=== PATIENT | male | born 1960 | race Caucasian/White ===

== ENCOUNTER 2017-08-23 14:43 | Inpatient (IN) | payer SELFPAY ==
[~2017-08-23] VITALS: Ht 185.4 cm; Wt 96.5 kg
[~2017-08-23 14:43] MED LIST: ACET5SOL5 PO; CIPR500T4 PO; HYDR-3533 PO; METR-1 PO; POTA-243 PO; PROM25SU8 PO
[2017-08-23 14:47] VITALS: BP 124/83; PULSE 117; RESP 22; TEMP 98.8; O2SAT 92
[2017-08-23] MEDS ORDERED: SODIUM CHLORIDE 0.9% FLUSH 10 ML FLUSH IV FLUSH PRN ×2 (16:15→20:00)
[2017-08-23 16:46] LABS: AUTOMATED NEUTROPHIL # 9.2 TH/MM3 (1.8-7.7); BASOPHIL # 0.1 TH/MM3 (0-0.2); BASOPHIL % 0.9 % (0.0-2.0); EOSINOPHIL # 0.2 TH/MM3 (0-0.4); EOSINOPHIL % 1.7 % (0.0-4.0); HEMATOCRIT 37.3 % (39.0-51.0); LYMPH % 15.4 % (9.0-44.0); LYMPHOCYTE # 2.2 TH/MM3 (1.0-4.8); MEAN CELL VOLUME 100.3 FL (80.0-100.0); MEAN CORPUSCULAR HEMOGLOBIN 33.3 PG (27.0-34.0); MEAN CORPUSCULAR HGB CONC 33.2 % (32.0-36.0); MONO % 17.9 % (0.0-8.0); NEUT % 64.1 % (16.0-70.0); PLATELET COUNT 142 TH/MM3 (150-450); RED BLOOD COUNT 3.72 MIL/MM3 (4.50-5.90); RED CELL DISTRIBUTION WIDTH 19.3 % (11.6-17.2); WHITE BLOOD COUNT 14.3 TH/MM3 (4.0-11.0)
[2017-08-23 16:54] LABS: HEMO FLAGS AUTO DIFF
[2017-08-23 16:59] LABS: APTT (PATIENT) 34.3 SEC (24.3-30.1); INTERNATIONAL NORMALIZED RATIO 1.8 RATIO; PROTHROMBIN TIME - PATIENT 20.1 SEC (9.8-11.6)
[2017-08-23 17:04] LABS: ALT (GPT) 46 U/L (12-78)
[2017-08-23 17:06] LABS: ALKALINE PHOSPHATASE 157 U/L (45-117); ANION GAP 9 MEQ/L (5-15); AST (GOT) 135 U/L (15-37); BICARBONATE 20.8 MEQ/L (21.0-32.0); BLOOD UREA NITROGEN 21 MG/DL (7-18); CHLORIDE 102 MEQ/L (98-107); GLOMERULAR FILTRATION RATE 93 ML/MIN (>89); SODIUM (NA) 132 MEQ/L (136-145); TOTAL BILIRUBIN ADULT 10.7 MG/DL (0.2-1.0)
[2017-08-23 17:24] LABS: SCAN/DIFF AUTO DIFF CONFIRMED
[2017-08-23 17:25] LABS: PLATELET ESTIMATE SMEAR LOW (NORMAL); PLATELET MORPHOLOGY NORMAL (NORMAL)
[2017-08-23 17:43] LABS: BLOOD, URINE NEG (NEG); COMMENT (UR) CULT NOT INDICATED; CULTURE IF INDICATED CULT NOT INDICATED; GLUCOSE,URINE NEG (NEG); GRANULAR CAST, URINE 1 /lpf; HYALINE CAST, URINE 6 /lpf (RARE); KETONE, URINE NEG (NEG); MUCUS URINE MOD /lpf (OCC); NITRITE,URINE NEG (NEG)
[2017-08-23 17:44] LABS: URINE COLOR DARK-YELLOW (YELLW/STRAW)
[2017-08-23] MEDS ORDERED: IOHEXOL 350 MG/ML 10 ML VIAL (for RAD DIAG) IVCONTRAST ONE (17:46)
[2017-08-23] MEDS ORDERED: LIDOCAINE HCL 1% PF 30 ML VIAL INFIL ONE (18:15)
--- NOTE | 2017-08-23 18:22 | PD ---
HPI Chief Complaint: Abdominal Pain Time Seen by Provider: 15:57 Travel History International Travel<30 days: No Contact w/Intl Traveler<30days: No Traveled to known affect area: No History of Present Illness HPI This is a 70-year-old male who has a history of hepatitis C per our records who presents to the emergency department with 2 months of increasing shortness of breath and abdominal distention, constant, severe, associated with swelling and oozing from his legs. He went to [facility] and was told to follow-up with her primary care physician but he has no insurance. He says he used to drink pretty heavily and now he drinks about 1 glass of wine per day. He denies any history of IV drug use. PFSH Past Medical History Arthritis: No Asthma: No Autoimmune Disease: No Blood Disorders: No Anxiety: No Depression: No Heart Rhythm Problems: No Cancer: No Cardiovascular Problems: No High Cholesterol: No Chest Pain: No Congestive Heart Failure: No COPD: No Cerebrovascular Accident: No Diabetes: No Diminished Hearing: No Endocrine: No Gastrointestinal Disorders: No GERD: No Glaucoma: No Genitourinary: No Headaches: No Hepatitis: No Hiatal Hernia: No Heparin Induced Thrombocytopen: No Hypertension: No Immune Disorder: No Implanted Vascular Access Dvce: No Kidney Stones: No Musculoskeletal: Yes Neurologic: No Psychiatric: No Reproductive: No Respiratory: No Integumentary: Yes (CELLULITIS) Migraines: No Myocardial Infarction: No Renal Failure: No Seizures: No Sickle Cell Disease: No Sleep Apnea: No Thyroid Disease: No Ulcer: No Past Surgical History Abdominal Surgery: No AICD: No Appendectomy: No Arteriovenous Shunt: No Cardiac Surgery: No Cholecystectomy: No Ear Surgery: No Endocrine Surgery: No Eye Surgery: No Genitourinary Surgery: No Gynecologic Surgery: No Insulin Pump: No Joint Replacement: No Neurologic Surgery: No Oral Surgery: No Pacemaker: No Thoracic Surgery: No Other Surgery: Yes (LEFT HAND SURGERY) Social History Alcohol Use: No (WEEKENDS-2 SHOTS TODAY-01/09/16) Tobacco Use: Yes (1 PPD) Substance Use: No (denied) Allergies-Medications (Allergen,Severity, Reaction): Coded Allergies: Sulfa (Sulfonamide Antibiotics) (Unverified Allergy, Severe, SWELLING TO HANDS, 08/23/17) penicillin V (Verified Allergy, Severe, VOMITING, 08/23/17) Reported Meds & Prescriptions Reported Meds & Active Scripts Active No Active Prescriptions or Reported Medications Review of Systems Except as stated in HPI: all other systems reviewed are Neg Physical Exam Narrative GENERAL: Ill-appearing SKIN: Jaundiced HEAD: Atraumatic. Normocephalic. EYES: Pupils equal and round. No injection or drainage. Scleral icterus. ENT: Moist mucous membranes. Telangiectasias over the face and chest NECK: Trachea midline. CARDIOVASCULAR: Regular rate and rhythm. No murmur appreciated. RESPIRATORY: Clear to auscultation. Breath sounds equal bilaterally. GASTROINTESTINAL: Abdomen soft, markedly distended with a fluid wave. Tender to palpation diffusely with no rebound or guarding. MUSCULOSKELETAL: No obvious deformities. NEUROLOGICAL: Awake and alert. No obvious cranial nerve deficits. PSYCHIATRIC: Appropriate mood and affect; insight and judgment normal. Data Data Last Documented VS Vital Signs Date Time Temp Pulse Resp B/P (MAP) Pulse Ox O2 Delivery O2 Flow Rate FiO2 08/23/17 16:20 20 08/23/17 14:47 98.8 117 124/83 (97) 92 Room Air Orders Orders Complete Blood Count With Diff (08/23/17 16:12) Comprehensive Metabolic Panel (08/23/17 16:12) Lipase (08/23/17 16:12) Prothrombin Time / Inr (Pt) (08/23/17 16:12) Act Partial Throm Time (Ptt) (08/23/17 16:12) Urinalysis - C+S If Indicated (08/23/17 16:12) Ct Abd/Pel W Iv Contrast(Rout) (08/23/17 16:12) Iv Access Insert/Monitor (08/23/17 16:12) Ecg Monitoring (08/23/17 16:12) Oximetry (08/23/17 16:12) Sodium Chloride 0.9% Flush (Ns Flush) (08/23/17 16:15) Electrocardiogram (08/23/17 16:12) Iohexol 350 Inj (Omnipaque 350 Inj) (08/23/17 17:46) Lidocaine Pf 1% Inj (Xylocaine-Mpf 1% In (08/23/17 18:15) Ed Poc Ultrasound (08/23/17 ) Levofloxacin 750 Mg Premix Inj (Levaquin (08/23/17 19:00) Albumin, Peritoneal Fluid (08/23/17 18:53) Glucose, Peritoneal Fluid (08/23/17 18:53) Ldh, Peritoneal Fluid (08/23/17 18:53) Peritoneal Cell Count + Diff (08/23/17 18:53) Peritoneal Fl Specific [place] (08/23/17 18:53) Total Protein Peritoneal Fluid (08/23/17 18:53) Fluid Culture And Gram Stain (08/23/17 18:53) Labs Laboratory Tests Test 08/23/17 16:20 08/23/17 16:45 White Blood Count 14.3 TH/MM3 Red Blood Count 3.72 MIL/MM3 Hemoglobin 12.4 GM/DL Hematocrit 37.3 % Mean Corpuscular Volume 100.3 FL Mean Corpuscular Hemoglobin 33.3 PG Mean Corpuscular Hemoglobin Concent 33.2 % Red Cell Distribution Width 19.3 % Platelet Count 142 TH/MM3 Mean Platelet Volume 9.0 FL Neutrophils (%) (Auto) 64.1 % Lymphocytes (%) (Auto) 15.4 % Monocytes (%) (Auto) 17.9 % Eosinophils (%) (Auto) 1.7 % Basophils (%) (Auto) 0.9 % Neutrophils # (Auto) 9.2 TH/MM3 Lymphocytes # (Auto) 2.2 TH/MM3 Monocytes # (Auto) 2.6 TH/MM3 Eosinophils # (Auto) 0.2 TH/MM3 Basophils # (Auto) 0.1 TH/MM3 CBC Comment AUTO DIFF Differential Comment AUTO DIFF CONFIRMED Platelet Estimate LOW Platelet Morphology Comment NORMAL Prothrombin Time 20.1 SEC Prothromb Time International Ratio 1.8 RATIO Activated Partial Thromboplast Time 34.3 SEC Blood Urea Nitrogen 21 MG/DL Creatinine 0.86 MG/DL Random Glucose 199 MG/DL Total Protein 7.5 GM/DL Albumin 2.0 GM/DL Calcium Level 8.6 MG/DL Alkaline Phosphatase 157 U/L Aspartate Amino Transf (AST/SGOT) 135 U/L Alanine Aminotransferase (ALT/SGPT) 46 U/L Total Bilirubin 10.7 MG/DL Sodium Level 132 MEQ/L Potassium Level 5.0 MEQ/L Chloride Level 102 MEQ/L Carbon Dioxide Level 20.8 MEQ/L Anion Gap 9 MEQ/L Estimat Glomerular Filtration Rate 93 ML/MIN Lipase 215 U/L Urine Color DARK-YELLOW Urine Turbidity HAZY Urine pH 6.0 Urine Specific [place] 1.033 Urine Protein 30 mg/dL Urine Glucose (UA) NEG mg/dL Urine Ketones NEG mg/dL Urine Occult Blood NEG Urine Nitrite NEG Urine Bilirubin MOD Urine Urobilinogen 8.0 MG/DL Urine Leukocyte Esterase NEG Urine WBC 2 /hpf Urine Hyaline Casts 6 /lpf Urine Granular Casts 1 /lpf Urine Mucus MOD /lpf Microscopic Urinalysis Comment CULT NOT INDICATED MDM Medical Decision Making Medical Screen Exam Complete: Yes Emergency Medical Condition: Yes Interpretation(s) Leukocytosis Mild hyponatremia Lipase is normal Differential Diagnosis Spontaneous bacterial peritonitis, hepatitis, alcoholic cirrhosis, hepatocellular carcinoma Narrative Course This is a 56-year-old male who presents to the emergency department with increasing shortness of breath and abdominal distention. He appears to have liver failure on exam. He has a documented positive hepatitis C test in our system. He has a leukocytosis and is tachycardic concerning for spontaneous bacterial peritonitis. I performed a diagnostic paracentesis on the patient and then started antibiotics. Patient will be admitted. I think he also would benefit from a therapeutic paracentesis and evaluation by gastroenterology. Procedures Procedure Narrative Paracentesis: 3 cc of 1% lidocaine were injected in the left lower quadrant. Ultrasound guidance was used. A 22-gauge spinal needle was used to aspirate 10 cc of clear peritoneal fluid. He tolerated the procedure well. Diagnosis Primary Impression: Ascites Qualified Codes: R18.8 - Other ascites Admitting Information Admitting Physician Requests: Observation Scripts No Active Prescriptions or Reported Meds Cassidy Melara MD Aug 23, 2017 18:22
[2017-08-23] MEDS ORDERED: LEVOFLOXACIN 750 MG PREMIX INJ 150 ML IV ONE (19:00)
[2017-08-23 19:30] VITALS: BP 150/92; PULSE 65; RESP 16; O2SAT 96
[2017-08-23] MEDS ORDERED: MORPHINE SULFATE 2 MG/ML INJ IV PUSH ONE (19:45)
[2017-08-23] MEDS ORDERED: ONDANSETRON HCL 4 MG/2 ML VIAL IV PUSH ONE (19:45)
--- NOTE | 2017-08-23 19:46 | HHI.HP ---
HPI Service Family Medicine Primary Care Physician No Primary Care Physician Admission Diagnosis ascites Diagnoses: International Travel<30 Days: No Contact w/Intl Traveler<30days: No History of Present Illness Patient is a 56 year old male with history of Hepatitis C who presents with 3 month history of this with worsening abdominal pain, fatigue, jaundice, leg swelling, and decreased appetite. He also notes occasional nosebleeds and easy bruising over this time but denies blood in stools. He notes no previous history of these symptoms aside from possibly requiring antibiotic treatment remotely for abdominal distention. He has no PCP. He had no diagnosis of cirrhosis and has never been seen by a interrelated special education teacher. He has never had paracenteses. He reports subjective fevers at home over the last 3 months. He had nausea and vomiting one month ago but this has not recurred. The leg swelling at this time he reports to be better than it has been previously but he notes a left leg wound that he has had for months have been weeping clear fluid. He has no trouble walking. He reports his weight has been stable (225lb) but he might have lost muscle mass. Review of Systems Constitutional: COMPLAINS OF: Diaphoretic episodes, Fever (subjective), Chills , Change in appetite, Night Sweats, DENIES: Weight gain, Weight loss Eyes: COMPLAINS OF: Blurred vision, DENIES: Diplopia Ears, nose, mouth, throat: DENIES: Hearing loss, Vertigo, Oral lesions, Throat pain, Ear Pain, Epistaxis, Odynophagia Respiratory: COMPLAINS OF: Cough (chronic, dry), Shortness of breath, DENIES: Wheezing, Sputum production Cardiovascular: COMPLAINS OF: Lower Extremity Edema, DENIES: Chest pain, Palpitations, Syncope Gastrointestinal: COMPLAINS OF: Constipation (every 2-3 days, last BM this AM) , DENIES: Abdominal pain, Black stools, Bloody stools, Diarrhea, Nausea, Vomiting, Difficulty Swallowing Genitourinary: DENIES: Urinary frequency, Urgency, Dysuria, Penile Discharge, Testicular Pain, Testicular Swelling Musculoskeletal: COMPLAINS OF: Back pain (chronic), DENIES: Joint pain, Neck pain Integumentary: DENIES: Pruritus, Rash Hematologic/lymphatic: COMPLAINS OF: Bruising, DENIES: Lymphadenopathy Neurologic: COMPLAINS OF: Poor Balance, DENIES: Headache, Localized weakness Psychiatric: COMPLAINS OF: Confusion, DENIES: Anxiety, Depression, Suicidal Ideation, Homicidal Ideation Past Family Social History Past Medical History Denies Past Surgical History Denies Reported Medications Reported Meds & Active Scripts Active No Active Prescriptions or Reported Medications Allergies: Coded Allergies: Sulfa (Sulfonamide Antibiotics) (Unverified Allergy, Severe, SWELLING TO HANDS, 08/23/17) penicillin V (Verified Allergy, Severe, VOMITING, 08/23/17) Active Ordered Medications Inpatient Medications Levofloxacin/ Dextrose 150 ml @ 100 mls/hr ONCE ONCE IV ; Start 08/23/17 at 19:00; Stop 08/23/17 at 20:29 Lidocaine HCl (Xylocaine-Mpf 1% Inj) 10 ml ONCE ONCE INFIL Last administered on 08/23/17t 19:21; Start 08/23/17 at 18:15; Stop 08/23/17 at 18:16; Status DC Sodium Chloride (NS Flush) 2 ml UNSCH PRN IV FLUSH FLUSH AFTER USING IV ACCESS ; Start 08/23/17 at 16:15 Family History Mother: HTN Father: colon cancer diagnosed age 60ish, age 70 Siblings: healthy Children: healthy son Social History Tobacco: 1/2PPD x a fews, 1PPD x 10+ years EtOH: 10-12 years heavy use, one year reduced use (3 glasses daily mixed drinks) Illicit: denies Lives with mother No stairs No assistive devices Physical Exam Vital Signs Vital Signs Date Time Temp Pulse Resp B/P (MAP) Pulse Ox O2 Delivery O2 Flow Rate FiO2 08/23/17 16:20 20 08/23/17 14:47 98.8 117 22 124/83 (97) 92 Room Air Physical Exam GENERAL: Patient is a male, lying in bed, with obviously distended abdomen. No acute distress. SKIN: Warm and dry. The skin is notable to be jaundiced with telangiectasias distributed diffusely about the trunk and arms. The skin over the lower extremities bilaterally have cobblestoning pattern suggestive of previous extensive swelling. There is a rip of approximately 2 inches on the left lateral leg which shows good granulation tissue and no signs of obvious infection. HEAD: Atraumatic. Normocephalic. EYES: PERRL. EOMI. There is notable scleral icterus. No injection or drainage. ENT: No nasal bleeding or discharge. Mucous membranes pink and moist. NECK: Trachea midline. No JVD. CARDIOVASCULAR: Regular rate and rhythm. No murmurs, gallops, or rubs on auscultation. No chest wall tenderness. RESPIRATORY: No accessory muscle use. Clear to auscultation without wheezes or rhonchi. Breath sounds equal bilaterally. GASTROINTESTINAL: Abdomen markedly distended and tense ascites noted. + Fluid wave. Bowel sounds are normal. The abdomen is diffusely tender to palpation. Hepatic and splenic margins not palpable. MUSCULOSKELETAL: Extremities without clubbing, cyanosis, or edema. No obvious deformities. No calf tenderness. Negative Homans sign. NEUROLOGICAL: Awake and alert. No obvious cranial nerve deficits. Motor grossly within normal limits. Normal strength in the extremities. Normal speech. PSYCHIATRIC: Appropriate mood and affect; insight and judgment normal. Laboratory Laboratory Tests Test 08/23/17 16:20 08/23/17 16:45 White Blood Count 14.3 Red Blood Count 3.72 Hemoglobin 12.4 Hematocrit 37.3 Mean Corpuscular Volume 100.3 Mean Corpuscular Hemoglobin 33.3 Mean Corpuscular Hemoglobin Concent 33.2 Red Cell Distribution Width 19.3 Platelet Count 142 Mean Platelet Volume 9.0 Neutrophils (%) (Auto) 64.1 Lymphocytes (%) (Auto) 15.4 Monocytes (%) (Auto) 17.9 Eosinophils (%) (Auto) 1.7 Basophils (%) (Auto) 0.9 Neutrophils # (Auto) 9.2 Lymphocytes # (Auto) 2.2 Monocytes # (Auto) 2.6 Eosinophils # (Auto) 0.2 Basophils # (Auto) 0.1 CBC Comment AUTO DIFF Differential Comment AUTO DIFF CONFIRMED Platelet Estimate LOW Platelet Morphology Comment NORMAL Prothrombin Time 20.1 Prothromb Time International Ratio 1.8 Activated Partial Thromboplast Time 34.3 Blood Urea Nitrogen 21 Creatinine 0.86 Random Glucose 199 Total Protein 7.5 Albumin 2.0 Calcium Level 8.6 Alkaline Phosphatase 157 Aspartate Amino Transf (AST/SGOT) 135 Alanine Aminotransferase (ALT/SGPT) 46 Total Bilirubin 10.7 Sodium Level 132 Potassium Level 5.0 Chloride Level 102 Carbon Dioxide Level 20.8 Anion Gap 9 Estimat Glomerular Filtration Rate 93 Lipase 215 Urine Color DARK-YELLOW Urine Turbidity HAZY Urine pH 6.0 Urine Specific [place] 1.033 Urine Protein 30 Urine Glucose (UA) NEG Urine Ketones NEG Urine Occult Blood NEG Urine Nitrite NEG Urine Bilirubin MOD Urine Urobilinogen 8.0 Urine Leukocyte Esterase NEG Urine WBC 2 Urine Hyaline Casts 6 Urine Granular Casts 1 Urine Mucus MOD Microscopic Urinalysis Comment CULT NOT INDICATED Result Diagram: 08/23/17 1620 08/23/[address] abdomen/pelvis 08/23/17: Cirrhotic liver with portal hypertension and ascites. The abdominal distension is secondary to the large amount of ascites. Caprini VTE Risk Assessment Caprini VTE Risk Assessment: Mod/High Risk (score >= 2) VTE Pharm Contraindication: End Stage Liver Disease VTE [facility] Contraindication: Severe LE edema Caprini Risk Assessment Model Point Value = 1 Point Value = 2 Point Value = 3 Point Value = 5 Age 41-60 Minor surgery BMI > 25 kg/m2 Swollen legs Varicose veins or History of unexplained or recurrent spontaneous Oral contraceptives or hormone replacement Sepsis (< 1 month) Serious lung disease, including pneumonia (< 1 month) Abnormal pulmonary function Acute myocardial infarction Congestive heart failure (< 1 month) History of inflammatory bowel disease Medical patient at bed rest Age 61-74 Arthroscopic surgery Major open surgery (> 45 min) Laparoscopic surgery (> 45 min) Malignancy Confined to bed (> 72 hours) Immobilizing plaster cast Central venous access Age >= 75 History of VTE Family history of VTE Factor V Leiden Prothrombin [id number] Lupus anticoagulant Anticardiolipin antibodies Elevated serum homocysteine Heparin-induced thrombocytopenia Other congenital or acquired thrombophilia Stroke (< 1 month) Elective arthroplasty Hip, pelvis, or leg fracture Acute spinal cord injury (< 1 month) Prophylaxis Regimen Total Risk Factor Score Risk Level Prophylaxis Regimen 0-1 Low Early ambulation 2 Moderate Order ONE of the following: *Sequential Compression Device (SCD) *Heparin 5000 units SQ BID 3-4 Higher Order ONE of the following medications: *Heparin 5000 units SQ TID *Enoxaparin/Lovenox 40 mg SQ daily (WT < 150 kg, CrCl > 30 mL/min) *Enoxaparin/Lovenox 30 mg SQ daily (WT < 150 kg, CrCl > 10-29 mL/min) *Enoxaparin/Lovenox 30 mg SQ BID (WT < 150 kg, CrCl > 30 mL/min) AND/OR *Sequential Compression Device (SCD) 5 or more Highest Order ONE of the following medications: *Heparin 5000 units SQ TID (Preferred with Epidurals) *Enoxaparin/Lovenox 40 mg SQ daily (WT < 150 kg, CrCl > 30 mL/min) *Enoxaparin/Lovenox 30 mg SQ daily (WT < 150 kg, CrCl > 10-29 mL/min) *Enoxaparin/Lovenox 30 mg SQ BID (WT < 150 kg, CrCl > 30 mL/min) AND *Sequential Compression Device (SCD) Assessment and Plan Assessment and Plan 56-year-old male with history of hepatitis C who presents with a 3-month chronic worsening abdominal pain, shortness of breath, jaundice, fatigue. He also reports some intermittent confusion. Significant tense ascites on exam. His presentation is highly suggestive of worsening end-stage liver disease with noted elevation in INR, low platelets, abnormal liver enzymes. There is also significant concern for possible SBP based on leukocytosis, tachycardia (though latter resolved prior to intervention). He has never seen a interrelated special education teacher and does not have PCP. He will be admitted for inpatient workup and management of cirrhosis and SBP. Code Status Full code Discussed Condition With SDW Dr. Turner Problem List: (1) SBP (spontaneous bacterial peritonitis) ICD Codes: K65.2 - Spontaneous bacterial peritonitis Status: Acute Plan: Patient with cirrhosis and tense ascites with systemic symptoms suggestive of SBP. Given acuity of treatment, ED physician has performed a diagnostic paracentesis with fluid studies pending. Therapeutic paracentesis is indicated once INR improved. He has urinary allergies to sulfa and penicillin, stating he had severe vomiting with the latter medication. He received 1 dose of Levaquin 750 mg IV in ED. * Admit to inpatient * Vital signs every 4 hours * Neuro checks every 4 hours * Continue Levaquin 750 mg every 24 hours, will broaden as indicated * Adding lactic acid to complete workup for sepsis. Patient does meet sepsis criteria by initial BS showing tachycardia in addition to his leukocytosis. Tachycardia resolved prior to antibiotic administration. We will forego 20ml/kg IVF bolus for sepsis given tense ascites * Blood culture are pending at this time. * Peritoneal fluid studies are pending at this time (2) Ascites ICD Codes: R18.8 - Other ascites Status: Acute Plan: Patient status post diagnostic paracentesis with fluid studies pending. CT abdomen and pelvis showing portal hypertension, cirrhosis, ascites. This patient's bilirubin is 10.7, AST/ALT ratio suggestive of alcoholic history. MCV is also mildly elevated. Also, the urine is notably red and UA shows he is spilling significant urobilinogen. * Order EtOH level and hepatitis profile * Therapeutic paracentesis ordered, INR is 1.8 on admission, will monitor labs * Spironolactone 100 mg daily and Lasix 40 mg 1 ordered, will continue Lasix if effective * Due to concern for SBP, antibiotics as above * Gastroenterology consult placed as patient has presumptively advanced stage liver disease and will need long-term management and follow-up. He has not had colonoscopy or EGD. (3) Cellulitis of both lower extremities ICD Codes: L03.115 - Cellulitis of right lower limb; L03.116 - Cellulitis of left lower limb Status: Acute Plan: Possible cellulitis though likely lower extremity symptoms are due to fluid excess. Patient with significant lower extremity swelling likely due to ascites. No suspicion for DVT on exam. The lesion noted on left lateral lower extremity is not immediately concerning for infection. * Nursing order for wound care with Xeroform and wrap with loose gauze. * Leg elevation * Diuretics as above * There is no discharge to culture at this time. * Only on Levaquin at this time, will expand antibiotics if indicated. (4) ETOH abuse ICD Codes: F10.10 - Alcohol abuse, uncomplicated Status: Acute Plan: Patient has a history of alcohol overuse. Last drink was reportedly today. Cirrhosis likely related to hepatitis versus alcohol. * Order EtOH level * Oral multivitamins * CIWA protocol * Neuro checks as noted (5) Fluids/Electrolytes/Nutrition/Prophylaxis Status: Acute Plan: Fluids: PO intake Electrolytes: Monitor as needed Nutrition: heart-healthy diet with 2 g sodium restriction DVT Prophylaxis: Early ambulation. Patient has coagulopathy due to liver disease , and has significant early edema. Will hold pharmacologic and mechanical prophylaxis GI Prophylaxis: Protonix 40 mg PO daily Physician Certification 2 Midnight Certification Type: Admission for Inpatient Services Order for Inpatient Services The services are ordered in accordance with Medicare regulations or non- Medicare payer requirements, as applicable. In the case of services not specified as inpatient-only, they are appropriately provided as inpatient services in accordance with the 2-midnight benchmark. Estimated LOS (days): 3 days is the estimated time the patient will need to remain in the hospital, assuming treatment plan goals are met and no additional complications. Post-Hospital Plan: Not yet determined Problem Qualifiers (1) Ascites: Qualified Codes: R18.8 - Other ascites Yenny De La Rosa MD R2 Aug 23, 2017 19:46
[2017-08-23] MEDS ORDERED: ACETAMINOPHEN 325 MG TAB PO PRN ×2 (20:00)
[2017-08-23] MEDS ORDERED: BISACODYL 10 MG SUPP RECTAL PRN (20:00)
[2017-08-23] MEDS ORDERED: LACTULOSE SYRUP 20 GM/30 ML CUP PO PRN (20:00)
[2017-08-23] MEDS ORDERED: FLUMAZENIL 0.5 MG/5 ML VIAL IV PUSH PRN (20:00)
[2017-08-23] MEDS ORDERED: LORazepam 2 MG TAB PO PRN (20:00)
[2017-08-23] MEDS ORDERED: MORPHINE SULFATE 4 MG/ML INJ IV PUSH PRN (20:00)
[2017-08-23] MEDS ORDERED: LORazepam 2 MG/ML VIAL IV PUSH PRN ×4 (20:00)
[2017-08-23] MEDS ORDERED: SENNOSIDES 8.6 MG TAB PO PRN (20:00)
[2017-08-23] MEDS ORDERED: MAGNESIUM HYDROXIDE SUSP 30 ML CUP PO PRN (20:00)
[2017-08-23] MEDS ORDERED: NALOXONE HCL 0.4 MG/ML AMP IV PUSH PRN (20:00)
[2017-08-23 20:13] LABS: PERITONEAL FL SPECIFIC GRAVITY 1.009
[2017-08-23] MEDS ORDERED: FUROSEMIDE 40 MG/4 ML VIAL IV PUSH ONE (20:30)
--- NOTE | 2017-08-23 21:00 | RADRPT ---
EXAM DATE/TIME: 08/23/2017 17:39 [facility] COMPARISON: CT ABDOMEN & PELVIS W CONTRAST, January 12, 2016, 22:42. INDICATIONS : Abdominal pain and distention X 2 months. IV CONTRAST: 97 cc Omnipaque 350 (iohexol) IV ORAL CONTRAST: No oral contrast ingested. RADIATION DOSE: 15.34 CTDIvol (mGy) MEDICAL HISTORY : Cellulitis SURGICAL HISTORY : None. ENCOUNTER: Initial ACUITY: 2 months PAIN SCALE: 8/10 LOCATION: Abdomen TECHNIQUE: Volumetric scanning of the abdomen and pelvis was performed. Using automated exposure control and adjustment of the mA and/or kV according to patient size, radiation dose was kept as low as reasonably achievable to obtain optimal diagnostic quality images. DICOM format image data is av ailable electronically for review and comparison. FINDINGS: The liver appears to have a slightly nodular surface. There is a large amount of ascite s. There is a small 1.1 cm hyperdensity seen in the superior aspect of the left lobe of the liver li bhavin representing a cyst. This was present previously. The spleen is mildly enlarged measuring 13 cm in length. No focal splenic lesions are seen. There are prominent vessels seen around the distal es ophagus and stomach consistent with varices. There is recanalized periumbilical vein all consistent with portal hypertension. The pancreas, adrenal glands and kidneys appear grossly normal. There are scattered atherosclerotic calcifications seen in the aorta. No aneurysm is present. Small lymph node is seen in the retroperi toneum. Significant adenopathy is not appreciated. The bowel is unremarkable. The pelvic structure s appear grossly intact. There is some minimal increased density seen at the lung bases likely relate d to atelectasis. There is degenerative change in the lower lumbar spine. CONCLUSION: Cirrhotic liver with portal hypertension and ascites. The abdominal distension is se condary to the large amount of ascites. Eliud Irby MD on August 23, 2017 at 18:24 Board Certified Radiologist. This report was verified electronically.
[2017-08-23 21:08] LABS: PERITONEAL HISTIOCYTES 1 %; PERITONEAL LYMPHS 58 %; PERITONEAL MESOTHELIAL 7 %; PERITONEAL MONOS 4 %; PERITONEAL POLYS(SEGS) 30 %
[2017-08-23 21:10] LABS: PERITONEAL WBC 120 /MM3 (0-10)
--- NOTE | 2017-08-23 21:18 | EKG ---
Date Performed: 08/23/2017 Time Performed: 17:10:44 PTAGE: 56 years EKG: SINUS TACHYCARDIA MODERATE VOLTAGE CRITERIA FOR LVH, CONSIDER NORMAL VARIANT POSSIBLE ANTER OLATERAL MYOCARDIAL INFARCTION ABNORMAL ECG NO PREVIOUS TRACING DOCTOR: Geovanni Richards Interpretating Date/Time 08/23/2017 21:17:47
[2017-08-23 22:09] LABS: CREATINE KINASE 77 U/L (39-308)
[2017-08-23] MEDS: DOCUSATE SODIUM 50 MG/SENNA 8.6 MG TAB PO SCH (22:53)
[2017-08-23] MEDS: SODIUM CHLORIDE 0.9% FLUSH 10 ML FLUSH IV FLUSH SCH (22:53)
[2017-08-23 22:58] VITALS: BP 127/67; PULSE 107; RESP 18; TEMP 97.7; O2SAT 97
[2017-08-23 23:04] LABS: HEMATOCRIT 33.4 % (39.0-51.0); MEAN CELL VOLUME 99.2 FL (80.0-100.0); MEAN CORPUSCULAR HEMOGLOBIN 32.8 PG (27.0-34.0); MEAN CORPUSCULAR HGB CONC 33.1 % (32.0-36.0); PLATELET COUNT 125 TH/MM3 (150-450); RED BLOOD COUNT 3.37 MIL/MM3 (4.50-5.90); RED CELL DISTRIBUTION WIDTH 19.4 % (11.6-17.2); REVIEW FLAG FINAL; WHITE BLOOD COUNT 13.1 TH/MM3 (4.0-11.0)
[2017-08-23 23:16] LABS: APTT (PATIENT) 36.8 SEC (24.3-30.1); INTERNATIONAL NORMALIZED RATIO 1.8 RATIO; PROTHROMBIN TIME - PATIENT 20.6 SEC (9.8-11.6)
[2017-08-24] VITALS (8 sets, daily range): BP systolic 105–178; BP diastolic 60–74; PULSE 73–109; RESP 18–24; TEMP 96.6–98.7; O2SAT 90–97
[2017-08-24 00:51] LABS: LACTIC ACID GHOST NOT REPORTABLE
[2017-08-24 02:45] LABS: AUTOMATED NEUTROPHIL # 9.3 TH/MM3 (1.8-7.7); BASOPHIL # 0.1 TH/MM3 (0-0.2); BASOPHIL % 0.8 % (0.0-2.0); EOSINOPHIL # 0.4 TH/MM3 (0-0.4); EOSINOPHIL % 2.8 % (0.0-4.0); HEMATOCRIT 32.5 % (39.0-51.0); LYMPH % 14.5 % (9.0-44.0); LYMPHOCYTE # 2.2 TH/MM3 (1.0-4.8); MEAN CELL VOLUME 98.5 FL (80.0-100.0); MEAN CORPUSCULAR HEMOGLOBIN 33.3 PG (27.0-34.0); MEAN CORPUSCULAR HGB CONC 33.8 % (32.0-36.0); NEUT % 59.9 % (16.0-70.0); PLATELET COUNT 124 TH/MM3 (150-450); WHITE BLOOD COUNT 15.5 TH/MM3 (4.0-11.0)
[2017-08-24 02:49] LABS: HEMO FLAGS AUTO DIFF
[2017-08-24 03:17] LABS: CREATINE KINASE 53 U/L (39-308)
[2017-08-24 03:51] LABS: TARGET CELLS 1+ (NORMAL)
[2017-08-24 03:52] LABS: PLATELET ESTIMATE SMEAR LOW (NORMAL); PLATELET MORPHOLOGY NORMAL (NORMAL); SCAN/DIFF AUTO DIFF CONFIRMED
[2017-08-24 07:20] LABS: INTERNATIONAL NORMALIZED RATIO 1.8 RATIO; PROTHROMBIN TIME - PATIENT 20.6 SEC (9.8-11.6)
[2017-08-24 07:46] LABS: ALKALINE PHOSPHATASE 139 U/L (45-117); ALT (GPT) 41 U/L (12-78); ANION GAP 8 MEQ/L (5-15); AST (GOT) 117 U/L (15-37); BLOOD UREA NITROGEN 20 MG/DL (7-18); CHLORIDE 101 MEQ/L (98-107); GLOMERULAR FILTRATION RATE 97 ML/MIN (>89); POTASSIUM 4.7 MEQ/L (3.5-5.1); SODIUM (NA) 133 MEQ/L (136-145)
--- NOTE | 2017-08-24 07:58 | EKG ---
Date Performed: 08/23/2017 Time Performed: 20:55:30 PTAGE: 56 years EKG: SINUS TACHYCARDIA ABNORMAL RHYTHM ECG No significant change from prior electrocardiogram. NO PREVIOUS TRACING DOCTOR: Geovanni Richards Interpretating Date/Time 08/24/2017 07:57:09
--- NOTE | 2017-08-24 08:59 | HHI.FPPN ---
Subjective Remarks Pt seen and examined this morning. No acute events overnight. Pt endorses not feeling improved. He denies chest pain, nausea or vomiting. He endorses continued abdominal discomfort. He anticipates having a therapeutic paracentesis later today. (Ayesha Severino MD R3) Objective Vitals Vital Signs Date Time Temp Pulse Resp B/P (MAP) Pulse Ox O2 Delivery O2 Flow Rate FiO2 08/24/17 08:00 97.0 103 18 115/74 (88) 91 08/24/17 04:00 98.7 98 18 107/63 (78) 95 08/24/17 02:42 98.2 109 18 105/70 (82) 90 08/23/17 22:58 97.7 107 18 127/67 (87) 97 08/23/17 22:56 16 08/23/17 21:49 08/23/17 19:30 65 16 150/92 (111) 96 Room Air 08/23/17 16:20 20 08/23/17 14:47 98.8 117 22 124/83 (97) 92 Room Air (Ayesha Severino MD R3) Result Diagram: 08/24/17 0225 08/24/17 0615 Objective Remarks GENERAL: Patient is a male, lying in bed, with obviously distended abdomen. No acute distress. SKIN: Warm and dry. The skin is notable to be jaundiced with telangiectasias distributed diffusely about the trunk and arms. The skin over the lower extremities bilaterally have cobblestoning pattern suggestive of previous extensive swelling. There is a rip of approximately 2 inches on the left lateral leg which shows good granulation tissue and no signs of obvious infection. HEAD: Atraumatic. Normocephalic. EYES: EOMI. There is notable scleral icterus. No injection or drainage. ENT: No nasal bleeding or discharge. Mucous membranes pink and moist. NECK: Trachea midline. No JVD. CARDIOVASCULAR: Regular rate and rhythm. No murmurs, gallops, or rubs on auscultation. No chest wall tenderness. RESPIRATORY: No accessory muscle use. Clear to auscultation without wheezes or rhonchi. Breath sounds equal bilaterally. GASTROINTESTINAL: Abdomen markedly distended and tense ascites noted. + Fluid wave. Bowel sounds are normal. The abdomen is diffusely tender to palpation. Hepatic and splenic margins not palpable due to distention. MUSCULOSKELETAL: Extremities without clubbing, cyanosis. No calf tenderness. Negative Homans sign. Patient with anasarca to lower abdomen. NEUROLOGICAL: Awake and alert. No obvious cranial nerve deficits. Motor grossly within normal limits. Normal strength in the extremities. Normal speech. PSYCHIATRIC: Appropriate mood and affect; insight and judgment normal. (Ayesha Severino MD R3) A/P Assessment and Plan 56-year-old male with history of hepatitis C who presents with a 3-month chronic worsening abdominal pain, shortness of breath, jaundice, fatigue. He also reports some intermittent confusion. Significant tense ascites on exam. His presentation is highly suggestive of worsening end-stage liver disease with noted elevation in INR, low platelets, abnormal liver enzymes. There is also significant concern for possible SBP based on leukocytosis, tachycardia (though latter resolved prior to intervention). He has never seen a oil expert and does not have PCP. He will be admitted for inpatient workup and management of cirrhosis and SBP. Discharge Planning Anticipate discharge after abdominal distention has improved. (Ayesha Severino MD R3) Attending Attestation THIS CASE WAS DISCUSSED WITH THE RESIDENT PHYSICIANS DR Joelle SEVERINO,DR Bryan SEVERINO ,DR JASMINE AND DR GUZMAN. I HAVE REVIEWED THE RECORD,PATIENT WAS SEEN AND EXAMINED AND AGREE WITH THE ABOVE NOTE AND PLAN OF CARE WAS DISCUSSED. I HAVE AUTHORIZED THE ORDERS (Xavi Pool MD) Problem List: (1) Ascites ICD Codes: R18.8 - Other ascites Status: Acute Plan: Patient with cirrhosis and tense ascites. Diagnostic paracentesis performed by ED physician. He has allergies to sulfa and penicillin, stating he had severe vomiting with the latter medication. He received 1 dose of Levaquin 750 mg IV in ED. * Therapeutic paracentesis anticipated for later today * Continue Levaquin 750 mg every 24 hours, will broaden as indicated * Lactic acid initially 2.7-->1.4 * Blood culture pending * Peritoneal fluid: WBCs elevated to 120, peritoneal RBCs elevated to 641. Specific gravity, neutrophils, lymphocytes, monocytes within normal limits. * Gastroenterology consult placed as patient has presumptively advanced stage liver disease and will need long-term management and follow-up, also with esophageal varices. He has not had colonoscopy or EGD. * Furosemide 40 mg IV BID * Propranolol 20 mg po BID * Spironolactone 100 mg po BID * Albumin low at 1.8, Pt given albumin 5% IV x1. Continue to monitor albumin, consider additional albumin if indicated. * Daily weights * Monitor I's and O's (2) Anasarca ICD Codes: R60.1 - Generalized edema Plan: Pt with anasarca to lower abdomen on exam. -See plan above for ascites (3) Cellulitis of both lower extremities ICD Codes: L03.115 - Cellulitis of right lower limb; L03.116 - Cellulitis of left lower limb Status: Acute Plan: Possible cellulitis though likely lower extremity symptoms are due to fluid excess. Patient with significant lower extremity swelling likely due to ascites. No suspicion for DVT on exam. The lesion noted on left lateral lower extremity is not immediately concerning for infection. * Nursing order for wound care with Xeroform and wrap with loose gauze. * Leg elevation * Diuretics as above * There is no discharge to culture at this time. * Only on Levaquin at this time, will expand antibiotics if indicated. (4) ETOH abuse ICD Codes: F10.10 - Alcohol abuse, uncomplicated Status: Acute Plan: Patient has a history of alcohol overuse. Last drink was reportedly today. Cirrhosis likely related to hepatitis versus alcohol. * Order EtOH level * Oral multivitamins * [facility] protocol * Neuro checks as noted (5) Fluids/Electrolytes/Nutrition/Prophylaxis Status: Acute Plan: Fluids: PO intake, avoid additional IV fluids due to anasarca Electrolytes: Monitor as needed Nutrition: heart-healthy diet with 2 g sodium restriction DVT Prophylaxis: Early ambulation. Patient has coagulopathy due to liver disease , and has significant early edema. Will hold pharmacologic and mechanical prophylaxis GI Prophylaxis: Protonix 40 mg PO daily (Ayesha Severino MD R3) Problem Qualifiers (1) Ascites: Qualified Codes: R18.8 - Other ascites Ayesha Severino MD R3 Aug 24, 2017 08:59 Xavi Pool MD Aug 25, 2017 06:16
[2017-08-24] MEDS: FUROSEMIDE 40 MG/4 ML VIAL IV PUSH SCH ×2 (09:00→18:00)
[2017-08-24] MEDS ORDERED: SPIRONOLACTONE 100 MG TAB PO SCH (09:00)
[2017-08-24] MEDS: DOCUSATE SODIUM 50 MG/SENNA 8.6 MG TAB PO SCH ×2 (09:00→21:00)
[2017-08-24] MEDS ORDERED: PHYTONADIONE 10 MG/ML VIAL SQ ONE (09:15)
[2017-08-24] MEDS ORDERED: ALBUMIN 5% INJ 250 ML IV ONE (09:30)
[2017-08-24] MEDS: LACTULOSE SYRUP 20 GM/30 ML CUP PO SCH ×3 (10:06→21:07)
[2017-08-24] MEDS: PROPRANOLOL HCL 20 MG TAB PO SCH ×2 (10:08→21:07)
[2017-08-24] MEDS: PANTOPRAZOLE SOD 40 MG DELAYED RELEASE TAB PO SCH (10:09)
[2017-08-24] MEDS: SPIRONOLACTONE 100 MG TAB PO SCH ×2 (10:09→18:40)
[2017-08-24] MEDS: MULTIVITAMIN TAB PO SCH (10:09)
[2017-08-24] MEDS: FOLIC ACID 1 MG TAB PO SCH (10:11)
[2017-08-24] MEDS: SODIUM CHLORIDE 0.9% FLUSH 10 ML FLUSH IV FLUSH SCH ×2 (10:11→21:08)
[2017-08-24] MEDS: THIAMINE HCL 100 MG TAB PO SCH (10:15)
[2017-08-24] MEDS: MORPHINE SULFATE 2 MG/ML INJ IM PRN ×3 (10:35→18:41)
--- NOTE | 2017-08-24 14:08 | RADRPT ---
EXAM DATE/TIME: 08/24/2017 11:35 [place] COMPARISON: No previous studies available for comparison. INDICATIONS : Ascities. MEDICAL HISTORY : Glasses. Blurred vision. Confusion. Constipation. Back pain. Alcohol use. SURGICAL HISTORY : Left hand surgery. ENCOUNTER: Initial ACUITY: 2 months PAIN SCORE: 4/10 LOCATION: Right lower quadrant FLUID: Total volume of 4100 cc of clear, yellow fluid was removed. Fluid was discarded. Paracentesis was therapeutic only. Post procedure scanning reveals no hematoma or other complication. TECHNIQUE: 1. Ultrasound guidance for abdominal paracentesis. 2. Paracentesis. The risks, benefits, and alternatives to ultrasound guided paracentesis were explained to the patient in detail including the risk of bleeding and infection. Written and verbal informed consent was obt ained. With the patient on the ultrasound table, ultrasound imaging was used to select the most appropriate approach for paracentesis. Overlying skin was prepped and draped in the usual sterile fashion and wi th a local anesthetic, a dermatotomy was made with an 11 blade scalpel. A 6 Greek Gdo-A-[id number] ca theter was introduced into the peritoneal cavity and fluid was collected. The patient tolerated the procedure well and left the ultrasound suite in stable condition. CONCLUSION: Uncomplicated ultrasound guided paracentesis. Don Miranda MD on August 24, 2017 at 14:07 Board Certified Radiologist. This report was verified electronically.
--- NOTE | 2017-08-24 15:09 | PD.CONS ---
HPI History of Present Illness This is a 56 year old male who presented to the emergency room for evaluation of worsening abdominal distention with lower extremity swelling. He reports that he has had worsening abdominal distention for the past 2 months. He occasionally has nausea/vomiting, but has not had any recently. Since his abdomen has been more distended, he does have some diffuse abdominal discomfort/ pressure- aggravated by his distention with no alleviating factors. He does have heartburn on a daily basis and takes Rolaids as needed. He does not take any PPI's and has never had an EGD. He has not had any hematemesis, melena, or hematochezia. He reports that he sometimes gets "fevers in my legs" but has not taken his temperature. He denies any usual constipation or diarrhea, but has had a loose bowel movement since his arrival to the hospital. He has never been told that he has liver cirrhosis or any known history of hepatitis or other liver disease. Of note, he did test positive for Hepatitis C antibodies in 2009, but the patient does not recall this and it is unclear if he had any further workup for this. He denies any family hx of liver disease. He used to drink heavily in his "younger years" but more recently drinks one glass of wine per day mixed in fruit juice. CT scan abdomen and pelvis (08/23/17)----> Cirrhotic liver with portal hypertension and ascites. The abdominal distention is secondary to the large amount of ascites. He underwent an US guided paracentesis (08/24/17)---> with removal of 4,100cc of peritoneal fluid. Peritoneal WBC 120, RBC 641, Neutrophils 30. Peritoneal cx is pending. GI was consulted for further evaluation of ascites, liver disease, and possible need for endoscopic evaluation. The patient has never had an EGD/Colonoscopy. His father had colon cancer in his 60's. (Daya Reid) PFSH Past Medical History GERD Past Surgical History Denies (Daya Reid) Coded Allergies: Sulfa (Sulfonamide Antibiotics) (Unverified Allergy, Severe, SWELLING TO HANDS, 08/23/17) penicillin V (Verified Allergy, Severe, VOMITING, 08/23/17) Medications Allergies Coded Allergies Type Severity Reaction Last Updated Verified Sulfa (Sulfonamide Antibiotics) Allergy Severe SWELLING TO HANDS 08/23/17 No penicillin V Allergy Severe VOMITING 08/23/17 Yes Active Scripts Medications Dose Route/Sig Max Daily Dose Days Date Category No Active Prescriptions or Reported Medications Rx Family History Father had colon cancer in his 60's Mother had HTN Social History Past ETOH abuse hx. Currently drinks 1 glass of wine mixed with fruit juice daily Smokes 1/3 ppd No illicit drug use. (Daya Reid) Review of Systems Constitutional: COMPLAINS OF: Fatigue, Fever, DENIES: Weight loss, Chills, Change in appetite Respiratory: COMPLAINS OF: Cough, Shortness of breath Cardiovascular: COMPLAINS OF: Lower Extremity Edema Gastrointestinal: COMPLAINS OF: Abdominal pain, Nausea, Vomiting, Swelling of Abdomen, Heartburn, DENIES: Black stools, Bloody stools, Constipation, Hematemesis Musculoskeletal: COMPLAINS OF: Back pain Integumentary: DENIES: Jaundice Hematologic/lymphatic: COMPLAINS OF: Bruising Psychiatric: DENIES: Confusion (Daya Reid) GI Exam Vitals I&O Vital Signs Date Time Temp Pulse Resp B/P (MAP) Pulse Ox O2 Delivery O2 Flow Rate FiO2 08/24/17 08:00 97.0 103 18 115/74 (88) 91 08/24/17 04:00 98.7 98 18 107/63 (78) 95 08/24/17 02:42 98.2 109 18 105/70 (82) 90 08/23/17 22:58 97.7 107 18 127/67 (87) 97 08/23/17 22:56 16 08/23/17 21:49 08/23/17 19:30 65 16 150/92 (111) 96 Room Air 08/23/17 16:20 20 Imaging Last Impressions Abdomen/Pelvis CT 08/23/17 1612 Signed Impressions: Service Date/Time: Wednesday, August 23, 2017 17:39 - CONCLUSION: Cirrhotic liver with portal hypertension and ascites. The abdominal distension is secondary to the large amount of ascites. Eliud Irby MD Laboratory Test 08/23/17 16:20 08/23/17 16:45 08/23/17 19:10 08/23/17 19:20 White Blood Count 14.3 TH/MM3 Red Blood Count 3.72 MIL/MM3 Hemoglobin 12.4 GM/DL Hematocrit 37.3 % Mean Corpuscular Volume 100.3 FL Mean Corpuscular Hemoglobin 33.3 PG Mean Corpuscular Hemoglobin Concent 33.2 % Red Cell Distribution Width 19.3 % Platelet Count 142 TH/MM3 Mean Platelet Volume 9.0 FL Neutrophils (%) (Auto) 64.1 % Lymphocytes (%) (Auto) 15.4 % Monocytes (%) (Auto) 17.9 % Eosinophils (%) (Auto) 1.7 % Basophils (%) (Auto) 0.9 % Neutrophils # (Auto) 9.2 TH/MM3 Lymphocytes # (Auto) 2.2 TH/MM3 Monocytes # (Auto) 2.6 TH/MM3 Eosinophils # (Auto) 0.2 TH/MM3 Basophils # (Auto) 0.1 TH/MM3 CBC Comment AUTO DIFF Differential Comment AUTO DIFF CONFIRMED Platelet Estimate LOW Platelet Morphology Comment NORMAL Prothrombin Time 20.1 SEC Prothromb Time International Ratio 1.8 RATIO Activated Partial Thromboplast Time 34.3 SEC Blood Urea Nitrogen 21 MG/DL Creatinine 0.86 MG/DL Random Glucose 199 MG/DL Total Protein 7.5 GM/DL Albumin 2.0 GM/DL Calcium Level 8.6 MG/DL Alkaline Phosphatase 157 U/L Aspartate Amino Transf (AST/SGOT) 135 U/L Alanine Aminotransferase (ALT/SGPT) 46 U/L Total Bilirubin 10.7 MG/DL Sodium Level 132 MEQ/L Potassium Level 5.0 MEQ/L Chloride Level 102 MEQ/L Carbon Dioxide Level 20.8 MEQ/L Anion Gap 9 MEQ/L Estimat Glomerular Filtration Rate 93 ML/MIN Lactate Dehydrogenase 562 U/L Total Creatine Kinase 77 U/L Troponin I LESS THAN 0.02 NG/ML Lipase 215 U/L Ethyl Alcohol Level 4 MG/DL Urine Color DARK-YELLOW Urine Turbidity HAZY Urine pH 6.0 Urine Specific Moyers 1.033 Urine Protein 30 mg/dL Urine Glucose (UA) NEG mg/dL Urine Ketones NEG mg/dL Urine Occult Blood NEG Urine Nitrite NEG Urine Bilirubin MOD Urine Urobilinogen 8.0 MG/DL Urine Leukocyte Esterase NEG Urine WBC 2 /hpf Urine Hyaline Casts 6 /lpf Urine Granular Casts 1 /lpf Urine Mucus MOD /lpf Microscopic Urinalysis Comment CULT NOT INDICATED Peritoneal Fluid Specific Moyers 1.009 Peritoneal Fluid WBC 120 /MM3 Peritoneal Fluid RBC 641 /MM3 Peritoneal Fluid Neutrophils 30 % Peritoneal Fluid Lymphocytes 58 % Peritoneal Fluid Monocytes 4 % Peritoneal Fluid Histiocytes 1 % Peritoneal Fluid Mesothelial Cells 7 % Peritoneal Fluid Total Protein 0.5 GM/DL Peritoneal Fluid Albumin 0.1 G/DL Peritoneal Fluid LDH 61 U/L Peritoneal Fluid Glucose 165 MG/DL Test 08/23/17 22:43 08/24/17 02:25 08/24/17 06:15 08/24/17 10:25 White Blood Count 13.1 TH/MM3 15.5 TH/MM3 Red Blood Count 3.37 MIL/MM3 3.30 MIL/MM3 Hemoglobin 11.1 GM/DL 11.0 GM/DL Hematocrit 33.4 % 32.5 % Mean Corpuscular Volume 99.2 FL 98.5 FL Mean Corpuscular Hemoglobin 32.8 PG 33.3 PG Mean Corpuscular Hemoglobin Concent 33.1 % 33.8 % Red Cell Distribution Width 19.4 % 19.0 % Platelet Count 125 TH/MM3 124 TH/MM3 Mean Platelet Volume 8.4 FL 8.5 FL Prothrombin Time 20.6 SEC 20.6 SEC Prothromb Time International Ratio 1.8 RATIO 1.8 RATIO Activated Partial Thromboplast Time 36.8 SEC Lactic Acid Level 2.7 mmol/L 1.4 mmol/L Neutrophils (%) (Auto) 59.9 % Lymphocytes (%) (Auto) 14.5 % Monocytes (%) (Auto) 22.0 % Eosinophils (%) (Auto) 2.8 % Basophils (%) (Auto) 0.8 % Neutrophils # (Auto) 9.3 TH/MM3 Lymphocytes # (Auto) 2.2 TH/MM3 Monocytes # (Auto) 3.4 TH/MM3 Eosinophils # (Auto) 0.4 TH/MM3 Basophils # (Auto) 0.1 TH/MM3 CBC Comment AUTO DIFF Differential Comment AUTO DIFF CONFIRMED Platelet Estimate LOW Platelet Morphology Comment NORMAL Target Cells 1+ Blood Smear Pathologist Review Total Creatine Kinase 53 U/L Troponin I LESS THAN 0.02 NG/ML Blood Urea Nitrogen 20 MG/DL Creatinine 0.83 MG/DL Random Glucose 99 MG/DL Total Protein 6.7 GM/DL Albumin 1.8 GM/DL Calcium Level 8.5 MG/DL Alkaline Phosphatase 139 U/L Aspartate Amino Transf (AST/SGOT) 117 U/L Alanine Aminotransferase (ALT/SGPT) 41 U/L Total Bilirubin 10.0 MG/DL Sodium Level 133 MEQ/L Potassium Level 4.7 MEQ/L Chloride Level 101 MEQ/L Carbon Dioxide Level 24.0 MEQ/L Anion Gap 8 MEQ/L Estimat Glomerular Filtration Rate 97 ML/MIN Ammonia 87 MCMOL/L Date/Time Source Procedure Growth Status 08/23/17 19:55 Blood Peripheral Aerobic Blood Culture - Preliminary NO GROWTH IN 1 DAY Resulted 08/23/17 19:55 Blood Peripheral Anaerobic Blood Culture - Preliminary NO GROWTH IN 1 DAY Resulted 08/23/17 19:10 Fluid Peritoneal Fluid Gram Stain - Final Resulted 08/23/17 19:10 Fluid Peritoneal Fluid Body Fluid Culture Pending Resulted Physical Examination HEENT: Normocephalic; atraumatic; jaundice. CHEST: Resp. even/unlabored CARDIAC: RRR ABDOMEN: Distended with large amount of ascites, mild diffuse tenderness, bowel sounds are present in all four quadrants. EXTREMITIES: BLE edema. LLE erythematous, drsg d/i SKIN: Normal; no rash; jaundice. BRICK KILN BURNER: No focal deficits; alert and oriented times three. (Daya Reid) Assessment and Plan Plan ASSESSMENT: - New onset ascites. 2 month hx of worsening abdominal distention and lower extremity swelling. US guided paracentesis (08/24/17)---> with removal of 4, 100cc of peritoneal fluid. Peritoneal WBC 120, RBC 641, Neutrophils 30. Peritoneal cx is pending. Lasix 40mg IV BID, Spironolactone 100mg po BID, Levaquin. - Elevated LFTs/Liver cirrhosis. Denies any known hx of liver cirrhosis. Past ETOH abuse, currently drinks 1 glass of wine per day mixed in fruit juice. CT scan abdomen and pelvis (08/23/17)----> Cirrhotic liver with portal hypertension and ascites. The abdominal distention is secondary to the large amount of ascites. HCV Ab (+) in 2009. Will get genotype/viral load and order liver workup. DF is 49.560. MELD Score 20. - Hepatic encephalopathy. Ammonia 87. Lactulose - HCV Ab (+) 2009. Will check viral load and genotype. - GERD. Daily symptoms for which he takes Rolaids. Never had an EGD. - Anemia. 11.0/32.5. Denies any obvious GI blood loss. Never had egd/ colonoscopy. Father had colon cancer in his 60's. - Leukocytosis. Peritoneal fluid not consistent with SBP. Does have cellulitis ble. Levaquin. BCx pending. WBC 15.5. - Thrombocytopenia, Coagulopathy, secondary to cirrhosis. No active bleeding. - Cellulitis BLE. Levaquin, per attending. PLAN: - EGD with possible band ligation Saturday - Obtain consents - 2 gram sodium diet - NPO after MN saturday night - Await peritoneal cx - Cont. PPI - Cont. Lasix 40mg IV BID - Cont. Spironolactone 100mg po BID - Cont. Thiamine/folate - Cont. Propranolol - Cont. Lactulose, but decrease to BID (having loose stools) - Add Xifaxan - Add Pentoxifylline for any alcoholic hepatitis component - AFP level - Hepatitis profile - FATEMEH, ASMA, AMA - Ferritin, Iron saturation - Ceruloplasmin, Alpha 1 Antitrypsin - Monitor CBC, PT/INR, CMP - Supportive care - Further recommendations to follow based on results of above - PT seen and examined by Dr. Shelley and myself and this note is written on his behalf (Daya Reid) Physician Comments Seen and examined with luis GIBBS for liver cirrhosis started. Egd planned for saturday. MOnitor labs. Will follow, thank you (Sumit Shelley MD) Daya Reid Aug 24, 2017 15:09 Sumit Shelley MD Aug 24, 2017 15:42
[2017-08-24] MEDS ORDERED: LIDOCAINE HCL 1% 20 ML VIAL ONE (15:25)
[2017-08-24 17:46] LABS: TRANSFERRIN IRON PROFILE 120 MG/DL (200-360)
[2017-08-24 17:49] LABS: FERRITIN 414 NG/ML (26-388)
[2017-08-24] MEDS: PENTOXIFYLLINE 400 MG CONTROLLED RELEASE TAB PO SCH (21:07)
[2017-08-24] MEDS: RIFAXIMIN 550 MG TAB PO SCH (21:07)
[2017-08-24] MEDS: LEVOFLOXACIN 750 MG PREMIX INJ 150 ML IV SCH (21:08)
[2017-08-25] VITALS (7 sets, daily range): BP systolic 98–117; BP diastolic 54–70; PULSE 70–73; RESP 16–22; TEMP 97–97.8; O2SAT 93–96
[2017-08-25] MEDS: MORPHINE SULFATE 2 MG/ML INJ IM PRN ×2 (01:35→08:06)
[2017-08-25] MEDS: PENTOXIFYLLINE 400 MG CONTROLLED RELEASE TAB PO SCH ×3 (05:41→21:52)
[2017-08-25 06:58] LABS: AUTOMATED NEUTROPHIL # 7.7 TH/MM3 (1.8-7.7); BASOPHIL % 0.3 % (0.0-2.0); EOSINOPHIL # 0.2 TH/MM3 (0-0.4); EOSINOPHIL % 1.3 % (0.0-4.0); HEMATOCRIT 35.6 % (39.0-51.0); LYMPH % 16.9 % (9.0-44.0); LYMPHOCYTE # 2.1 TH/MM3 (1.0-4.8); MEAN CELL VOLUME 99.3 FL (80.0-100.0); MEAN CORPUSCULAR HEMOGLOBIN 33.8 PG (27.0-34.0); MONO % 18.4 % (0.0-8.0); NEUT % 63.1 % (16.0-70.0); PLATELET COUNT 114 TH/MM3 (150-450); RED BLOOD COUNT 3.58 MIL/MM3 (4.50-5.90); RED CELL DISTRIBUTION WIDTH 19.8 % (11.6-17.2); WHITE BLOOD COUNT 12.2 TH/MM3 (4.0-11.0)
[2017-08-25 07:02] LABS: HEMO FLAGS AUTO DIFF
[2017-08-25 07:07] LABS: PROTHROMBIN TIME - PATIENT 22.5 SEC (9.8-11.6)
[2017-08-25 07:29] LABS: ALKALINE PHOSPHATASE 131 U/L (45-117); ALT (GPT) 36 U/L (12-78); ANION GAP 8 MEQ/L (5-15); AST (GOT) 87 U/L (15-37); BICARBONATE 26.5 MEQ/L (21.0-32.0); BLOOD UREA NITROGEN 20 MG/DL (7-18); CHLORIDE 100 MEQ/L (98-107); GLOMERULAR FILTRATION RATE 86 ML/MIN (>89); POTASSIUM 3.6 MEQ/L (3.5-5.1); SODIUM (NA) 134 MEQ/L (136-145); TOTAL BILIRUBIN ADULT 9.1 MG/DL (0.2-1.0)
[2017-08-25] MEDS: SODIUM CHLORIDE 0.9% FLUSH 10 ML FLUSH IV FLUSH SCH ×2 (08:03→20:20)
[2017-08-25] MEDS: FUROSEMIDE 40 MG/4 ML VIAL IV PUSH SCH ×2 (08:04→16:15)
[2017-08-25] MEDS: PANTOPRAZOLE SOD 40 MG DELAYED RELEASE TAB PO SCH (08:04)
[2017-08-25] MEDS: RIFAXIMIN 550 MG TAB PO SCH ×2 (08:04→20:19)
[2017-08-25] MEDS: LACTULOSE SYRUP 20 GM/30 ML CUP PO SCH ×2 (08:04→16:23)
[2017-08-25] MEDS: MULTIVITAMIN TAB PO SCH (08:05)
[2017-08-25] MEDS: DOCUSATE SODIUM 50 MG/SENNA 8.6 MG TAB PO SCH ×2 (08:05→20:20)
[2017-08-25] MEDS: PROPRANOLOL HCL 20 MG TAB PO SCH ×2 (08:05→20:19)
[2017-08-25] MEDS: FOLIC ACID 1 MG TAB PO SCH (08:05)
[2017-08-25] MEDS: THIAMINE HCL 100 MG TAB PO SCH (08:05)
[2017-08-25] MEDS: SPIRONOLACTONE 100 MG TAB PO SCH ×2 (08:06→16:15)
[2017-08-25] MEDS: LORazepam 1 MG TAB PO PRN ×4 (08:06→20:20)
[2017-08-25 08:26] LABS: EOSINOPHILS 3 % (0-4); NEUTROPHIL # MANUAL DIFF 8.9 TH/MM3 (1.8-7.7); POLYS (SEG NEUTROPHILS) 73 % (16-70); WBC DIFF SAMPLE 100
[2017-08-25 08:28] LABS: PLATELET ESTIMATE SMEAR LOW (NORMAL); PLATELET MORPHOLOGY NORMAL (NORMAL); SCAN/DIFF FINAL DIFF MANUAL
--- NOTE | 2017-08-25 09:31 | HHI.FPPN ---
Subjective Remarks Patient seen and examined this morning. He has 4L removed by paracentesis yesterday afternoon. He still feels "crappy" noting pain medications are not helping. He also notes they gave him Ativan this morning for withdrawals. He has has 6 BMs in last 24hr, light colored. He denies fevers, chills, N/V. He is ambulating without difficulty with walker and to bedside commode. Objective Vitals Vital Signs Date Time Temp Pulse Resp B/P (MAP) Pulse Ox O2 Delivery O2 Flow Rate FiO2 08/25/17 04:00 97.0 72 20 107/70 (82) 96 08/25/17 01:40 18 08/25/17 00:00 97.4 70 20 98/54 (69) 95 08/24/17 20:02 79 08/24/17 16:00 96.6 74 18 105/66 (79) 95 08/24/17 13:35 96.6 20 178/60 (99) 97 08/24/17 12:45 98.6 73 20 106/66 (79) 08/24/17 12:00 98.6 75 24 114/74 (87) I/O 08/24/17 08/24/17 08/24/17 08/25/17 08/25/17 08/25/17 07:00 15:00 23:00 07:00 15:00 23:00 Intake Total 2160 ml 350 ml Output Total 2200 ml 300 ml Balance -40 ml 50 ml Intake Oral 1760 ml 350 ml IV Total 400 ml Output Urine Total 2200 ml 300 ml # Bowel Movements 5 1 Result Diagram: 08/25/17 0634 08/25/17 0634 Imaging Last Impressions Cyst Biopsy Asp-Paracentesis US 08/24/17 0600 Signed Impressions: Service Date/Time: Thursday, August 24, 2017 11:35 - CONCLUSION: Uncomplicated ultrasound guided paracentesis. Don Miranda MD Abdomen/Pelvis CT 08/23/17 1612 Signed Impressions: Service Date/Time: Wednesday, August 23, 2017 17:39 - CONCLUSION: Cirrhotic liver with portal hypertension and ascites. The abdominal distension is secondary to the large amount of ascites. Eliud Irby MD Objective Remarks GENERAL: Patient is a male, lying in bed, appears to be in pain. SKIN: Warm and dry. The skin is notable to be jaundiced with telangiectasias distributed diffusely about the trunk and arms. The skin over the lower extremities bilaterally have cobblestoning pattern suggestive of previous extensive swelling. There is a rip of approximately 2 inches on the left lateral leg which shows good granulation tissue and no signs of obvious infection. HEAD: Atraumatic. Normocephalic. EYES: EOMI. There is notable scleral icterus. No injection or drainage. ENT: No nasal bleeding or discharge. Mucous membranes pink and moist. NECK: Trachea midline. No JVD. CARDIOVASCULAR: Regular rate and rhythm. No murmurs, gallops, or rubs on auscultation. No chest wall tenderness. RESPIRATORY: No accessory muscle use. Clear to auscultation without wheezes or rhonchi. Breath sounds equal bilaterally. GASTROINTESTINAL: Abdomen markedly distended but improved from yesterday, less tense and less painful. + Fluid wave. Bowel sounds are normal. The abdomen is still diffusely tender to palpation but improved. Hepatic and splenic margins not palpable due to distention. MUSCULOSKELETAL: Extremities without clubbing, cyanosis. No calf tenderness. Negative Homans sign. Patient with anasarca to lower abdomen. NEUROLOGICAL: Awake and alert. No obvious cranial nerve deficits. Motor grossly within normal limits. Normal strength in the extremities. Normal speech. PSYCHIATRIC: Appropriate mood and affect; insight and judgment normal. Medications and IVs Inpatient Medications Acetaminophen (Tylenol) 650 mg Q4H PRN PO PAIN SCALE 1 TO 5; Start 08/23/17 at 20:00 Albumin Human 250 ml @ 250 mls/hr ONCE ONCE IV Last administered on 14:53; Start 08/24/17 at 09:30; Stop 08/24/17 at 10:29; Status DC Bisacodyl (Dulcolax Supp) 10 mg DAILY PRN RECTAL SEVERE CONSITIPATION; Start 08/23/17 at 20:00 Flumazenil (Romazicon Inj) 0.2 mg Q1M PRN IV PUSH SEE LABEL COMMENTS; Start at 20:00 Folic Acid (Folate) 1 mg DAILY PO Last administered on 08/25/17 08:05; Start 08/24/17 at 09:00 Furosemide (Lasix Inj) 40 mg BID@,18 IV PUSH Last administered on 08/25/17 08:04; Start 08/24/17 at 09:00 Lactulose (Lactulose Liq) 30 ml BID PO Last administered on 08/25/17 08:04; Start 08/24/17 at 21:00 Levofloxacin/ Dextrose 150 ml @ 100 mls/hr Q24H IV Last administered on 21:08; Start 08/24/17 at 20:00 Lidocaine HCl (Xylocaine-Mpf 1% Inj) 10 ml ONCE ONCE INFIL Last administered on 08/23/17 19:21; Start 08/23/17 at 18:15; Stop 08/23/17 at 18:16; Status DC Lorazepam (Ativan Inj) 2 mg Q15M PRN IV PUSH CIWA > 20; Start 08/23/17 at 20: 00 Lorazepam (Ativan) 2 mg Q2H PRN PO CIWA 11-14; Start 08/23/17 at 20:00 Magnesium Hydroxide (Milk Of Magnesia Liq) 30 ml Q12H PRN PO Mild constipation ; Start 08/23/17 at 20:00 Morphine Sulfate (Morphine Inj) 2 mg Q4H PRN IV Pain 6-10; Start 08/25/17 at 10:30; Status UNV Multivitamins (Theragran) 1 tab DAILY PO Last administered on 08/25/17 08:05 ; Start 08/24/17 at 09:00 Naloxone HCl (Narcan Inj) 0.4 mg UNSCH PRN IV PUSH SEE LABEL COMMENTS; Start 08/23/17 at 20:00 Ondansetron HCl (Zofran Inj) 4 mg Q6H PRN IVP NAUSEA OR VOMITING; Start at 20:00 Pantoprazole Sodium (Protonix) 40 mg DAILY PO Last administered on 08/25/17 08:04; Start 08/24/17 at 09:00 Pentoxifylline (TRENtal SR) 400 mg Q8HR PO Last administered on 08/25/17 05: 41; Start 08/24/17 at 22:00 Phytonadione (Vitamin K Inj) 10 mg ONCE ONCE SQ Last administered on 10:07; Start 08/24/17 at 09:15; Stop 08/24/17 at 09:17; Status DC Propranolol HCl (Inderal) 20 mg Q12HR PO Last administered on 08/25/17 08:05 ; Start 08/24/17 at 09:00 Rifaximin (Xifaxan) 550 mg BID PO Last administered on 08/25/17 08:04; Start 08/24/17 at 21:00 Senna/Docusate Sodium (Suni-Colace) 1 tab BID PO Last administered on 22:53; Start 08/23/17 at 21:00 Sennosides (Senokot) 17.2 mg Q12H PRN PO Moderate constipation; Start at 20:00 Sodium Chloride (NS Flush) 2 ml BID IV FLUSH Last administered on 08/25/17 08 :03; Start 08/23/17 at 21:00 Spironolactone (Aldactone) 100 mg BID@,18 PO Last administered on 08/25/17 08:06; Start 08/24/17 at 09:00 Thiamine HCl (Vitamin B1) 100 mg DAILY PO Last administered on 08/25/17 08:05 ; Start 08/24/17 at 09:00 A/P Assessment and Plan 56-year-old male with history of hepatitis C who presents with a 3-month chronic worsening abdominal pain, shortness of breath, jaundice, fatigue. He also reports some intermittent confusion. Significant tense ascites on exam. His presentation is highly suggestive of worsening end-stage liver disease with noted elevation in INR, low platelets, abnormal liver enzymes. There is also significant concern for possible SBP based on leukocytosis, tachycardia (though latter resolved prior to intervention). He has never seen a stockbroker and does not have PCP. Admitted for inpatient workup and management of cirrhosis and SBP. Discharge Planning Anticipate discharge after further workup per GI Problem List: (1) Cirrhosis of liver ICD Codes: K74.60 - Unspecified cirrhosis of liver Plan: Patient with cirrhosis and tense ascites. Diagnostic paracentesis performed by ED physician, therapeutic paracentesis 4 L removed 08/24. He has allergies to sulfa and penicillin, stating he had severe vomiting with the latter medication. He received 1 dose of Levaquin 750 mg IV in ED. * Therapeutic paracentesis 08/24 * Continue Levaquin 750 mg every 24 hours, will broaden as indicated * Lactic acid initially 2.7-->1.4 * Blood culture pending * Peritoneal fluid: WBCs elevated to 120, peritoneal RBCs elevated to 641. Specific gravity, neutrophils, lymphocytes, monocytes within normal limits. * Gastroenterology consult placed as patient has presumptively advanced stage liver disease and will need long-term management and follow-up, also with esophageal varices. He has not had colonoscopy or EGD. * Furosemide 40 mg IV BID * Propranolol 20 mg po BID * Spironolactone 100 mg po BID * Albumin low at 1.8, Pt given albumin 5% IV x1. Continue to monitor albumin, consider additional albumin if indicated. * Daily weights * Monitor I's and O's * GI following, appreciate recommendations, additional medications to include rifaximin and Trental added per GI. He will have EGD 08/26, nothing by mouth after midnight (2) Ascites ICD Codes: R18.8 - Other ascites Status: Acute Plan: As above (3) Anasarca ICD Codes: R60.1 - Generalized edema Status: Acute Plan: Pt with anasarca to lower abdomen on exam. Plan as above (4) Cellulitis of both lower extremities ICD Codes: L03.115 - Cellulitis of right lower limb; L03.116 - Cellulitis of left lower limb Status: Chronic Plan: Possible cellulitis though likely lower extremity symptoms are due to fluid excess. Patient with significant lower extremity swelling likely due to ascites. No suspicion for DVT on exam. The lesion noted on left lateral lower extremity is not immediately concerning for infection. * Nursing order for wound care with Xeroform and wrap with loose gauze. * Leg elevation * Diuretics as above * There is no discharge to culture at this time. * Only on Levaquin at this time, will expand antibiotics if indicated. (5) ETOH abuse ICD Codes: F10.10 - Alcohol abuse, uncomplicated Status: Acute Plan: Patient has a history of alcohol overuse. Last drink was reportedly today. Cirrhosis likely related to hepatitis versus alcohol. * Order EtOH level * Oral multivitamins * CIWA protocol, quite Ativan this morning, continue to monitor, escalate care as needed * Neuro checks as noted (6) Fluids/Electrolytes/Nutrition/Prophylaxis Status: Acute Plan: Fluids: PO intake, avoid additional IV fluids due to anasarca Electrolytes: Monitor as needed Nutrition: heart-healthy diet with 2 g sodium restriction DVT Prophylaxis: Early ambulation. Patient has coagulopathy due to liver disease , and has significant early edema. Will hold pharmacologic and mechanical prophylaxis GI Prophylaxis: Protonix 40 mg PO daily Problem Qualifiers (1) Ascites: Qualified Codes: R18.8 - Other ascites Yenny De La Rosa MD R2 Aug 25, 2017 09:31
[2017-08-25] MEDS: MORPHINE SULFATE 2 MG/ML INJ IV PRN ×3 (12:13→20:21)
--- NOTE | 2017-08-25 15:59 | HHI.GIFU ---
Subjective Remarks Resting in bed. No vomiting. Decreased appetite- just does not feel hungry. No bleeding. States his urine seems to be getting darker again. (Daya Reid) Objective Vitals I&O Vital Signs Date Time Temp Pulse Resp B/P (MAP) Pulse Ox O2 Delivery O2 Flow Rate FiO2 08/25/17 12:00 97.8 72 16 105/62 (76) 95 08/25/17 08:00 97.6 73 18 117/64 (81) 96 08/25/17 04:00 97.0 72 20 107/70 (82) 96 08/25/17 01:40 18 08/25/17 00:00 97.4 70 20 98/54 (69) 95 08/24/17 20:02 79 08/24/17 16:00 96.6 74 18 105/66 (79) 95 I/O 08/24/17 08/24/17 08/24/17 08/25/17 08/25/17 08/25/17 07:00 15:00 23:00 07:00 15:00 23:00 Intake Total 2160 ml 350 ml Output Total 2200 ml 300 ml Balance -40 ml 50 ml Intake Oral 1760 ml 350 ml IV Total 400 ml Output Urine Total 2200 ml 300 ml # Bowel Movements 5 1 Laboratory Laboratory Tests Test 08/25/17 06:34 08/25/17 11:20 White Blood Count 12.2 Red Blood Count 3.58 Hemoglobin 12.1 Hematocrit 35.6 Mean Corpuscular Volume 99.3 Mean Corpuscular Hemoglobin 33.8 Mean Corpuscular Hemoglobin Concent 34.0 Red Cell Distribution Width 19.8 Platelet Count 114 Mean Platelet Volume 8.7 Neutrophils (%) (Auto) 63.1 Lymphocytes (%) (Auto) 16.9 Monocytes (%) (Auto) 18.4 Eosinophils (%) (Auto) 1.3 Basophils (%) (Auto) 0.3 Neutrophils # (Auto) 7.7 Lymphocytes # (Auto) 2.1 Monocytes # (Auto) 2.2 Eosinophils # (Auto) 0.2 Basophils # (Auto) 0.0 CBC Comment AUTO DIFF Differential Total Cells Counted 100 Neutrophils % (Manual) 73 Lymphocytes % 7 Monocytes % 17 Eosinophils % 3 Neutrophils # (Manual) 8.9 Differential Comment FINAL DIFF MANUAL Platelet Estimate LOW Platelet Morphology Comment NORMAL Prothrombin Time 22.5 Prothromb Time International Ratio 2.0 Blood Urea Nitrogen 20 Creatinine 0.92 Random Glucose 155 Total Protein 6.1 Albumin 1.7 Calcium Level 8.1 Alkaline Phosphatase 131 Aspartate Amino Transf (AST/SGOT) 87 Alanine Aminotransferase (ALT/SGPT) 36 Total Bilirubin 9.1 Sodium Level 134 Potassium Level 3.6 Chloride Level 100 Carbon Dioxide Level 26.5 Anion Gap 8 Estimat Glomerular Filtration Rate 86 Tumor Marker Alpha Fetoprotein 3.6 Ammonia 60 Date/Time Source Procedure Growth Status 08/23/17 19:55 Blood Peripheral Aerobic Blood Culture - Preliminary NO GROWTH IN 2 DAYS Resulted 08/23/17 19:55 Blood Peripheral Anaerobic Blood Culture - Preliminary NO GROWTH IN 2 DAYS Resulted 08/23/17 19:10 Fluid Peritoneal Fluid Gram Stain - Final Resulted 08/23/17 19:10 Fluid Peritoneal Fluid Body Fluid Culture - Preliminary NO GROWTH IN 48 HOURS. Resulted Imaging Last Impressions Cyst Biopsy Asp-Paracentesis US 08/24/17 0600 Signed Impressions: Service Date/Time: Thursday, August 24, 2017 11:35 - CONCLUSION: Uncomplicated ultrasound guided paracentesis. Don Miranda MD Abdomen/Pelvis CT 08/23/17 1612 Signed Impressions: Service Date/Time: Wednesday, August 23, 2017 17:39 - CONCLUSION: Cirrhotic liver with portal hypertension and ascites. The abdominal distension is secondary to the large amount of ascites. Eliud Irby MD Physical Exam HEENT: Normocephalic; atraumatic; jaundice. CHEST: Resp. even/unlabored CARDIAC: RRR ABDOMEN: Distended with large amount of ascites, mild diffuse tenderness, bowel sounds are present in all four quadrants. EXTREMITIES: BLE edema. LLE erythematous, drsg d/i SKIN: Normal; no rash; jaundice. 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 (Daya ReidP) Assessment and Plan Plan ASSESSMENT: - New onset ascites. 2 month hx of worsening abdominal distention and lower extremity swelling. US guided paracentesis (08/24/17)---> with removal of 4, 100cc of peritoneal fluid. Peritoneal WBC 120, RBC 641, Neutrophils 30. Peritoneal cx no growth 48 hours. Lasix 40mg IV BID, Spironolactone 100mg po BID , Levaquin. Still with significant ascites. Albumin 1.7. If persists, consider adding albumin - Elevated LFTs/Liver cirrhosis. Denies any known hx of liver cirrhosis. Past ETOH abuse, currently drinks 1 glass of wine per day mixed in fruit juice. CT scan abdomen and pelvis (08/23/17)----> Cirrhotic liver with portal hypertension and ascites. The abdominal distention is secondary to the large amount of ascites. HCV Ab (+) in 2009. Genotype/viral load pending. FATEMEH pending. AMA pending. ASMA pending. AFP 3.6 pending. Alpha 1 antitrypsin pending. Ceruloplasmin pending. Ferritin 414, Iron saturation 55.4% DF is 49.560. MELD Score 20. T. Bili 9.1, AST 87, ALT 36, Alk Phosph 131. Likely secondary to ETOH and likely HCV infection, but awaiting complete liver workup - Hepatic encephalopathy. Ammonia 87---> 60. Lactulose/Xifaxan - HCV Ab (+) 2009. Will check viral load and genotype. - GERD. Daily symptoms for which he takes Rolaids. Never had an EGD. - Decreased appetite/early satiety, EGD in am. ? from ascites compressing on stomach? - Anemia. 12.1/35.6. Denies any obvious GI blood loss. Never had egd/ colonoscopy. Father had colon cancer in his 60's. - Leukocytosis. Peritoneal fluid not consistent with SBP. Does have cellulitis ble. Levaquin. BCx no growth 2 days. WBC 12.2. - Thrombocytopenia, Coagulopathy, secondary to cirrhosis. No active bleeding. Plt 114,000 today. - Cellulitis BLE. Levaquin, per attending. PLAN: - EGD with possible band ligation Saturday - Obtain consents - 2 gram sodium diet - NPO after MN saturday night - Cont. PPI - Cont. Lasix 40mg IV BID - Cont. Spironolactone 100mg po BID - Cont. Thiamine/folate - Cont. Propranolol - Cont. Lactulose - Cont. Xifaxan - Cont. Pentoxifylline for any alcoholic hepatitis component - Await Genotype/viral load, FATEMEH, ASMA, AMA, Ceruloplasmin, Alpha 1 Antitrypsin - Monitor CBC, PT/INR, CMP - Supportive care - Further recommendations to follow based on results of above - PT seen and examined by Dr. Shelley and myself and this note is written on his behalf (Daya Reid) Physician Comments Seen and examined with BERNIE, egsung tomorrow (Sumit Shelley MD) Daya Reid Aug 25, 2017 15:59 Sumit Shelley MD Aug 26, 2017 16:03
[2017-08-25] MEDS: ONDANSETRON HCL 4 MG/2 ML VIAL IVP PRN (16:16)
[2017-08-25] MEDS: LEVOFLOXACIN 750 MG PREMIX INJ 150 ML IV SCH (20:20)
[2017-08-26] VITALS (9 sets, daily range): BP systolic 85–105; BP diastolic 52–67; PULSE 68–74; RESP 16–22; TEMP 97.1–98; O2SAT 93–100
[2017-08-26] MEDS: MORPHINE SULFATE 2 MG/ML INJ IV PRN ×3 (00:24→20:27)
[2017-08-26] MEDS: LORazepam 1 MG TAB PO PRN ×3 (00:24→16:53)
[2017-08-26] MEDS: PENTOXIFYLLINE 400 MG CONTROLLED RELEASE TAB PO SCH ×3 (05:07→20:26)
[2017-08-26 05:31] LABS: BASOPHIL # 0.1 TH/MM3 (0-0.2); BASOPHIL % 0.9 % (0.0-2.0); EOSINOPHIL # 0.3 TH/MM3 (0-0.4); EOSINOPHIL % 2.5 % (0.0-4.0); HEMATOCRIT 33.8 % (39.0-51.0); LYMPH % 19.4 % (9.0-44.0); LYMPHOCYTE # 2.4 TH/MM3 (1.0-4.8); MEAN CELL VOLUME 99.5 FL (80.0-100.0); MEAN CORPUSCULAR HEMOGLOBIN 33.9 PG (27.0-34.0); MEAN CORPUSCULAR HGB CONC 34.1 % (32.0-36.0); MONO % 20.5 % (0.0-8.0); NEUT % 56.7 % (16.0-70.0); PLATELET COUNT 110 TH/MM3 (150-450); RED CELL DISTRIBUTION WIDTH 19.6 % (11.6-17.2); WHITE BLOOD COUNT 12.4 TH/MM3 (4.0-11.0)
[2017-08-26 05:45] LABS: HEMO FLAGS AUTO DIFF
[2017-08-26 05:54] LABS: ANION GAP 6 MEQ/L (5-15); AST (GOT) 91 U/L (15-37); BICARBONATE 27.6 MEQ/L (21.0-32.0); BLOOD UREA NITROGEN 21 MG/DL (7-18); CHLORIDE 100 MEQ/L (98-107); GLOMERULAR FILTRATION RATE 82 ML/MIN (>89); POTASSIUM 3.4 MEQ/L (3.5-5.1); SODIUM (NA) 134 MEQ/L (136-145)
[2017-08-26 05:57] LABS: ALKALINE PHOSPHATASE 125 U/L (45-117); ALT (GPT) 36 U/L (12-78); TOTAL BILIRUBIN ADULT 8.5 MG/DL (0.2-1.0)
[2017-08-26 06:58] LABS: EOSINOPHILS 5 % (0-4); NEUTROPHIL # MANUAL DIFF 8.7 TH/MM3 (1.8-7.7); PLATELET ESTIMATE SMEAR LOW (NORMAL); PLATELET MORPHOLOGY NORMAL (NORMAL); POLYS (SEG NEUTROPHILS) 70 % (16-70); SCAN/DIFF FINAL DIFF MANUAL; WBC DIFF SAMPLE 100
[2017-08-26] MEDS: RIFAXIMIN 550 MG TAB PO SCH ×2 (08:50→20:26)
[2017-08-26] MEDS: LACTULOSE SYRUP 20 GM/30 ML CUP PO SCH ×2 (08:50→20:26)
[2017-08-26] MEDS: PANTOPRAZOLE SOD 40 MG DELAYED RELEASE TAB PO SCH (08:50)
[2017-08-26] MEDS: FOLIC ACID 1 MG TAB PO SCH (08:50)
[2017-08-26] MEDS: PROPRANOLOL HCL 20 MG TAB PO SCH ×2 (08:50→20:26)
[2017-08-26] MEDS: THIAMINE HCL 100 MG TAB PO SCH (08:50)
[2017-08-26] MEDS: MULTIVITAMIN TAB PO SCH (08:50)
[2017-08-26] MEDS: FUROSEMIDE 40 MG/4 ML VIAL IV PUSH SCH ×3 (08:51→16:54)
[2017-08-26] MEDS: SPIRONOLACTONE 100 MG TAB PO SCH ×3 (08:51→16:53)
[2017-08-26] MEDS: SODIUM CHLORIDE 0.9% FLUSH 10 ML FLUSH IV FLUSH SCH ×2 (08:51→20:25)
[2017-08-26] MEDS: DOCUSATE SODIUM 50 MG/SENNA 8.6 MG TAB PO SCH ×2 (08:52→20:26)
--- NOTE | 2017-08-26 11:33 | HHI.FPPN ---
Subjective Remarks Patient states that he is not feeling well this morning. He has pain in his abdomen and back. Of note, he has chronic back pain, but takes no medications for it. He states that he is feeling foggy and confused. His fiance said that he almost fell this morning when he tried to go to the bathroom. No chest pain, no shortness of breath, no fevers or chills, no nausea or vomiting. Patient has been having low blood pressures overnight. Objective Vitals Vital Signs Date Time Temp Pulse Resp B/P (MAP) Pulse Ox O2 Delivery O2 Flow Rate FiO2 08/26/17 08:00 98.0 74 16 99/61 (74) 93 08/26/17 07:00 97.7 72 20 100/64 (76) 95 08/26/17 04:00 97.1 74 20 94/52 (66) 95 08/26/17 03:01 97.8 71 20 103/59 (74) 98 08/26/17 00:29 18 08/26/17 00:00 97.6 68 22 85/52 (63) 94 08/25/17 20:25 72 08/25/17 20:00 97.8 73 22 98/55 (69) 93 08/25/17 16:00 97.4 71 20 106/64 (78) 96 08/25/17 12:00 97.8 72 16 105/62 (76) 95 I/O 08/25/17 08/25/17 08/25/17 08/26/17 08/26/17 08/26/17 07:00 15:00 23:00 07:00 15:00 23:00 Intake Total 350 ml 1550 ml 480 ml Output Total 300 ml 1000 ml Balance 50 ml 550 ml 480 ml Intake Oral 350 ml 1400 ml 480 ml IV Total 150 ml Output Urine Total 300 ml 1000 ml # Voids 2 # Bowel Movements 1 4 0 Result Diagram: 08/26/1751708/26/17517 Objective Remarks GENERAL: Patient is a male, lying in bed, appears to be in pain. SKIN: Warm and dry. The skin is notable to be jaundiced with telangiectasias distributed diffusely about the trunk and arms. The skin over the lower extremities bilaterally have cobblestoning pattern suggestive of previous extensive swelling. There is a rip of approximately 2 inches on the left lateral leg which shows good granulation tissue and no signs of obvious infection. HEAD: Atraumatic. Normocephalic. EYES: EOMI. There is notable scleral icterus. No injection or drainage. ENT: No nasal bleeding or discharge. Mucous membranes pink and moist. NECK: Trachea midline. No JVD. CARDIOVASCULAR: Regular rate and rhythm. No murmurs, gallops, or rubs on auscultation. No chest wall tenderness. RESPIRATORY: No accessory muscle use. Clear to auscultation without wheezes or rhonchi. Breath sounds equal bilaterally. GASTROINTESTINAL: Abdomen markedly distended but improved from yesterday, less tense. + Fluid wave. Bowel sounds are normal. The abdomen is still diffusely tender to palpation but improved. Hepatic and splenic margins not palpable due to distention. MUSCULOSKELETAL: Extremities without clubbing, cyanosis. No calf tenderness. Patient with anasarca to lower abdomen. NEUROLOGICAL: Awake and alert. No obvious cranial nerve deficits. Motor grossly within normal limits. Normal strength in the extremities. Normal speech. PSYCHIATRIC: Appropriate mood and affect; insight and judgment normal. A/P Assessment and Plan 56-year-old male with history of hepatitis C who presents with a 3-month chronic worsening abdominal pain, shortness of breath, jaundice, fatigue. He also reports some intermittent confusion. Significant tense ascites on exam. His presentation is highly suggestive of worsening end-stage liver disease with noted elevation in INR, low platelets, abnormal liver enzymes. There is also significant concern for possible SBP based on leukocytosis, tachycardia (though latter resolved prior to intervention). He has never seen a building services supervisor and does not have PCP. Admitted for inpatient workup and management of cirrhosis and SBP. Discharge Planning Anticipate discharge after further workup per GI Problem List: (1) Cirrhosis of liver ICD Codes: K74.60 - Unspecified cirrhosis of liver Plan: Patient with cirrhosis and tense ascites. Diagnostic paracentesis performed by ED physician, therapeutic paracentesis 4 L removed 08/24. He has allergies to sulfa and penicillin, stating he had severe vomiting with the latter medication. He received 1 dose of Levaquin 750 mg IV in ED. * Therapeutic paracentesis 08/24 * Continue Levaquin 750 mg every 24 hours, will broaden as indicated * Lactic acid initially 2.7-->1.4 * Blood culture pending * Peritoneal fluid: WBCs elevated to 120, peritoneal RBCs elevated to 641. Specific gravity, neutrophils, lymphocytes, monocytes within normal limits. * Gastroenterology consult placed as patient has presumptively advanced stage liver disease and will need long-term management and follow-up, also with esophageal varices. He has not had colonoscopy or EGD. * Furosemide 40 mg IV BID * Propranolol 20 mg po BID * Spironolactone 100 mg po BID * Albumin low at 1.8, Pt given albumin 5% IV x1. Continue to monitor albumin, consider additional albumin if indicated. * Daily weights * Monitor I's and O's * GI following, appreciate recommendations, additional medications to include rifaximin and Trental added per GI. He will have EGD today, 08/26, pt was nothing by mouth after midnight (2) Ascites ICD Codes: R18.8 - Other ascites Status: Acute Plan: As above (3) Anasarca ICD Codes: R60.1 - Generalized edema Status: Acute Plan: Pt with anasarca to lower abdomen on exam. Plan as above (4) Cellulitis of both lower extremities ICD Codes: L03.115 - Cellulitis of right lower limb; L03.116 - Cellulitis of left lower limb Status: Chronic Plan: Possible cellulitis though likely lower extremity symptoms are due to fluid excess. Patient with significant lower extremity swelling likely due to ascites. No suspicion for DVT on exam. The lesion noted on left lateral lower extremity is not immediately concerning for infection. * Nursing order for wound care with Xeroform and wrap with loose gauze. * Leg elevation * Diuretics as above * There is no discharge to culture at this time. * Only on Levaquin at this time, will expand antibiotics if indicated. (5) ETOH abuse ICD Codes: F10.10 - Alcohol abuse, uncomplicated Status: Acute Plan: Patient has a history of alcohol overuse. Last drink was reportedly today. Cirrhosis likely related to hepatitis versus alcohol. CIWA scores overnight 7,8,7. Was given 3mg of Ativan total. * Order EtOH level * Oral multivitamins * CIWA protocol, continue to monitor, escalate care as needed * Neuro checks as noted (6) Fluids/Electrolytes/Nutrition/Prophylaxis Status: Acute Plan: Fluids: PO intake, avoid additional IV fluids due to anasarca Electrolytes: Monitor as needed Nutrition: heart-healthy diet with 2 g sodium restriction DVT Prophylaxis: Early ambulation. Patient has coagulopathy due to liver disease , and has significant early edema. Will hold pharmacologic and mechanical prophylaxis GI Prophylaxis: Protonix 40 mg PO daily Problem Qualifiers (1) Ascites: Qualified Codes: R18.8 - Other ascites Kimmie Viera MD R1 Aug 26, 2017 11:33
--- NOTE | 2017-08-26 11:51 | PD.PROCEDR ---
GI Procedure REFERRING PHYSICIAN Dr. Pool PROCEDURE PERFORMED EGD with biopsy INDICATION FOR PROCEDURE Cirrhosis, reflux, anemia PROCEDURE: The procedure, risks and benefits were discussed with Mr. Salazar and informed consent was obtained. Anesthesia sedated him with Diprivan. He was placed in the left lateral decubitus position. EGD: The Pentax videoscope was introduced through the oropharynx and advanced to the second portion of the duodenum under direct visualization. Retroflexion was performed in the stomach. FINDINGS: Esophagus there was extensive whitish material throughout the esophagus consistent with Ayala esophagitis no varices were noted Stomach the gastric mucosa appeared to be somewhat edematous throughout consistent with portal hypertensive gastropathy biopsies were taken for further evaluation no ulcerations or erosions were noted and no gastric varices Duodenum this was normal ESTIMATED BLOOD LOSS: None SPECIMENS REMOVED: Gastric biopsies COMPLICATIONS: None IMPRESSION: Ayala esophagitis Portal gastropathy PLAN: Await biopsy Nystatin swish and swallow Continue with current supportive care Jorge Luis Mcclain MD Aug 26, 2017 11:51
[2017-08-26] MEDS ORDERED: DO NOT ADM ANY ANTICOAGULANT DRUGS PRN (11:57)
[2017-08-26] MEDS ORDERED: LIDOCAINE HCL 1% PF 5 ML AMPULE OTHER ONE (12:00)
[2017-08-26] MEDS ORDERED: PROPOFOL 200 MG/20 ML AMP IV ONE (12:00)
[2017-08-26] MEDS ORDERED: SUCCINYLCHOLINE CHLORIDE 100 MG/5 ML SYRINGE IV PUSH ONE (12:00)
[2017-08-26] MEDS ORDERED: *RESP: ALBUTEROL 2.5 MG/3 ML NEB (PRN) PERIprocedural Use ONLY NEB ONE (12:01)
[2017-08-26] MEDS: NYSTATIN SUSP 500,000 U/5 ML CUP SWISH-SWAL SCH ×3 (13:55→20:28)
[2017-08-26] MEDS: NICOTINE 7 MG/24 HR PATCH T-DERMAL SCH (13:55)
[2017-08-26] MEDS: ONDANSETRON HCL 4 MG/2 ML VIAL IVP PRN (16:53)
[2017-08-26] MEDS: LEVOFLOXACIN 750 MG PREMIX INJ 150 ML IV SCH (20:24)
[2017-08-27] VITALS (7 sets, daily range): BP systolic 90–105; BP diastolic 51–63; PULSE 64–75; RESP 16–18; TEMP 96.1–98.2; O2SAT 92–99
[2017-08-27] MEDS: MORPHINE SULFATE 2 MG/ML INJ IV PRN ×2 (00:18→04:55)
[2017-08-27] MEDS: PENTOXIFYLLINE 400 MG CONTROLLED RELEASE TAB PO SCH ×3 (04:55→22:56)
[2017-08-27 06:14] LABS: AUTOMATED NEUTROPHIL # 5.7 TH/MM3 (1.8-7.7); BASOPHIL # 0.1 TH/MM3 (0-0.2); BASOPHIL % 0.7 % (0.0-2.0); EOSINOPHIL # 0.3 TH/MM3 (0-0.4); EOSINOPHIL % 2.7 % (0.0-4.0); HEMATOCRIT 33.3 % (39.0-51.0); LYMPH % 21.7 % (9.0-44.0); LYMPHOCYTE # 2.3 TH/MM3 (1.0-4.8); MEAN CELL VOLUME 98.9 FL (80.0-100.0); MEAN CORPUSCULAR HEMOGLOBIN 34.1 PG (27.0-34.0); MEAN CORPUSCULAR HGB CONC 34.5 % (32.0-36.0); MONO % 22.5 % (0.0-8.0); NEUT % 52.4 % (16.0-70.0); PLATELET COUNT 94 TH/MM3 (150-450); RED BLOOD COUNT 3.36 MIL/MM3 (4.50-5.90); RED CELL DISTRIBUTION WIDTH 19.9 % (11.6-17.2); WHITE BLOOD COUNT 10.8 TH/MM3 (4.0-11.0)
[2017-08-27 06:17] LABS: HEMO FLAGS AUTO DIFF
[2017-08-27 06:25] LABS: ANION GAP 8 MEQ/L (5-15); AST (GOT) 93 U/L (15-37); BICARBONATE 26.8 MEQ/L (21.0-32.0); BLOOD UREA NITROGEN 19 MG/DL (7-18); CHLORIDE 99 MEQ/L (98-107); GLOMERULAR FILTRATION RATE 85 ML/MIN (>89); POTASSIUM 3.2 MEQ/L (3.5-5.1); SODIUM (NA) 134 MEQ/L (136-145)
[2017-08-27 06:27] LABS: ALT (GPT) 37 U/L (12-78)
[2017-08-27 06:30] LABS: ALKALINE PHOSPHATASE 119 U/L (45-117); TOTAL BILIRUBIN ADULT 7.3 MG/DL (0.2-1.0)
[2017-08-27 07:24] LABS: BANDS 3 % (0-6); BASOPHILS 1 % (0-2); EOSINOPHILS 1 % (0-4); NEUTROPHIL # MANUAL DIFF 8.1 TH/MM3 (1.8-7.7); PLATELET ESTIMATE SMEAR LOW (NORMAL); PLATELET MORPHOLOGY NORMAL (NORMAL); POLYS (SEG NEUTROPHILS) 72 % (16-70); SCAN/DIFF FINAL DIFF MANUAL; WBC DIFF SAMPLE 100
[2017-08-27] MEDS ORDERED: FLUCONAZOLE 200 MG TAB PO ONE (08:00)
[2017-08-27] MEDS: DOCUSATE SODIUM 50 MG/SENNA 8.6 MG TAB PO SCH ×2 (09:00→21:00)
[2017-08-27] MEDS: REMOVE OLD PATCH T-DERMAL SCH (09:00)
[2017-08-27] MEDS: NICOTINE 7 MG/24 HR PATCH T-DERMAL SCH (09:00)
[2017-08-27] MEDS: PANTOPRAZOLE SOD 40 MG DELAYED RELEASE TAB PO SCH (09:51)
[2017-08-27] MEDS: LACTULOSE SYRUP 20 GM/30 ML CUP PO SCH ×2 (09:51→21:00)
[2017-08-27] MEDS: MULTIVITAMIN TAB PO SCH (09:52)
[2017-08-27] MEDS: SPIRONOLACTONE 100 MG TAB PO SCH ×2 (09:52→18:00)
[2017-08-27] MEDS: FUROSEMIDE 40 MG/4 ML VIAL IV PUSH SCH ×2 (09:53→18:30)
[2017-08-27] MEDS: NYSTATIN SUSP 500,000 U/5 ML CUP SWISH-SWAL SCH ×4 (09:53→22:47)
[2017-08-27] MEDS: RIFAXIMIN 550 MG TAB PO SCH ×2 (09:54→22:47)
[2017-08-27] MEDS: THIAMINE HCL 100 MG TAB PO SCH (09:56)
[2017-08-27] MEDS: PROPRANOLOL HCL 20 MG TAB PO SCH ×2 (09:56→21:00)
[2017-08-27] MEDS: FOLIC ACID 1 MG TAB PO SCH (09:56)
[2017-08-27] MEDS: SODIUM CHLORIDE 0.9% FLUSH 10 ML FLUSH IV FLUSH SCH ×2 (09:57→21:00)
--- NOTE | 2017-08-27 11:06 | HHI.FPPN ---
Subjective Remarks Patient states that he is uncomfortable today. He is still having pain in his abdomen. He inquired about what pain medication he can use that would not affect his liver. No chest pain, no shortness of breath, no nausea or vomiting, no diarrhea or constipation. His stools are more formed. Objective Vitals Vital Signs Date Time Temp Pulse Resp B/P (MAP) Pulse Ox O2 Delivery O2 Flow Rate FiO2 08/27/17 08:00 97.1 75 16 99/63 (75) 92 08/27/17 04:43 97.3 72 18 105/59 (74) 95 08/27/17 00:00 96.1 75 18 95/51 (66) 96 08/26/17 20:00 97.6 74 18 105/61 (76) 96 08/26/17 17:21 95 21 08/26/17 16:00 97.7 72 18 103/67 (79) 93 08/26/17 12:30 97.4 68 22 107/71 (83) 94 Nasal Cannula 4 08/26/17 12:15 69 21 115/68 (84) 91 Nasal Cannula 4 08/26/17 12:00 72 17 101/65 (77) 89 Nasal Cannula 5 08/26/17 11:58 97.9 72 17 110/71 (84) 84 Nasal Cannula 5 08/26/17 11:15 70 18 104/65 (78) 100 I/O 08/26/17 08/26/17 08/26/17 08/27/17 08/27/17 08/27/17 06:59 14:59 22:59 06:59 14:59 22:59 Intake Total 480 ml 200 ml 600 ml 150 ml Output Total 300 ml Balance 480 ml 200 ml 300 ml 150 ml Intake Oral 480 ml 0 ml 600 ml IV Total 0 ml 150 ml Other 200 ml Output Urine Total 300 ml # Voids 2 0 6 4 # Bowel Movements 0 1 3 1 Result Diagram: 08/27/1738 08/27/17537 Objective Remarks GENERAL: Patient is a male, lying in bed, appears to be in pain. SKIN: Warm and dry. The skin is notable to be jaundiced with telangiectasias distributed diffusely about the trunk and arms. The skin over the lower extremities bilaterally have cobblestoning pattern suggestive of previous extensive swelling. There is a rip of approximately 2 inches on the left lateral leg which shows good granulation tissue and no signs of obvious infection. HEAD: Atraumatic. Normocephalic. EYES: EOMI. There is notable scleral icterus. No injection or drainage. ENT: No nasal bleeding or discharge. Mucous membranes pink and moist. NECK: Trachea midline. No JVD. CARDIOVASCULAR: Regular rate and rhythm. No murmurs, gallops, or rubs on auscultation. No chest wall tenderness. RESPIRATORY: No accessory muscle use. Clear to auscultation without wheezes or rhonchi. Breath sounds equal bilaterally. GASTROINTESTINAL: Abdomen markedly distended but improved from yesterday, less tense. + Fluid wave. Bowel sounds are normal. The abdomen is still diffusely tender to palpation but improved. Hepatic and splenic margins not palpable due to distention. MUSCULOSKELETAL: Extremities without clubbing, cyanosis. No calf tenderness. Patient with anasarca to lower abdomen. NEUROLOGICAL: Awake and alert. No obvious cranial nerve deficits. Motor grossly within normal limits. Normal strength in the extremities. Normal speech. PSYCHIATRIC: Appropriate mood and affect; insight and judgment normal. A/P Assessment and Plan 56-year-old male with history of hepatitis C who presents with a 3-month chronic worsening abdominal pain, shortness of breath, jaundice, fatigue. He also reports some intermittent confusion. Significant tense ascites on exam. His presentation is highly suggestive of worsening end-stage liver disease with noted elevation in INR, low platelets, abnormal liver enzymes. There is also significant concern for possible SBP based on leukocytosis, tachycardia (though latter resolved prior to intervention). He has never seen a computer numerical control operator and does not have PCP. Admitted for inpatient workup and management of cirrhosis and SBP. Discharge Planning Anticipate discharge after further workup per GI and cleared by them Problem List: (1) Cirrhosis of liver ICD Codes: K74.60 - Unspecified cirrhosis of liver Plan: Patient with cirrhosis and tense ascites. Diagnostic paracentesis performed by ED physician, therapeutic paracentesis 4 L removed 08/24. He has allergies to sulfa and penicillin, stating he had severe vomiting with the latter medication. He received 1 dose of Levaquin 750 mg IV in ED. * Therapeutic paracentesis 08/24 * Continue Levaquin 750 mg every 24 hours, will broaden as indicated * Lactic acid initially 2.7-->1.4 * Blood culture pending * Peritoneal fluid: WBCs elevated to 120, peritoneal RBCs elevated to 641. Specific gravity, neutrophils, lymphocytes, monocytes within normal limits. * Gastroenterology consult placed as patient has presumptively advanced stage liver disease and will need long-term management and follow-up, also with esophageal varices. He has not had colonoscopy or EGD. * Furosemide 40 mg IV BID * Propranolol 20 mg po BID * Spironolactone 100 mg po BID * Albumin low at 1.8, Pt given albumin 5% IV x1. Continue to monitor albumin, consider additional albumin if indicated. * Daily weights * Monitor I's and O's * GI following, appreciate recommendations, additional medications to include rifaximin and Trental added per GI. * EGD on 08/26 showed possible ayala esophagitis and portal hypertensive gastropathy, no varices (2) Ascites ICD Codes: R18.8 - Other ascites Status: Acute Plan: As above (3) Anasarca ICD Codes: R60.1 - Generalized edema Status: Acute Plan: Pt with anasarca to lower abdomen on exam. Plan as above (4) Ayala esophagitis ICD Codes: B37.81 - Candidal esophagitis Plan: Ayala esophagitis noted during EGD on 08/26. * Started on Nystatin 5ml swish and swallow by GI * Fluconazole 200mg po once, then 100mg po qD for 21 days (5) Cellulitis of both lower extremities ICD Codes: L03.115 - Cellulitis of right lower limb; L03.116 - Cellulitis of left lower limb Status: Chronic Plan: Possible cellulitis though likely lower extremity symptoms are due to fluid excess. Patient with significant lower extremity swelling likely due to ascites. No suspicion for DVT on exam. The lesion noted on left lateral lower extremity is not immediately concerning for infection. * Nursing order for wound care with Xeroform and wrap with loose gauze. * Leg elevation * Diuretics as above * There is no discharge to culture at this time. * Only on Levaquin at this time, will expand antibiotics if indicated. (6) ETOH abuse ICD Codes: F10.10 - Alcohol abuse, uncomplicated Status: Acute Plan: Patient has a history of alcohol overuse. Last drink was reportedly today. Cirrhosis likely related to hepatitis versus alcohol. CIWA scores overnight 1,0,1. * Order EtOH level * Oral multivitamins * CIWA protocol, continue to monitor, escalate care as needed * Neuro checks as noted (7) Fluids/Electrolytes/Nutrition/Prophylaxis Status: Acute Plan: Fluids: PO intake, avoid additional IV fluids due to anasarca Electrolytes: Monitor as needed Nutrition: heart-healthy diet with 2 g sodium restriction DVT Prophylaxis: Early ambulation. Patient has coagulopathy due to liver disease , and has significant early edema. Will hold pharmacologic and mechanical prophylaxis GI Prophylaxis: Protonix 40 mg PO daily Pain mgmt: Tylenol for scale 1-5, oxycodone for 6-10 Problem Qualifiers (1) Ascites: Qualified Codes: R18.8 - Other ascites Kimmie Viera MD R1 Aug 27, 2017 11:06
[2017-08-27] MEDS ORDERED: FLUC100T2 PO (11:32)
[2017-08-27] MEDS ORDERED: NALOXONE HCL 0.4 MG/ML AMP IV PUSH PRN (14:45)
--- NOTE | 2017-08-27 22:13 | HHI.GIFU ---
Subjective Remarks Laying in bed complains of abdominal discomfort denies any bleeding at bedside Objective Vitals I&O Vital Signs Date Time Temp Pulse Resp B/P (MAP) Pulse Ox O2 Delivery O2 Flow Rate FiO2 08/27/17 20:00 98.1 74 18 90/58 (69) 99 08/27/17 17:50 94 21 08/27/17 16:00 96.9 64 17 92/54 (67) 94 08/27/17 12:00 98.2 68 16 92/56 (68) 92 08/27/17 08:00 97.1 75 16 99/63 (75) 92 08/27/17 04:43 97.3 72 18 105/59 (74) 95 08/27/17 00:00 96.1 75 18 95/51 (66) 96 I/O 08/26/17 08/26/17 08/26/17 08/27/17 08/27/17 08/27/17 07:00 15:00 23:00 07:00 15:00 23:00 Intake Total 480 ml 200 ml 600 ml 150 ml 600 ml Output Total 300 ml 400 ml Balance 480 ml 200 ml 300 ml 150 ml 200 ml Intake Oral 480 ml 0 ml 600 ml 600 ml IV Total 0 ml 150 ml Other 200 ml Output Urine Total 300 ml 400 ml # Voids 2 0 6 4 # Bowel Movements 0 1 3 1 1 Laboratory Laboratory Tests Test 08/27/17 05:38 08/27/17 09:03 White Blood Count 10.8 Red Blood Count 3.36 Hemoglobin 11.5 Hematocrit 33.3 Mean Corpuscular Volume 98.9 Mean Corpuscular Hemoglobin 34.1 Mean Corpuscular Hemoglobin Concent 34.5 Red Cell Distribution Width 19.9 Platelet Count 94 Mean Platelet Volume 9.1 Neutrophils (%) (Auto) 52.4 Lymphocytes (%) (Auto) 21.7 Monocytes (%) (Auto) 22.5 Eosinophils (%) (Auto) 2.7 Basophils (%) (Auto) 0.7 Neutrophils # (Auto) 5.7 Lymphocytes # (Auto) 2.3 Monocytes # (Auto) 2.4 Eosinophils # (Auto) 0.3 Basophils # (Auto) 0.1 CBC Comment AUTO DIFF Differential Total Cells Counted 100 Neutrophils % (Manual) 72 Band Neutrophils % 3 Lymphocytes % 10 Monocytes % 13 Eosinophils % 1 Basophils % 1 Neutrophils # (Manual) 8.1 Differential Comment FINAL DIFF MANUAL Platelet Estimate LOW Platelet Morphology Comment NORMAL Blood Urea Nitrogen 19 Creatinine 0.93 Random Glucose 135 Total Protein 6.2 Albumin 1.7 Calcium Level 8.0 Alkaline Phosphatase 119 Aspartate Amino Transf (AST/SGOT) 93 Alanine Aminotransferase (ALT/SGPT) 37 Total Bilirubin 7.3 Sodium Level 134 Potassium Level 3.2 Chloride Level 99 Carbon Dioxide Level 26.8 Anion Gap 8 Estimat Glomerular Filtration Rate 85 Ammonia 55 HIV (1&2) Antibody NEGATIVE Date/Time Source Procedure Growth Status 08/23/17 19:55 Blood Peripheral Aerobic Blood Culture - Preliminary NO GROWTH IN 4 DAYS Resulted 08/23/17 19:55 Blood Peripheral Anaerobic Blood Culture - Preliminary NO GROWTH IN 4 DAYS Resulted 08/23/17 19:10 Fluid Peritoneal Fluid Gram Stain - Final Complete 08/23/17 19:10 Fluid Peritoneal Fluid Body Fluid Culture - Final NO GROWTH IN 72 HRS.--AEROBICALLY OR ... Complete Physical Exam HEENT: Normocephalic; atraumatic; jaundice. CHEST: Resp. even/unlabored CARDIAC: RRR ABDOMEN: Distended with large amount of ascites, mild diffuse tenderness, bowel sounds are present in all four quadrants. EXTREMITIES: BLE edema. LLE erythematous, drsg d/i SKIN: Normal; no rash; jaundice. TEMPORARY DATA ENTRY CLERK: No focal deficits; alert and oriented times three. Assessment and Plan Plan ASSESSMENT: - New onset ascites. 2 month hx of worsening abdominal distention and lower extremity swelling. US guided paracentesis (08/24/17)---> with removal of 4, 100cc of peritoneal fluid. Peritoneal WBC 120, RBC 641, Neutrophils 30. Peritoneal cx no growth 48 hours. Lasix 40mg IV BID, Spironolactone 100mg po BID , Levaquin. Still with significant ascites. Albumin 1.7. If persists, consider adding albumin - Elevated LFTs/Liver cirrhosis, acute alcoholic hepatitis. Denies any known hx of liver cirrhosis. Past ETOH abuse, currently drinks 1 glass of wine per day mixed in fruit juice. CT scan abdomen and pelvis (08/23/17)----> Cirrhotic liver with portal hypertension and ascites. The abdominal distention is secondary to the large amount of ascites. HCV Ab (+) in 2009. Genotype/viral load pending. FATEMEH pending. AMA pending. ASMA pending. AFP 3.6 pending. Alpha 1 antitrypsin pending. Ceruloplasmin pending. Ferritin 414, Iron saturation 55.4% DF is 49.560. MELD Score 20. T. Bili 9.1, AST 87, ALT 36, Alk Phosph 131. Likely secondary to ETOH and likely HCV infection, but awaiting complete liver workup - Hepatic encephalopathy. Ammonia 87---> 60. Lactulose/Xifaxan - HCV Ab (+) . Will check viral load and genotype. - GERD. Daily symptoms for which he takes Rolaids. Never had an EGD. - Decreased appetite/early satiety, EGD in am. ? from ascites compressing on stomach? - Anemia. 12.1/35.6. Denies any obvious GI blood loss. Never had egd/ colonoscopy. Father had colon cancer in his 60's. - Leukocytosis. Peritoneal fluid not consistent with SBP. Does have cellulitis ble. Levaquin. BCx no growth 2 days. WBC 12.2. - Thrombocytopenia, Coagulopathy, secondary to cirrhosis. No active bleeding. Plt 114,000 today. - Cellulitis BLE. Levaquin, per attending. PLAN: - 2 gram sodium diet - Cont. PPI - Cont. Lasix 40mg IV BID - Cont. Spironolactone 100mg po BID - Cont. Thiamine/folate - Cont. Propranolol - Cont. Lactulose - Cont. Xifaxan - Cont. Pentoxifylline for any alcoholic hepatitis component - Await Genotype/viral load, FATEMEH, ASMA, AMA, Ceruloplasmin, Alpha 1 Antitrypsin - Monitor CBC, PT/INR, CMP - Supportive care -PT noted to be increasing I would hold off on discharge at this point until we see it stabilize or decline Jorge Luis Mcclain MD Aug 27, 2017 22:13
[2017-08-28] VITALS (9 sets, daily range): BP systolic 96–105; BP diastolic 63–71; PULSE 70–76; RESP 16–20; TEMP 96.3–98.7; O2SAT 92–98
[2017-08-28] MEDS: PENTOXIFYLLINE 400 MG CONTROLLED RELEASE TAB PO SCH ×3 (05:15→19:40)
[2017-08-28] MEDS: DOCUSATE SODIUM 50 MG/SENNA 8.6 MG TAB PO SCH ×2 (08:58→19:40)
[2017-08-28] MEDS: LACTULOSE SYRUP 20 GM/30 ML CUP PO SCH ×2 (08:58→19:40)
[2017-08-28] MEDS: NICOTINE 7 MG/24 HR PATCH T-DERMAL SCH (09:00)
[2017-08-28] MEDS: NYSTATIN SUSP 500,000 U/5 ML CUP SWISH-SWAL SCH ×4 (09:00→19:40)
[2017-08-28] MEDS: REMOVE OLD PATCH T-DERMAL SCH (09:00)
[2017-08-28] MEDS: PROPRANOLOL HCL 20 MG TAB PO SCH ×2 (09:00→19:40)
[2017-08-28] MEDS: THIAMINE HCL 100 MG TAB PO SCH (09:03)
[2017-08-28] MEDS: MULTIVITAMIN TAB PO SCH (09:04)
[2017-08-28] MEDS: PANTOPRAZOLE SOD 40 MG DELAYED RELEASE TAB PO SCH (09:04)
[2017-08-28] MEDS: FLUCONAZOLE 100 MG TAB PO SCH (09:05)
[2017-08-28] MEDS: SPIRONOLACTONE 100 MG TAB PO SCH ×2 (09:05→17:09)
[2017-08-28] MEDS: FOLIC ACID 1 MG TAB PO SCH (09:05)
[2017-08-28] MEDS: RIFAXIMIN 550 MG TAB PO SCH ×2 (09:05→19:40)
[2017-08-28] MEDS: FUROSEMIDE 40 MG/4 ML VIAL IV PUSH SCH ×2 (09:06→17:09)
[2017-08-28] MEDS: SODIUM CHLORIDE 0.9% FLUSH 10 ML FLUSH IV FLUSH SCH ×2 (09:06→19:41)
[2017-08-28 09:50] LABS: HCV RNA PCR IU/ML 146 IU/mL (0-14); HCV RNA PCR LOGIU/ML 2.16 (0-1.18)
--- NOTE | 2017-08-28 14:49 | HHI.FPPN ---
Subjective Remarks Patient states that he is not feeling well this morning. He is feeling nauseous but not having any vomiting he sometimes feels like he is wheezing. He also felt hot and cold off and on throughout the night. He had 2 bouts of fecal incontinence yesterday because he was unable to make it to the bedside toilet on time and requests that his lactulose be decreased. No chest pain. He still has abdominal pain. His fiance' states that she sent the labor commissioner away this morning, due to patient sleeping. Objective Vitals Vital Signs Date Time Temp Pulse Resp B/P (MAP) Pulse Ox O2 Delivery O2 Flow Rate FiO2 08/28/17 12:00 97.4 73 17 105/67 (80) 95 08/28/17 08:00 97.5 72 16 104/65 (78) 93 08/28/17 05:49 73 08/28/17 05:20 70 18 100/68 (79) 94 08/28/17 04:00 98.4 73 18 96/63 (74) 95 08/28/17 00:00 98.7 73 20 99/63 (75) 97 08/27/17 20:00 98.1 74 18 90/58 (69) 99 08/27/17 17:50 94 21 08/27/17 16:00 96.9 64 17 92/54 (67) 94 I/O 08/27/17 08/27/17 08/27/17 08/28/17 08/28/17 08/28/17 07:00 15:00 23:00 07:00 15:00 23:00 Intake Total 150 ml 600 ml 960 ml Output Total 400 ml Balance 150 ml 200 ml 960 ml Intake Oral 600 ml 960 ml IV Total 150 ml Output Urine Total 400 ml # Voids 4 3 # Bowel Movements 1 1 3 Result Diagram: 08/27/1738 08/27/17537 Objective Remarks GENERAL: Patient is a male, lying in bed, appears to be in pain. SKIN: Warm and dry. The skin is notable to be jaundiced with telangiectasias distributed diffusely about the trunk and arms. The skin over the lower extremities bilaterally have cobblestoning pattern suggestive of previous extensive swelling, but no edema present. There is a rip of approximately 2 inches on the left lateral leg which shows good granulation tissue and no signs of obvious infection. HEAD: Atraumatic. Normocephalic. EYES: EOMI. There is notable scleral icterus. No injection or drainage. ENT: No nasal bleeding or discharge. Mucous membranes pink and moist. NECK: Trachea midline. No JVD. CARDIOVASCULAR: Regular rate and rhythm. No murmurs, gallops, or rubs on auscultation. No chest wall tenderness. RESPIRATORY: No accessory muscle use. Clear to auscultation without wheezes or rhonchi. Breath sounds equal bilaterally. GASTROINTESTINAL: Abdomen markedly distended. + Fluid wave. Bowel sounds are normal. The abdomen is still diffusely tender to palpation but improved. Hepatic and splenic margins not palpable due to distention. MUSCULOSKELETAL: Extremities without clubbing, cyanosis. No calf tenderness. Patient with anasarca to lower abdomen. NEUROLOGICAL: Awake and alert. No obvious cranial nerve deficits. Motor grossly within normal limits. Normal strength in the extremities. Normal speech. PSYCHIATRIC: Appropriate mood and affect; insight and judgment normal. A/P Assessment and Plan 56-year-old male with history of hepatitis C who presents with a 3-month chronic worsening abdominal pain, shortness of breath, jaundice, fatigue. He also reports some intermittent confusion. Significant tense ascites on exam. His presentation is highly suggestive of worsening end-stage liver disease with noted elevation in INR, low platelets, abnormal liver enzymes. There is also significant concern for possible SBP based on leukocytosis, tachycardia (though latter resolved prior to intervention). He has never seen a african history professor and does not have PCP. Admitted for inpatient workup and management of cirrhosis and SBP. Discharge Planning Anticipate discharge after further workup per GI and cleared by them Problem List: (1) Cirrhosis of liver ICD Codes: K74.60 - Unspecified cirrhosis of liver Plan: Patient with cirrhosis and tense ascites. Diagnostic paracentesis performed by ED physician, therapeutic paracentesis 4 L removed 08/24. He has allergies to sulfa and penicillin, stating he had severe vomiting with the latter medication. He received 1 dose of Levaquin 750 mg IV in ED. * Therapeutic paracentesis 08/24 * Continue Levaquin 750 mg every 24 hours, will broaden as indicated * Lactic acid initially 2.7-->1.4 * Blood culture pending * Peritoneal fluid: WBCs elevated to 120, peritoneal RBCs elevated to 641. Specific gravity, neutrophils, lymphocytes, monocytes within normal limits. * Gastroenterology consult placed as patient has presumptively advanced stage liver disease and will need long-term management and follow-up, also with esophageal varices. He has not had colonoscopy or EGD. * Furosemide 40 mg IV BID * Propranolol 20 mg po BID * Spironolactone 100 mg po BID * Lactulose 30ml po BID * Albumin low at 1.8, Pt given albumin 5% IV x1. Continue to monitor albumin, consider additional albumin if indicated. * Daily weights * Monitor I's and O's * GI following, appreciate recommendations, additional medications to include rifaximin and Trental added per GI. * EGD on 08/26 showed possible ayala esophagitis and portal hypertensive gastropathy, no varices * hold discharge until PT stabilizes or declines per note on 08/27 (2) Ascites ICD Codes: R18.8 - Other ascites Status: Acute Plan: As above (3) Anasarca ICD Codes: R60.1 - Generalized edema Status: Acute Plan: Pt with anasarca to lower abdomen on exam. Plan as above (4) Ayala esophagitis ICD Codes: B37.81 - Candidal esophagitis Plan: Ayala esophagitis noted during EGD on 08/26. * Started on Nystatin 5ml swish and swallow by GI * Fluconazole 200mg po once on 08/27, then 100mg po qD for 21 days (08/28- ) (5) Cellulitis of both lower extremities ICD Codes: L03.115 - Cellulitis of right lower limb; L03.116 - Cellulitis of left lower limb Status: Chronic Plan: Possible cellulitis though likely lower extremity symptoms are due to fluid excess. Patient with significant lower extremity swelling likely due to ascites. No suspicion for DVT on exam. The lesion noted on left lateral lower extremity is not immediately concerning for infection. * Nursing order for wound care with Xeroform and wrap with loose gauze. * Leg elevation * Diuretics as above * There is no discharge to culture at this time. * Only on Levaquin at this time, will expand antibiotics if indicated. (6) ETOH abuse ICD Codes: F10.10 - Alcohol abuse, uncomplicated Status: Acute Plan: Patient has a history of alcohol overuse. Last drink was reportedly today. Cirrhosis likely related to hepatitis versus alcohol. CIWA scores overnight 1,0,1. * Order EtOH level * Oral multivitamins * CIWA protocol, continue to monitor, escalate care as needed * Neuro checks as noted (7) Fluids/Electrolytes/Nutrition/Prophylaxis Status: Acute Plan: Fluids: PO intake, avoid additional IV fluids due to anasarca Electrolytes: Monitor as needed Nutrition: heart-healthy diet with 2 g sodium restriction DVT Prophylaxis: Early ambulation. Patient has coagulopathy due to liver disease , and has significant early edema. Will hold pharmacologic and mechanical prophylaxis GI Prophylaxis: Protonix 40 mg PO daily Pain mgmt: Tylenol for scale 1-5, oxycodone for 6-10 Problem Qualifiers (1) Ascites: Qualified Codes: R18.8 - Other ascites Kimmie Viera MD R1 Aug 28, 2017 14:49
[2017-08-28 15:47] LABS: AUTOMATED NEUTROPHIL # 4.9 TH/MM3 (1.8-7.7); BASOPHIL # 0.1 TH/MM3 (0-0.2); BASOPHIL % 1.2 % (0.0-2.0); EOSINOPHIL # 0.3 TH/MM3 (0-0.4); EOSINOPHIL % 3.3 % (0.0-4.0); HEMATOCRIT 34.3 % (39.0-51.0); LYMPH % 24.1 % (9.0-44.0); LYMPHOCYTE # 2.3 TH/MM3 (1.0-4.8); MEAN CELL VOLUME 100.3 FL (80.0-100.0); MEAN CORPUSCULAR HEMOGLOBIN 33.9 PG (27.0-34.0); MEAN CORPUSCULAR HGB CONC 33.8 % (32.0-36.0); NEUT % 50.4 % (16.0-70.0); PLATELET COUNT 89 TH/MM3 (150-450); RED BLOOD COUNT 3.42 MIL/MM3 (4.50-5.90); RED CELL DISTRIBUTION WIDTH 20.4 % (11.6-17.2); WHITE BLOOD COUNT 9.7 TH/MM3 (4.0-11.0)
[2017-08-28 15:49] LABS: HEMO FLAGS AUTO DIFF
[2017-08-28 15:58] LABS: APTT (PATIENT) 31.3 SEC (24.3-30.1); INTERNATIONAL NORMALIZED RATIO 1.7 RATIO; PROTHROMBIN TIME - PATIENT 18.8 SEC (9.8-11.6)
[2017-08-28 16:11] LABS: ANION GAP 5 MEQ/L (5-15); AST (GOT) 107 U/L (15-37); BICARBONATE 30.8 MEQ/L (21.0-32.0); BLOOD UREA NITROGEN 20 MG/DL (7-18); CHLORIDE 97 MEQ/L (98-107); GLOMERULAR FILTRATION RATE 80 ML/MIN (>89); POTASSIUM 3.3 MEQ/L (3.5-5.1); SODIUM (NA) 133 MEQ/L (136-145)
[2017-08-28 16:12] LABS: ALT (GPT) 41 U/L (12-78)
[2017-08-28 16:14] LABS: ALKALINE PHOSPHATASE 149 U/L (45-117)
--- NOTE | 2017-08-28 16:57 | HHI.GIFU ---
Subjective Remarks Worsening ascites, but states he feels better otherwise. Of note, he has a yeti cup and is drinking fluid frequently while i was in the room. Significant other reports that he does drink a lot of fluid. Instructed him and significant to have him limit his fluid intake with rationale. (Daya Reid) Objective Vitals I&O Vital Signs Date Time Temp Pulse Resp B/P (MAP) Pulse Ox O2 Delivery O2 Flow Rate FiO2 08/28/17 16:00 97.2 76 16 101/71 (81) 98 08/28/17 12:00 97.4 73 17 105/67 (80) 95 08/28/17 08:00 97.5 72 16 104/65 (78) 93 08/28/17 05:49 73 08/28/17 05:20 70 18 100/68 (79) 94 08/28/17 04:00 98.4 73 18 96/63 (74) 95 08/28/17 00:00 98.7 73 20 99/63 (75) 97 08/27/17 20:00 98.1 74 18 90/58 (69) 99 08/27/17 17:50 94 21 I/O 08/27/17 08/27/17 08/27/17 08/28/17 08/28/17 08/28/17 07:00 15:00 23:00 07:00 15:00 23:00 Intake Total 150 ml 600 ml 960 ml Output Total 400 ml Balance 150 ml 200 ml 960 ml Intake Oral 600 ml 960 ml IV Total 150 ml Output Urine Total 400 ml # Voids 4 3 # Bowel Movements 1 1 3 Laboratory Laboratory Tests Test 08/28/17 15:34 White Blood Count 9.7 Red Blood Count 3.42 Hemoglobin 11.6 Hematocrit 34.3 Mean Corpuscular Volume 100.3 Mean Corpuscular Hemoglobin 33.9 Mean Corpuscular Hemoglobin Concent 33.8 Red Cell Distribution Width 20.4 Platelet Count 89 Mean Platelet Volume 9.3 Neutrophils (%) (Auto) 50.4 Lymphocytes (%) (Auto) 24.1 Monocytes (%) (Auto) 21.0 Eosinophils (%) (Auto) 3.3 Basophils (%) (Auto) 1.2 Neutrophils # (Auto) 4.9 Lymphocytes # (Auto) 2.3 Monocytes # (Auto) 2.0 Eosinophils # (Auto) 0.3 Basophils # (Auto) 0.1 CBC Comment AUTO DIFF Prothrombin Time 18.8 Prothromb Time International Ratio 1.7 Activated Partial Thromboplast Time 31.3 Blood Urea Nitrogen 20 Creatinine 0.98 Random Glucose 144 Total Protein 6.4 Albumin 1.7 Calcium Level 7.8 Alkaline Phosphatase 149 Aspartate Amino Transf (AST/SGOT) 107 Alanine Aminotransferase (ALT/SGPT) 41 Total Bilirubin 6.0 Sodium Level 133 Potassium Level 3.3 Chloride Level 97 Carbon Dioxide Level 30.8 Anion Gap 5 Estimat Glomerular Filtration Rate 80 Ammonia 45 Date/Time Source Procedure Growth Status 08/23/17 19:55 Blood Peripheral Aerobic Blood Culture - Final NO GROWTH IN 5 DAYS Complete 08/23/17 19:55 Blood Peripheral Anaerobic Blood Culture - Final NO GROWTH IN 5 DAYS Complete 08/23/17 19:10 Fluid Peritoneal Fluid Gram Stain - Final Complete 08/23/17 19:10 Fluid Peritoneal Fluid Body Fluid Culture - Final NO GROWTH IN 72 HRS.--AEROBICALLY OR ... Complete Imaging Last Impressions Cyst Biopsy Asp-Paracentesis US 08/24/17 0600 Signed Impressions: Service Date/Time: Thursday, August 24, 2017 11:35 - CONCLUSION: Uncomplicated ultrasound guided paracentesis. Don Miranda MD Abdomen/Pelvis CT 08/23/17 1612 Signed Impressions: Service Date/Time: Wednesday, August 23, 2017 17:39 - CONCLUSION: Cirrhotic liver with portal hypertension and ascites. The abdominal distension is secondary to the large amount of ascites. Eliud Irby MD Physical Exam HEENT: Normocephalic; atraumatic; jaundice. CHEST: Resp. even/unlabored CARDIAC: RRR ABDOMEN: Distended with large amount of ascites, mild diffuse tenderness, bowel sounds are present in all four quadrants. EXTREMITIES: BLE edema. LLE erythematous, drsg d/i SKIN: Normal; no rash; jaundice. 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 (Daya Reid) Assessment and Plan Plan ASSESSMENT: - New onset ascites. 2 month hx of worsening abdominal distention and lower extremity swelling. US guided paracentesis (08/24/17)---> with removal of 4, 100cc of peritoneal fluid. Peritoneal WBC 120, RBC 641, Neutrophils 30. Peritoneal cx no growth 48 hours. Still with significant ascites, slightly worse. But noticed he was drinking frequently and significant other reports that he is taking a lot of fluids. D/W patient importance of limiting fluid intake. Lasix 40mg IV BID, Spironolactone 100mg po BID - Elevated LFTs/Liver cirrhosis, acute alcoholic hepatitis. Denies any known hx of liver cirrhosis. Past ETOH abuse, currently drinks 1 glass of wine per day mixed in fruit juice. CT scan abdomen and pelvis (08/23/17)----> Cirrhotic liver with portal hypertension and ascites. The abdominal distention is secondary to the large amount of ascites. HCV Ab (+) in 2009. Genotype/viral load pending. FATEMEH neg. AMA pending. ASMA neg. AFP 3.6. Alpha 1 antitrypsin 141. Ceruloplasmin pending. Ferritin 414, Iron saturation 55.4% DF is 49.560. MELD Score 20. LFTs improving slowly. Likely secondary to ETOH and likely HCV infection - Hepatic encephalopathy. Ammonia 87---> 60. He is a/o with this. Lactulose/ Xifaxan - HCV Ab (+) . Genotype pending. Viral load is 146. - GERD. Daily symptoms for which he takes Rolaids. EGD (08/26/17)---> Heber esophagitis, Portal gastropathy. Pathology with mucosal congestion in stomach antrum. - Heber esophagitis. Diflucan. - Decreased appetite/early satiety, EGD with heber esophagitis, portal gastropathy. - Anemia. 11.6/34.3. Denies any obvious GI blood loss. Never had egd/ colonoscopy. Father had colon cancer in his 60's. - Leukocytosis. Peritoneal fluid not consistent with SBP. Does have cellulitis ble. Bcx negative. peritoneal cx pending. - Thrombocytopenia, Coagulopathy, secondary to cirrhosis. No active bleeding. Plt 89,000 today. - Cellulitis BLE. per attending. PLAN: - 2 gram sodium diet - Add fluid restriction (pt is drinking large amounts of water - Strict I/O - Cont. PPI - Cont. Lasix 40mg IV BID - Cont. Spironolactone 100mg po BID - Cont. Thiamine/folate - Cont. Propranolol - Cont. Lactulose - Cont. Xifaxan - Cont. Pentoxifylline for any alcoholic hepatitis component - Await Genotype Ceruloplasmin - CBC, PT/INR in am - Supportive care - ? Consider repeat paracentesis prior to d/c if no improvement with fluid restriction - PT noted to be increasing I would hold off on discharge at this point until we see it stabilize or decline (Daya Reid) Physician Comments Patient seen and examined Agree with above Continue with current supportive care Monitor labs We will hold her ultrasound-guided large volume paracentesis (Jorge Luis Mcclain MD) Daya Reid Aug 28, 2017 16:57 Jorge Luis Mcclain MD Aug 28, 2017 23:02
[2017-08-28 17:25] LABS: PLATELET ESTIMATE SMEAR LOW (NORMAL); PLATELET MORPHOLOGY NORMAL (NORMAL)
[2017-08-28 17:26] LABS: SCAN/DIFF AUTO DIFF CONFIRMED
[2017-08-28] MEDS: ALBUMIN 25% INJ 100 ML IV SCH (23:25)
[2017-08-29] VITALS (8 sets, daily range): BP systolic 94–114; BP diastolic 59–73; PULSE 67–79; RESP 16–20; TEMP 97.1–99; O2SAT 91–95
[2017-08-29] MEDS: PENTOXIFYLLINE 400 MG CONTROLLED RELEASE TAB PO SCH ×3 (05:19→21:07)
[2017-08-29 06:54] LABS: AUTOMATED NEUTROPHIL # 4.4 TH/MM3 (1.8-7.7); BASOPHIL # 0.1 TH/MM3 (0-0.2); BASOPHIL % 0.8 % (0.0-2.0); EOSINOPHIL # 0.5 TH/MM3 (0-0.4); EOSINOPHIL % 5.5 % (0.0-4.0); HEMATOCRIT 35.3 % (39.0-51.0); LYMPH % 27.6 % (9.0-44.0); LYMPHOCYTE # 2.7 TH/MM3 (1.0-4.8); MEAN CELL VOLUME 99.9 FL (80.0-100.0); MEAN CORPUSCULAR HEMOGLOBIN 34.7 PG (27.0-34.0); MEAN CORPUSCULAR HGB CONC 34.7 % (32.0-36.0); MONO % 21.2 % (0.0-8.0); NEUT % 44.9 % (16.0-70.0); PLATELET COUNT 94 TH/MM3 (150-450); RED BLOOD COUNT 3.53 MIL/MM3 (4.50-5.90); RED CELL DISTRIBUTION WIDTH 20.3 % (11.6-17.2); WHITE BLOOD COUNT 9.7 TH/MM3 (4.0-11.0)
[2017-08-29 07:07] LABS: APTT (PATIENT) 35.6 SEC (24.3-30.1); INTERNATIONAL NORMALIZED RATIO 1.6 RATIO; PROTHROMBIN TIME - PATIENT 18.1 SEC (9.8-11.6)
[2017-08-29 07:19] LABS: ANION GAP 7 MEQ/L (5-15); BICARBONATE 28.6 MEQ/L (21.0-32.0); BLOOD UREA NITROGEN 22 MG/DL (7-18); CHLORIDE 97 MEQ/L (98-107); GLOMERULAR FILTRATION RATE 74 ML/MIN (>89); POTASSIUM 3.9 MEQ/L (3.5-5.1); SODIUM (NA) 133 MEQ/L (136-145)
[2017-08-29 07:20] LABS: AST (GOT) 106 U/L (15-37)
[2017-08-29 07:24] LABS: ALKALINE PHOSPHATASE 176 U/L (45-117); ALT (GPT) 43 U/L (12-78); TOTAL BILIRUBIN ADULT 7.4 MG/DL (0.2-1.0)
[2017-08-29 07:44] LABS: HEMO FLAGS AUTO DIFF
[2017-08-29 07:46] LABS: BANDS 1 % (0-6); CORRECTED NUCLEATED RBC 1 /100 WBC (0-0); EOSINOPHILS 7 % (0-4); METAMYELOCYTES 2 % (0-1); MYELOCYTES 1 % (0-0); NEUTROPHIL # MANUAL DIFF 6.3 TH/MM3 (1.8-7.7); PLATELET ESTIMATE SMEAR LOW (NORMAL); PLATELET MORPHOLOGY NORMAL (NORMAL); POLYS (SEG NEUTROPHILS) 61 % (16-70); SCAN/DIFF FINAL DIFF MANUAL; WBC DIFF SAMPLE 100
[2017-08-29] MEDS: THIAMINE HCL 100 MG TAB PO SCH (08:52)
[2017-08-29] MEDS: FOLIC ACID 1 MG TAB PO SCH (08:52)
[2017-08-29] MEDS: MULTIVITAMIN TAB PO SCH (08:52)
[2017-08-29] MEDS: PANTOPRAZOLE SOD 40 MG DELAYED RELEASE TAB PO SCH (08:53)
[2017-08-29] MEDS: FLUCONAZOLE 100 MG TAB PO SCH (08:53)
[2017-08-29] MEDS: SPIRONOLACTONE 100 MG TAB PO SCH ×2 (08:53→16:44)
[2017-08-29] MEDS: SODIUM CHLORIDE 0.9% FLUSH 10 ML FLUSH IV FLUSH SCH ×2 (08:54→21:06)
[2017-08-29] MEDS: FUROSEMIDE 40 MG/4 ML VIAL IV PUSH SCH ×2 (08:54→16:44)
[2017-08-29] MEDS: ALBUMIN 25% INJ 100 ML IV SCH ×2 (08:55→21:06)
[2017-08-29] MEDS: PROPRANOLOL HCL 20 MG TAB PO SCH ×2 (08:55→21:00)
[2017-08-29] MEDS: LACTULOSE SYRUP 20 GM/30 ML CUP PO SCH ×2 (08:55→21:00)
[2017-08-29] MEDS: RIFAXIMIN 550 MG TAB PO SCH ×2 (08:56→21:08)
[2017-08-29] MEDS: REMOVE OLD PATCH T-DERMAL SCH (08:56)
[2017-08-29] MEDS: DOCUSATE SODIUM 50 MG/SENNA 8.6 MG TAB PO SCH ×2 (08:56→21:00)
[2017-08-29] MEDS: NYSTATIN SUSP 500,000 U/5 ML CUP SWISH-SWAL SCH ×4 (08:56→21:06)
[2017-08-29] MEDS: NICOTINE 7 MG/24 HR PATCH T-DERMAL SCH (08:57)
--- NOTE | 2017-08-29 10:30 | HHI.GIFU ---
Subjective Remarks Resting in bed. States he is feeling better and is watching his fluid intake. Going down for paracentesis today. Has mild abdominal discomfort- pressure from ascites. (Daya Reid) Objective Vitals I&O Vital Signs Date Time Temp Pulse Resp B/P (MAP) Pulse Ox O2 Delivery O2 Flow Rate FiO2 08/29/17 08:00 97.7 70 18 105/67 (80) 94 08/29/17 04:57 97.1 67 16 113/73 (86) 93 08/29/17 00:32 97.2 75 16 100/73 (82) 92 08/28/17 20:00 96.3 74 16 105/67 (80) 92 08/28/17 17:58 98 21 08/28/17 16:00 97.2 76 16 101/71 (81) 98 08/28/17 12:00 97.4 73 17 105/67 (80) 95 I/O 08/28/17 08/28/17 08/28/17 08/29/17 08/29/17 08/29/17 07:00 15:00 23:00 07:00 15:00 23:00 Intake Total 960 ml 460 ml 100 ml Output Total 700 ml 900 ml Balance 960 ml -240 ml -800 ml Intake Oral 960 ml 360 ml IV Total 100 ml 100 ml Output Urine Total 700 ml 900 ml # Voids 3 # Bowel Movements 3 3 1 Laboratory Laboratory Tests Test 08/28/17 15:34 08/29/17 06:21 White Blood Count 9.7 9.7 Red Blood Count 3.42 3.53 Hemoglobin 11.6 12.3 Hematocrit 34.3 35.3 Mean Corpuscular Volume 100.3 99.9 Mean Corpuscular Hemoglobin 33.9 34.7 Mean Corpuscular Hemoglobin Concent 33.8 34.7 Red Cell Distribution Width 20.4 20.3 Platelet Count 89 94 Mean Platelet Volume 9.3 8.6 Neutrophils (%) (Auto) 50.4 44.9 Lymphocytes (%) (Auto) 24.1 27.6 Monocytes (%) (Auto) 21.0 21.2 Eosinophils (%) (Auto) 3.3 5.5 Basophils (%) (Auto) 1.2 0.8 Neutrophils # (Auto) 4.9 4.4 Lymphocytes # (Auto) 2.3 2.7 Monocytes # (Auto) 2.0 2.1 Eosinophils # (Auto) 0.3 0.5 Basophils # (Auto) 0.1 0.1 CBC Comment AUTO DIFF AUTO DIFF Differential Comment AUTO DIFF CONFIRMED FINAL DIFF MANUAL Platelet Estimate LOW LOW Platelet Morphology Comment NORMAL NORMAL Prothrombin Time 18.8 18.1 Prothromb Time International Ratio 1.7 1.6 Activated Partial Thromboplast Time 31.3 35.6 Blood Urea Nitrogen 20 22 Creatinine 0.98 1.04 Random Glucose 144 114 Total Protein 6.4 7.3 Albumin 1.7 2.3 Calcium Level 7.8 8.6 Alkaline Phosphatase 149 176 Aspartate Amino Transf (AST/SGOT) 107 106 Alanine Aminotransferase (ALT/SGPT) 41 43 Total Bilirubin 6.0 7.4 Sodium Level 133 133 Potassium Level 3.3 3.9 Chloride Level 97 97 Carbon Dioxide Level 30.8 28.6 Anion Gap 5 7 Estimat Glomerular Filtration Rate 80 74 Ammonia 45 32 Differential Total Cells Counted 100 Neutrophils % (Manual) 61 Band Neutrophils % 1 Lymphocytes % 15 Monocytes % 13 Eosinophils % 7 Neutrophils # (Manual) 6.3 Metamyelocytes 2 Myelocytes 1 Nucleated Red Blood Cells 1 Date/Time Source Procedure Growth Status 08/23/17 19:55 Blood Peripheral Aerobic Blood Culture - Final NO GROWTH IN 5 DAYS Complete 08/23/17 19:55 Blood Peripheral Anaerobic Blood Culture - Final NO GROWTH IN 5 DAYS Complete 08/23/17 19:10 Fluid Peritoneal Fluid Gram Stain - Final Complete 08/23/17 19:10 Fluid Peritoneal Fluid Body Fluid Culture - Final NO GROWTH IN 72 HRS.--AEROBICALLY OR ... Complete Imaging Last Impressions Cyst Biopsy Asp-Paracentesis US 08/24/17 0600 Signed Impressions: Service Date/Time: Thursday, August 24, 2017 11:35 - CONCLUSION: Uncomplicated ultrasound guided paracentesis. Don Miranda MD Abdomen/Pelvis CT 08/23/17 1612 Signed Impressions: Service Date/Time: Wednesday, August 23, 2017 17:39 - CONCLUSION: Cirrhotic liver with portal hypertension and ascites. The abdominal distension is secondary to the large amount of ascites. Eliud Irby MD Physical Exam HEENT: Normocephalic; atraumatic; jaundice. CHEST: Resp. even/unlabored CARDIAC: RRR ABDOMEN: Distended with large amount of ascites, mild diffuse tenderness, bowel sounds are present in all four quadrants. EXTREMITIES: BLE edema. LLE erythematous SKIN: Normal; no rash; jaundice. 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 (ReidDaya) Assessment and Plan Plan ASSESSMENT: - New onset ascites. 2 month hx of worsening abdominal distention and lower extremity swelling. US guided paracentesis (08/24/17)---> with removal of 4, 100cc of peritoneal fluid. Peritoneal WBC 120, RBC 641, Neutrophils 30. Peritoneal cx no growth 48 hours. Still with significant ascites, slightly worse. But noticed he was drinking frequently and significant other reports that he is taking a lot of fluids. D/W patient importance of limiting fluid intake. Lasix 40mg IV BID, Spironolactone 100mg po BID. Albumin q12h. Going for paracentesis today. D/W patient importance of low salt diet and fluid restriction. - Elevated LFTs/Liver cirrhosis, acute alcoholic hepatitis. Denies any known hx of liver cirrhosis. Past ETOH abuse, currently drinks 1 glass of wine per day mixed in fruit juice. CT scan abdomen and pelvis (08/23/17)----> Cirrhotic liver with portal hypertension and ascites. The abdominal distention is secondary to the large amount of ascites. HCV Ab (+) in 2009. Genotype/viral load pending. FATEMEH neg. AMA pending. ASMA neg. AFP 3.6. Alpha 1 antitrypsin 141. Ceruloplasmin 29. Ferritin 414, Iron saturation 55.4% DF is 49.560. MELD Score 20. LFTs with T. Bili 7.4, AST 106, ALT 43, ALk Phosph 176. Likely secondary to ETOH and likely HCV infection - Hepatic encephalopathy. Ammonia 87---> 60. He is a/o with this. Lactulose/ Xifaxan - HCV Ab (+) . Genotype pending. Viral load is 146. - GERD. Daily symptoms for which he takes Rolaids. EGD (08/26/17)---> Heber esophagitis, Portal gastropathy. Pathology with mucosal congestion in stomach antrum. - Heber esophagitis. Diflucan. - Decreased appetite/early satiety, EGD with heber esophagitis, portal gastropathy. - Anemia. 12.3/35.3. Denies any obvious GI blood loss. Never had egd/ colonoscopy. Father had colon cancer in his 60's. - Leukocytosis. Peritoneal fluid not consistent with SBP. Does have cellulitis ble. Bcx negative. peritoneal cx negative - Thrombocytopenia, Coagulopathy, secondary to cirrhosis. No active bleeding. Plt 94,000, INR 1.6. PT 18.1 - Cellulitis BLE. per attending. PLAN: - 2 gram sodium diet with fluid restriction - US guided paracentesis today - Cont. PPI - Cont. Albumin 25 gram IV q12h - Cont. Lasix 40mg IV BID - Cont. Spironolactone 100mg po BID - Cont. Thiamine/folate - Cont. Propranolol - Cont. Lactulose - Cont. Xifaxan - Cont. Pentoxifylline for any alcoholic hepatitis component - Await HCV Genotype - Monitor labs - Supportive care - Further recommendations to follow based on results of above - PT seen and examined by Dr. Mcclain and myself and this note is written on his behalf (Daya Reid) Physician Comments Patient seen and examined Agree with above Continue with current supportive care Monitor labs (Jorge Luis Mcclain MD) Daya Reid Aug 29, 2017 10:30 Jorge Luis Mcclain MD Aug 29, 2017 20:48
--- NOTE | 2017-08-29 11:20 | HHI.FPPN ---
Subjective Remarks Patient was seen and examined today. He is feeling "the same". The Roxicodone is helping with his general abdominal and low back pain. Ambulating to the bathroom without difficulty. He nausea, vomiting, worsening confusion, headache , shortness of breath, chest pain. Abdominal distention may be a little worse than yesterday. Per patient, GI MD saw patient yesterday and recommended that he stay for Saturday 4 more days for continued monitoring and repeat therapeutic paracentesis , likely today Objective Vitals Vital Signs Date Time Temp Pulse Resp B/P (MAP) Pulse Ox O2 Delivery O2 Flow Rate FiO2 08/29/17 08:00 97.7 70 18 105/67 (80) 94 08/29/17 04:57 97.1 67 16 113/73 (86) 93 08/29/17 00:32 97.2 75 16 100/73 (82) 92 08/28/17 20:00 96.3 74 16 105/67 (80) 92 08/28/17 17:58 98 21 08/28/17 16:00 97.2 76 16 101/71 (81) 98 08/28/17 12:00 97.4 73 17 105/67 (80) 95 I/O 08/28/17 08/28/17 08/28/17 08/29/17 08/29/17 08/29/17 07:00 15:00 23:00 07:00 15:00 23:00 Intake Total 960 ml 460 ml 100 ml Output Total 700 ml 900 ml Balance 960 ml -240 ml -800 ml Intake Oral 960 ml 360 ml IV Total 100 ml 100 ml Output Urine Total 700 ml 900 ml # Voids 3 # Bowel Movements 3 3 1 Result Diagram: 08/29/1762008/29/17620 Imaging Last Impressions Cyst Biopsy Asp-Paracentesis US 08/24/17 0600 Signed Impressions: Service Date/Time: Thursday, August 24, 2017 11:35 - CONCLUSION: Uncomplicated ultrasound guided paracentesis. Don Miranda MD Abdomen/Pelvis CT 08/23/17 1612 Signed Impressions: Service Date/Time: Wednesday, August 23, 2017 17:39 - CONCLUSION: Cirrhotic liver with portal hypertension and ascites. The abdominal distension is secondary to the large amount of ascites. Eliud Irby MD Objective Remarks GENERAL: Patient is a male, lying in bed, appears to be in pain. SKIN: Warm and dry. The skin is notable to be jaundiced with telangiectasias distributed diffusely about the trunk and arms. The skin over the lower extremities bilaterally have cobblestoning pattern suggestive of previous extensive swelling, but no edema present. There is a rip of approximately 2 inches on the left lateral leg which shows good granulation tissue and no signs of obvious infection. HEAD: Atraumatic. Normocephalic. EYES: EOMI. There is notable scleral icterus. No injection or drainage. ENT: No nasal bleeding or discharge. Mucous membranes pink and moist. NECK: Trachea midline. No JVD. CARDIOVASCULAR: Regular rate and rhythm. No murmurs, gallops, or rubs on auscultation. No chest wall tenderness. RESPIRATORY: No accessory muscle use. Clear to auscultation without wheezes or rhonchi. Breath sounds equal bilaterally. GASTROINTESTINAL: Abdomen markedly distended, slight worsening from previous exam. + Fluid wave. Bowel sounds are normal. The abdomen is still diffusely tender to palpation but improved. Hepatic and splenic margins not palpable due to distention. MUSCULOSKELETAL: Extremities without clubbing, cyanosis. No calf tenderness. Patient with anasarca to lower abdomen. NEUROLOGICAL: Awake and alert. No obvious cranial nerve deficits. Motor grossly within normal limits. Normal strength in the extremities. Normal speech. PSYCHIATRIC: Appropriate mood and affect; insight and judgment normal. Medications and IVs Inpatient Medications Acetaminophen (Tylenol) 650 mg Q4H PRN PO PAIN SCALE 1 TO 5, FEVER >101 Last administered on 08/27/17 09:51; Start 08/23/17 at 20:00 Albumin Human 100 ml @ 60 mls/hr Q12HR IV Last administered on 08/29/17 08: 55; Start 08/28/17 at 23:15 Bisacodyl (Dulcolax Supp) 10 mg DAILY PRN RECTAL SEVERE CONSITIPATION; Start 08/23/17 at 20:00 Fluconazole (Diflucan) 100 mg DAILY PO Last administered on 08/29/17 08:53; Start 08/28/17 at 09:00 Flumazenil (Romazicon Inj) 0.2 mg Q1M PRN IV PUSH SEE LABEL COMMENTS; Start at 20:00 Folic Acid (Folate) 1 mg DAILY PO Last administered on 08/29/17 08:52; Start 08/24/17 at 09:00 Furosemide (Lasix Inj) 40 mg BID@09,18 IV PUSH Last administered on 08/29/17 08:54; Start 08/24/17 at 09:00 Lactulose (Lactulose Liq) 30 ml BID PO Last administered on 08/27/17 09:51; Start 08/24/17 at 21:00 Levofloxacin/ Dextrose 150 ml @ 100 mls/hr Q24H IV Last administered on 20:24; Start 08/24/17 at 20:00; Stop 08/27/17 at 11:31; Status DC Lidocaine HCl (Xylocaine-Mpf 1% Inj) 10 ml ONCE ONCE INFIL Last administered on 08/23/17 19:21; Start 08/23/17 at 18:15; Stop 08/23/17 at 18:16; Status DC Lorazepam (Ativan Inj) 2 mg Q15M PRN IV PUSH CIWA > 20; Start 08/23/17 at 20: 00 Lorazepam (Ativan) 2 mg Q2H PRN PO CIWA 11-14; Start 08/23/17 at 20:00 Magnesium Hydroxide (Milk Of Magnesia Liq) 30 ml Q12H PRN PO Mild constipation ; Start 08/23/17 at 20:00 Miscellaneous Information ALL NURSING DEPARTME... UNSCH PRN .XX SEE LABEL COMMENTS; Start 08/26/17 at 11:57; Stop 08/27/17 at 11:56; Status DC Morphine Sulfate (Morphine Inj) 2 mg Q4H PRN IV Pain 6-10 Last administered on 08/27/17 04:55; Start 08/25/17 at 10:30; Stop 08/27/17 at 07:30; Status DC Multivitamins (Theragran) 1 tab DAILY PO Last administered on 08/29/17 08:52 ; Start 08/24/17 at 09:00 Naloxone HCl (Narcan Inj) 0.4 mg UNSCH PRN IV PUSH SEE LABEL COMMENTS; Start 08/23/17 at 20:00 Nicotine (Habitrol 7 Mg Patch.24 Hr) 1 patch DAILY T-DERMAL Last administered on 08/26/17 13:55; Start 08/26/17 at 11:45 Nystatin (Mycostatin Liq) 5 ml QID SWISH-SWAL Last administered on 08/27/17 22:47; Start 08/26/17 at 13:00 Ondansetron HCl (Zofran Inj) 4 mg Q6H PRN IVP NAUSEA OR VOMITING Last administered on 08/26/17 16:53; Start 08/23/17 at 20:00 Oxycodone HCl (Roxicodone) 5 mg Q4H PRN PO PAIN SCALE 6 TO 10 Last administered on 08/29/17 09:12; Start 08/27/17 at 14:45 Pantoprazole Sodium (Protonix) 40 mg DAILY PO Last administered on 08/29/17 08:53; Start 08/24/17 at 09:00 Pentoxifylline (TRENtal SR) 400 mg Q8HR PO Last administered on 08/29/17 05: 19; Start 08/24/17 at 22:00 Phytonadione (Vitamin K Inj) 10 mg ONCE ONCE SQ Last administered on 10:07; Start 08/24/17 at 09:15; Stop 08/24/17 at 09:17; Status DC Propranolol HCl (Inderal) 20 mg Q12HR PO Last administered on 08/28/17 19:40 ; Start 08/24/17 at 09:00 Rifaximin (Xifaxan) 550 mg BID PO Last administered on 08/29/17 08:56; Start 08/24/17 at 21:00 Senna/Docusate Sodium (Suni-Colace) 1 tab BID PO Last administered on 22:53; Start 08/23/17 at 21:00 Sennosides (Senokot) 17.2 mg Q12H PRN PO Moderate constipation; Start at 20:00 Sodium Chloride (NS Flush) 2 ml BID IV FLUSH Last administered on 08/29/17 08 :54; Start 08/23/17 at 21:00 Spironolactone (Aldactone) 100 mg BID@,18 PO Last administered on 08/29/17 08:53; Start 08/24/17 at 09:00 Thiamine HCl (Vitamin B1) 100 mg DAILY PO Last administered on 10/19/17at 08:52 ; Start 08/24/17 at 09:00 Urinary Catheter: No Vascular Central Line Catheter: No A/P Assessment and Plan 56-year-old male with history of hepatitis C who presents with a 3-month chronic worsening abdominal pain, shortness of breath, jaundice, fatigue. He also reports some intermittent confusion. Significant tense ascites on exam. His presentation is highly suggestive of worsening end-stage liver disease with noted elevation in INR, low platelets, abnormal liver enzymes. There is also significant concern for possible SBP based on leukocytosis, tachycardia (though latter resolved prior to intervention). He has never seen a brewing technician and does not have PCP. Admitted for inpatient workup and management of cirrhosis. SBP workup negative Discharge Planning Anticipate discharge after further workup and clearance per GI Problem List: (1) Cirrhosis of liver ICD Codes: K74.60 - Unspecified cirrhosis of liver Plan: Ammonia improved to normal INR 1.6 PT downtrending Continue pharmacologic treatment as below, appreciate GI recommendations and assistance in management * Furosemide 40 mg IV BID * Propranolol 20 mg po BID * Spironolactone 100 mg po BID * Protonix 40mg daily PO * Lactulose 30ml po BID * Albumin 25%, 25g q12h * Trental 400mg q8hr PO * Rifaximin 550mg BID PO GI following, appreciate recommendations, additional medications to include rifaximin and Trental added per GI. * EGD on 08/26 showed possible heber esophagitis and portal hypertensive gastropathy, no varices * hold discharge until PT stabilizes or declines per note on 08/28 * Paracentesis scheduled 08/29 Hospital Course: Patient with cirrhosis and tense ascites. Diagnostic paracentesis performed by ED physician, therapeutic paracentesis 4 L removed 08/24. He has allergies to sulfa and penicillin, stating he had severe vomiting with the latter medication. He received 1 dose of Levaquin 750 mg IV in ED. * Therapeutic paracentesis 08/24 * Levaquin x 3 days, discontinued due to negative work-up for SBP * Lactic acid initially 2.7-->1.4 * Blood culture NGTD * Peritoneal fluid: WBCs elevated to 120, peritoneal RBCs elevated to 641. Specific gravity, neutrophils, lymphocytes, monocytes within normal limits. * Gastroenterology consult placed as patient has presumptively advanced stage liver disease and will need long-term management and follow-up, also with esophageal varices. He had not had colonoscopy or EGD prior to admission * Furosemide, Propranolol, Spironolactone, Lactulose as above * Albumin low at 1.8, Pt given albumin 5% IV x1 on 08/24. * Daily weights * Monitor I's and O's * Pain control with Roxicodone, monitor for hypotension or sedation (2) Ascites ICD Codes: R18.8 - Other ascites Status: Acute Plan: As above (3) Anasarca ICD Codes: R60.1 - Generalized edema Status: Acute Plan: Pt with anasarca to lower abdomen on exam. Plan as above (4) Heber esophagitis ICD Codes: B37.81 - Candidal esophagitis Plan: Heber esophagitis noted during EGD on 08/26. * Started on Nystatin 5ml swish and swallow by GI * Fluconazole 200mg po once on 08/27, then 100mg po qD for 21 days (08/28- ) (5) Cellulitis of both lower extremities ICD Codes: L03.115 - Cellulitis of right lower limb; L03.116 - Cellulitis of left lower limb Status: Chronic Plan: Possible cellulitis though likely lower extremity symptoms are due to fluid excess. Patient with significant lower extremity swelling likely due to ascites. No suspicion for DVT on exam. The lesion noted on left lateral lower extremity is not immediately concerning for infection. * Nursing order for wound care with Xeroform and wrap with loose gauze. * Leg elevation * Diuretics as above * There is no discharge to culture at this time. * Only on Levaquin at this time, will expand antibiotics if indicated. (6) ETOH abuse ICD Codes: F10.10 - Alcohol abuse, uncomplicated Status: Acute Plan: Patient has a history of alcohol overuse. Last drink was reportedly today. Cirrhosis likely related to hepatitis versus alcohol. CIWA scores overnight 1,0,1. * Order EtOH level * Oral multivitamins * CIWA protocol, continue to monitor, escalate care as needed * Neuro checks as noted (7) Fluids/Electrolytes/Nutrition/Prophylaxis Status: Acute Plan: Fluids: PO intake, avoid additional IV fluids due to anasarca, fluid restrict 2L recommended Electrolytes: Monitor as needed Nutrition: heart-healthy diet with 2 g sodium restriction DVT Prophylaxis: Early ambulation. Patient has coagulopathy due to liver disease , and has significant LE edema. Will hold pharmacologic and mechanical prophylaxis GI Prophylaxis: Protonix 40 mg PO daily Pain mgmt: Tylenol for scale 1-5, oxycodone for 6-10 Problem Qualifiers (1) Ascites: Qualified Codes: R18.8 - Other ascites Yenny De La Rosa MD R2 Aug 29, 2017 11:20
--- NOTE | 2017-08-29 16:37 | PD.RAD ---
Post US Procedure Prog Note Pre Procedure Diagnosis: (1) Ascites Post Procedure Diagnosis: (1) Ascites Procedure Date: Aug 29, 2017 Supervising Radiologist: Eliud Andino Estimated blood loss: minimal Anesthesia: Local Plan of Activity Patient to Unit: ROPU Patient Condition: Fair See PACS Report for procedural detail/treatment Drainage Procedure Procedure 1 Imaging Guidance: Ultrasound Side: Right Procedure Type: Paracentesis Fluid Removal (CCs): 6200 Fluid Description: Clear, Yellow Plan albumin after procedure and return to floor. Eliud Andino MD Aug 29, 2017 16:37
--- NOTE | 2017-08-29 16:41 | RADRPT ---
EXAM DATE/TIME: 08/29/2017 14:47 [facility] COMPARISON: US GUIDED ABD PARACENTESIS, August 24, 2017, 11:35. INDICATIONS : Ascites. MEDICAL HISTORY : Cirrhosis. Gastroesophageal reflux disease. Glasses. Blurred vision. Confusion. Constipation. Back p ain. Alcohol use. SURGICAL HISTORY : Left hand surgery. ENCOUNTER: Subsequent ACUITY: 4 - 6 days PAIN SCORE: 3/10 LOCATION: Right lower quadrant FLUID: Total volume of 6200 cc of clear, yellow fluid was removed. Fluid was discarded. Paracentesis was therapeutic only. TECHNIQUE: 1. Ultrasound guidance for abdominal paracentesis. 2. Paracentesis. The risks, benefits, and alternatives to ultrasound guided paracentesis were explained to the patient in detail including the risk of bleeding and infection. Written and verbal informed consent was obt ained. With the patient on the ultrasound table, ultrasound imaging was used to select the most appropriate approach for paracentesis. Overlying skin was prepped and draped in the usual sterile fashion and wi th a local anesthetic, a dermatotomy was made with an 11 blade scalpel. A 6 Urdu [id number] ca theter was introduced into the peritoneal cavity and fluid was collected. The patient tolerated the procedure well and left the ultrasound suite in stable condition. CONCLUSION: Uncomplicated ultrasound guided paracentesis. Eliud Andino MD on August 29, 2017 at 16:35 Board Certified Radiologist. This report was verified electronically.
[2017-08-29] MEDS ORDERED: ALBUMIN 25% INJ 0 ML IV ONE (17:00)
[2017-08-29 17:52] LABS: HEPATITIS C RNA GENOTYPE 1a (NOT DETECTD)
[2017-08-29 23:51] LABS: MITOCHONDRIAL ABS LESS THAN 20.0 U (<=20.0)
[2017-08-30] VITALS (8 sets, daily range): BP systolic 95–111; BP diastolic 53–68; PULSE 66–76; RESP 16–24; TEMP 96.9–98.5; O2SAT 92–100
[2017-08-30] MEDS: PENTOXIFYLLINE 400 MG CONTROLLED RELEASE TAB PO SCH ×3 (05:24→21:16)
[2017-08-30 06:57] LABS: AUTOMATED NEUTROPHIL # 3.3 TH/MM3 (1.8-7.7); BASOPHIL # 0.1 TH/MM3 (0-0.2); BASOPHIL % 0.8 % (0.0-2.0); EOSINOPHIL # 0.3 TH/MM3 (0-0.4); EOSINOPHIL % 3.8 % (0.0-4.0); HEMATOCRIT 30.3 % (39.0-51.0); LYMPH % 30.9 % (9.0-44.0); LYMPHOCYTE # 2.3 TH/MM3 (1.0-4.8); MEAN CELL VOLUME 100.6 FL (80.0-100.0); MEAN CORPUSCULAR HEMOGLOBIN 34.9 PG (27.0-34.0); MEAN CORPUSCULAR HGB CONC 34.7 % (32.0-36.0); MONO % 21.2 % (0.0-8.0); NEUT % 43.3 % (16.0-70.0); PLATELET COUNT 52 TH/MM3 (150-450); RED BLOOD COUNT 3.01 MIL/MM3 (4.50-5.90); RED CELL DISTRIBUTION WIDTH 20.3 % (11.6-17.2); WHITE BLOOD COUNT 7.6 TH/MM3 (4.0-11.0)
[2017-08-30 07:04] LABS: INTERNATIONAL NORMALIZED RATIO 1.8 RATIO; PROTHROMBIN TIME - PATIENT 20.6 SEC (9.8-11.6)
[2017-08-30 07:08] LABS: HEMO FLAGS AUTO DIFF
[2017-08-30 07:35] LABS: ANION GAP 4 MEQ/L (5-15); AST (GOT) 76 U/L (15-37); BICARBONATE 32.6 MEQ/L (21.0-32.0); BLOOD UREA NITROGEN 18 MG/DL (7-18); CHLORIDE 97 MEQ/L (98-107); GLOMERULAR FILTRATION RATE 107 ML/MIN (>89); POTASSIUM 3.6 MEQ/L (3.5-5.1); SODIUM (NA) 134 MEQ/L (136-145)
[2017-08-30 07:37] LABS: ALT (GPT) 30 U/L (12-78)
[2017-08-30 07:39] LABS: ALKALINE PHOSPHATASE 103 U/L (45-117); TOTAL BILIRUBIN ADULT 7.2 MG/DL (0.2-1.0)
[2017-08-30] MEDS: ALBUMIN 25% INJ 100 ML IV SCH ×2 (08:24→21:13)
[2017-08-30] MEDS: SODIUM CHLORIDE 0.9% FLUSH 10 ML FLUSH IV FLUSH SCH ×2 (08:27→21:13)
[2017-08-30] MEDS: FOLIC ACID 1 MG TAB PO SCH (08:28)
[2017-08-30] MEDS: RIFAXIMIN 550 MG TAB PO SCH ×2 (08:28→21:15)
[2017-08-30] MEDS: FUROSEMIDE 40 MG/4 ML VIAL IV PUSH SCH ×2 (08:28→17:02)
[2017-08-30] MEDS: MULTIVITAMIN TAB PO SCH (08:28)
[2017-08-30] MEDS: FLUCONAZOLE 100 MG TAB PO SCH (08:29)
[2017-08-30] MEDS: PANTOPRAZOLE SOD 40 MG DELAYED RELEASE TAB PO SCH (08:29)
[2017-08-30] MEDS: THIAMINE HCL 100 MG TAB PO SCH (08:29)
[2017-08-30] MEDS: SPIRONOLACTONE 100 MG TAB PO SCH ×2 (08:29→17:01)
[2017-08-30] MEDS: NYSTATIN SUSP 500,000 U/5 ML CUP SWISH-SWAL SCH ×4 (08:30→21:15)
[2017-08-30] MEDS: PROPRANOLOL HCL 20 MG TAB PO SCH ×2 (08:34→21:00)
[2017-08-30] MEDS: LACTULOSE SYRUP 20 GM/30 ML CUP PO SCH ×2 (08:34→21:00)
[2017-08-30] MEDS: DOCUSATE SODIUM 50 MG/SENNA 8.6 MG TAB PO SCH ×2 (08:36→21:00)
[2017-08-30] MEDS: REMOVE OLD PATCH T-DERMAL SCH (08:37)
[2017-08-30] MEDS: NICOTINE 7 MG/24 HR PATCH T-DERMAL SCH (08:37)
[2017-08-30 08:46] LABS: SCAN/DIFF AUTO DIFF CONFIRMED
[2017-08-30 08:47] LABS: PLATELET ESTIMATE SMEAR LOW (NORMAL); PLATELET MORPHOLOGY NORMAL (NORMAL)
--- NOTE | 2017-08-30 10:50 | HHI.GIFU ---
Subjective Remarks Resting in bed. Had paracentesis yesterday. Feeling much better since having his ascites drained. Still with some mild abdominal discomfort, improved since paracentesis. Hoping to be able to go home in the next few days. (Daya Reid) Objective Vitals I&O Vital Signs Date Time Temp Pulse Resp B/P (MAP) Pulse Ox O2 Delivery O2 Flow Rate FiO2 08/30/17 08:00 98.5 73 18 108/63 (78) 92 08/30/17 04:00 96.9 73 18 103/57 (72) 95 08/30/17 00:00 98.3 76 18 100/68 (79) 95 08/29/17 20:00 97.7 75 18 97/59 (72) 95 08/29/17 16:07 98.5 72 18 100/65 (77) 94 08/29/17 15:56 99.0 70 16 94/61 (72) 91 08/29/17 14:52 98.6 79 20 114/67 (83) 94 08/29/17 11:18 97.2 71 20 97/61 (73) 92 I/O 08/29/17 08/29/17 08/29/17 08/30/17 08/30/17 08/30/17 07:00 15:00 23:00 07:00 15:00 23:00 Intake Total 100 ml 100 ml 490 ml 340 ml Output Total 900 ml 850 ml 625 ml Balance -800 ml 100 ml -360 ml -285 ml Intake Oral 240 ml 240 ml IV Total 100 ml 100 ml 0 ml 100 ml Albumin 250 ml Output Urine Total 900 ml 850 ml 625 ml # Voids 1 # Bowel Movements 1 1 1 Laboratory Laboratory Tests Test 08/30/17 06:36 White Blood Count 7.6 Red Blood Count 3.01 Hemoglobin 10.5 Hematocrit 30.3 Mean Corpuscular Volume 100.6 Mean Corpuscular Hemoglobin 34.9 Mean Corpuscular Hemoglobin Concent 34.7 Red Cell Distribution Width 20.3 Platelet Count 52 Mean Platelet Volume 8.7 Neutrophils (%) (Auto) 43.3 Lymphocytes (%) (Auto) 30.9 Monocytes (%) (Auto) 21.2 Eosinophils (%) (Auto) 3.8 Basophils (%) (Auto) 0.8 Neutrophils # (Auto) 3.3 Lymphocytes # (Auto) 2.3 Monocytes # (Auto) 1.6 Eosinophils # (Auto) 0.3 Basophils # (Auto) 0.1 CBC Comment AUTO DIFF Differential Comment AUTO DIFF CONFIRMED Platelet Estimate LOW Platelet Morphology Comment NORMAL Prothrombin Time 20.6 Prothromb Time International Ratio 1.8 Blood Urea Nitrogen 18 Creatinine 0.76 Random Glucose 89 Total Protein 5.5 Albumin 2.0 Calcium Level 8.0 Alkaline Phosphatase 103 Aspartate Amino Transf (AST/SGOT) 76 Alanine Aminotransferase (ALT/SGPT) 30 Total Bilirubin 7.2 Sodium Level 134 Potassium Level 3.6 Chloride Level 97 Carbon Dioxide Level 32.6 Anion Gap 4 Estimat Glomerular Filtration Rate 107 Ammonia 43 Date/Time Source Procedure Growth Status 08/23/17 19:55 Blood Peripheral Aerobic Blood Culture - Final NO GROWTH IN 5 DAYS Complete 08/23/17 19:55 Blood Peripheral Anaerobic Blood Culture - Final NO GROWTH IN 5 DAYS Complete 08/23/17 19:10 Fluid Peritoneal Fluid Gram Stain - Final Complete 08/23/17 19:10 Fluid Peritoneal Fluid Body Fluid Culture - Final NO GROWTH IN 72 HRS.--AEROBICALLY OR ... Complete Imaging Last Impressions Cyst Biopsy Asp-Paracentesis US 08/29/17 0000 Signed Impressions: Service Date/Time: August 14:47 - CONCLUSION: Uncomplicated ultrasound guided paracentesis. Eliud Andino MD Abdomen/Pelvis CT 08/23/17 1612 Signed Impressions: Service Date/Time: Wednesday, August 23, 2017 17:39 - CONCLUSION: Cirrhotic liver with portal hypertension and ascites. The abdominal distension is secondary to the large amount of ascites. Eliud Irby MD Physical Exam HEENT: Normocephalic; atraumatic; jaundice. CHEST: Resp. even/unlabored CARDIAC: RRR ABDOMEN: Soft, moderate to large amount of ascites, mild diffuse tenderness, bowel sounds are present in all four quadrants. EXTREMITIES: BLE edema. SKIN: Normal; no rash; jaundice. HYDROTHERAPIST: No focal deficits; alert and oriented times three. (Daya Reid) Assessment and Plan Plan ASSESSMENT: - New onset ascites. 2 month hx of worsening abdominal distention and lower extremity swelling. US guided paracentesis (08/24/17)---> with removal of 4, 100cc of peritoneal fluid. Peritoneal WBC 120, RBC 641, Neutrophils 30. Peritoneal cx no growth 48 hours. S/P Rpt. paracentesis (08/29/17)---> 6,200 (08/29). Lasix 40mg IV BID, Spironolactone 100mg po BID. Albumin q12h. D/W patient importance of low salt diet and fluid restriction. - Elevated LFTs/Liver cirrhosis, acute alcoholic hepatitis. Denies any known hx of liver cirrhosis. Past ETOH abuse, currently drinks 1 glass of wine per day mixed in fruit juice. CT scan abdomen and pelvis (08/23/17)----> Cirrhotic liver with portal hypertension and ascites. The abdominal distention is secondary to the large amount of ascites. HCV Ab (+) in 2009. Genotype/viral load pending. FATEMEH neg. AMA pending. ASMA neg. AFP 3.6. Alpha 1 antitrypsin 141. Ceruloplasmin 29. Ferritin 414, Iron saturation 55.4% DF is 49.560. MELD Score 20. Likely secondary to ETOH and likely HCV infection - Hepatic encephalopathy. Ammonia 87---> 60. He is a/o with this. Lactulose/ Xifaxan - HCV Ab (+) . Genotype 1A. Viral load is 146. - GERD. Daily symptoms for which he takes Rolaids. EGD (08/26/17)---> Heber esophagitis, Portal gastropathy. Pathology with mucosal congestion in stomach antrum. - Heber esophagitis. Diflucan/Nystatin. - Decreased appetite/early satiety, EGD with heber esophagitis, portal gastropathy. - Anemia. 10.5/30.3. Denies any obvious GI blood loss. Never had egd/ colonoscopy. Father had colon cancer in his 60's. - Leukocytosis. Peritoneal fluid not consistent with SBP. Does have cellulitis ble. Bcx negative. peritoneal cx negative - Thrombocytopenia, Coagulopathy, secondary to cirrhosis. No active bleeding. - Cellulitis BLE. per attending. PLAN: - 2 gram sodium diet with fluid restriction - Cont. PPI - Cont. Albumin 25 gram IV q12h - Cont. Lasix 40mg IV BID - Cont. Spironolactone 100mg po BID - Cont. Thiamine/folate - Cont. Propranolol - Cont. Lactulose - Cont. Xifaxan - Cont. Diflucan/Nystatin - Cont. Pentoxifylline for any alcoholic hepatitis component - Monitor labs - Supportive care - Further recommendations to follow based on results of above - PT seen and examined by Dr. Mcclain and myself and this note is written on his behalf (Daya Reid) Physician Comments Patient seen and examined Agree with above Continue with current supportive care Monitor labs Possible discharge in one to 2 days (Jorge Luis Mcclain MD) Daya Reid Aug 30, 2017 10:50 Jorge Luis Mcclain MD Aug 30, 2017 20:54
--- NOTE | 2017-08-30 12:15 | HHI.FPPN ---
Subjective Remarks Patient states that he is feeling good this morning. His only complaints that he feels shorts of breath at night, he also has his usual abdominal pain, and feels nauseous. He is on fluid restriction and is trying to adhere to that regimen. His fiance requests an ointment to put on his left ear sore for bleeding. No fever or chills, no chest pain. Objective Vitals Vital Signs Date Time Temp Pulse Resp B/P (MAP) Pulse Ox O2 Delivery O2 Flow Rate FiO2 08/30/17 12:00 97.6 70 16 100/58 (72) 100 08/30/17 10:09 18 08/30/17 08:00 98.5 73 18 108/63 (78) 92 08/30/17 04:00 96.9 73 18 103/57 (72) 95 08/30/17 00:00 98.3 76 18 100/68 (79) 95 08/29/17 20:00 97.7 75 18 97/59 (72) 95 08/29/17 16:07 98.5 72 18 100/65 (77) 94 08/29/17 15:56 99.0 70 16 94/61 (72) 91 08/29/17 14:52 98.6 79 20 114/67 (83) 94 I/O 08/29/17 08/29/17 08/29/17 08/30/17 08/30/17 08/30/17 07:00 15:00 23:00 07:00 15:00 23:00 Intake Total 100 ml 100 ml 490 ml 340 ml Output Total 900 ml 850 ml 625 ml Balance -800 ml 100 ml -360 ml -285 ml Intake Oral 240 ml 240 ml IV Total 100 ml 100 ml 0 ml 100 ml Albumin 250 ml Output Urine Total 900 ml 850 ml 625 ml # Voids 1 # Bowel Movements 1 1 1 Result Diagram: 08/30/1736 08/30/17635 Objective Remarks GENERAL: Patient is a male, lying in bed, appears to be in pain. SKIN: Warm and dry. The skin is notable to be jaundiced with telangiectasias distributed diffusely about the trunk and arms. The skin over the lower extremities bilaterally have cobblestoning pattern suggestive of previous extensive swelling, but no edema present. There is a rip of approximately 2 inches on the left lateral leg which shows good granulation tissue and no signs of obvious infection. HEAD: Atraumatic. Normocephalic. EYES: EOMI. There is notable scleral icterus. No injection or drainage. ENT: No nasal bleeding or discharge. Mucous membranes pink and moist. Well healing ulceration on left ear. NECK: Trachea midline. No JVD. CARDIOVASCULAR: Regular rate and rhythm. No murmurs, gallops, or rubs on auscultation. No chest wall tenderness. RESPIRATORY: No accessory muscle use. Clear to auscultation without wheezes or rhonchi. Breath sounds equal bilaterally. GASTROINTESTINAL: Abdomen markedly distended, significantly improved after yesterday's paracentesis. + Fluid wave. Bowel sounds are normal. The abdomen is still diffusely tender to palpation but improved. Hepatic and splenic margins not palpable due to distention. MUSCULOSKELETAL: Extremities without clubbing, cyanosis. No calf tenderness. Patient with anasarca to lower abdomen. NEUROLOGICAL: Awake and alert. No obvious cranial nerve deficits. Motor grossly within normal limits. Normal strength in the extremities. Normal speech. PSYCHIATRIC: Appropriate mood and affect; insight and judgment normal. A/P Assessment and Plan 56-year-old male with history of hepatitis C who presents with a 3-month chronic worsening abdominal pain, shortness of breath, jaundice, fatigue. He also reports some intermittent confusion. Significant tense ascites on exam. His presentation is highly suggestive of worsening end-stage liver disease with noted elevation in INR, low platelets, abnormal liver enzymes. There is also significant concern for possible SBP based on leukocytosis, tachycardia (though latter resolved prior to intervention). He has never seen a industrial production manager and does not have PCP. Admitted for inpatient workup and management of cirrhosis. SBP workup negative Discharge Planning Anticipate discharge after further workup and clearance per GI Problem List: (1) Cirrhosis of liver ICD Codes: K74.60 - Unspecified cirrhosis of liver Plan: Ammonia improved to normal INR 1.8 PT up to 20.6 from 18.1 yesterday Continue pharmacologic treatment as below, appreciate GI recommendations and assistance in management * Furosemide 40 mg IV BID * Propranolol 20 mg po BID * Spironolactone 100 mg po BID * Protonix 40mg daily PO * Lactulose 30ml po BID * Albumin 25%, 25g q12h * Trental 400mg q8hr PO * Rifaximin 550mg BID PO GI following, appreciate recommendations, additional medications to include rifaximin and Trental added per GI. * EGD on 08/26 showed possible ayala esophagitis and portal hypertensive gastropathy, no varices * hold discharge until PT stabilizes or declines per note on 08/28 * Paracentesis performed on 08/29 with 6200mls of clear,yellow fluid drained Hospital Course: Patient with cirrhosis and tense ascites. Diagnostic paracentesis performed by ED physician, therapeutic paracentesis 4 L removed 08/24. He has allergies to sulfa and penicillin, stating he had severe vomiting with the latter medication. He received 1 dose of Levaquin 750 mg IV in ED. * Therapeutic paracentesis 08/24 * Levaquin x 3 days, discontinued due to negative work-up for SBP * Lactic acid initially 2.7-->1.4 * Blood culture NGTD * Peritoneal fluid: WBCs elevated to 120, peritoneal RBCs elevated to 641. Specific gravity, neutrophils, lymphocytes, monocytes within normal limits. * Gastroenterology consult placed as patient has presumptively advanced stage liver disease and will need long-term management and follow-up, also with esophageal varices. He had not had colonoscopy or EGD prior to admission * Furosemide, Propranolol, Spironolactone, Lactulose as above * Albumin low at 1.8, Pt given albumin 5% IV x1 on 08/24. * Daily weights * Monitor I's and O's * Pain control with Roxicodone, monitor for hypotension or sedation (2) Ascites ICD Codes: R18.8 - Other ascites Status: Acute Plan: As above (3) Anasarca ICD Codes: R60.1 - Generalized edema Status: Acute Plan: Pt with anasarca to lower abdomen on exam. Plan as above (4) Ayala esophagitis ICD Codes: B37.81 - Candidal esophagitis Plan: Ayala esophagitis noted during EGD on 08/26. * Started on Nystatin 5ml swish and swallow by GI * Fluconazole 200mg po once on 08/27, then 100mg po qD for 21 days (08/28- ) (5) Cellulitis of both lower extremities ICD Codes: L03.115 - Cellulitis of right lower limb; L03.116 - Cellulitis of left lower limb Status: Chronic Plan: Possible cellulitis though likely lower extremity symptoms are due to fluid excess. Patient with significant lower extremity swelling likely due to ascites. No suspicion for DVT on exam. The lesion noted on left lateral lower extremity is not immediately concerning for infection. * Nursing order for wound care with Xeroform and wrap with loose gauze. * Leg elevation * Diuretics as above * There is no discharge to culture at this time. * Only on Levaquin at this time, will expand antibiotics if indicated. (6) ETOH abuse ICD Codes: F10.10 - Alcohol abuse, uncomplicated Status: Acute Plan: Patient has a history of alcohol overuse. Last drink was reportedly today. Cirrhosis likely related to hepatitis versus alcohol. CIWA scores overnight 1,0,1. * Order EtOH level * Oral multivitamins * CIWA protocol, continue to monitor, escalate care as needed * Neuro checks as noted (7) Fluids/Electrolytes/Nutrition/Prophylaxis Status: Acute Plan: Fluids: PO intake, avoid additional IV fluids due to anasarca, fluid restrict 2L recommended Electrolytes: Monitor as needed Nutrition: heart-healthy diet with 2 g sodium restriction DVT Prophylaxis: Early ambulation. Patient has coagulopathy due to liver disease , and has significant LE edema. Will hold pharmacologic and mechanical prophylaxis GI Prophylaxis: Protonix 40 mg PO daily Pain mgmt: Tylenol for scale 1-5, oxycodone for 6-10 Problem Qualifiers (1) Ascites: Qualified Codes: R18.8 - Other ascites Kimmie Viera MD R1 Aug 30, 2017 12:15
[2017-08-30] MEDS: NEOMYCIN/POLYMYXIN/BACITRACIN OINT 15 GM TUBE TOPICAL SCH (16:43)
[2017-08-31 04:00] VITALS: BP 102/57; PULSE 75; RESP 20; TEMP 97.9; O2SAT 97
[2017-08-31 04:43] LABS: AUTOMATED NEUTROPHIL # 2.9 TH/MM3 (1.8-7.7); BASOPHIL % 0.6 % (0.0-2.0); EOSINOPHIL # 0.3 TH/MM3 (0-0.4); EOSINOPHIL % 4.3 % (0.0-4.0); HEMATOCRIT 29.9 % (39.0-51.0); LYMPH % 33.3 % (9.0-44.0); LYMPHOCYTE # 2.4 TH/MM3 (1.0-4.8); MEAN CELL VOLUME 100.1 FL (80.0-100.0); MEAN CORPUSCULAR HEMOGLOBIN 34.5 PG (27.0-34.0); MEAN CORPUSCULAR HGB CONC 34.5 % (32.0-36.0); MONO % 21.5 % (0.0-8.0); NEUT % 40.3 % (16.0-70.0); PLATELET COUNT 47 TH/MM3 (150-450); RED BLOOD COUNT 2.99 MIL/MM3 (4.50-5.90); RED CELL DISTRIBUTION WIDTH 20.1 % (11.6-17.2); WHITE BLOOD COUNT 7.2 TH/MM3 (4.0-11.0)
[2017-08-31 04:48] LABS: HEMO FLAGS AUTO DIFF
[2017-08-31 05:10] LABS: INTERNATIONAL NORMALIZED RATIO 1.9 RATIO; PROTHROMBIN TIME - PATIENT 21.1 SEC (9.8-11.6)
[2017-08-31 05:15] LABS: ALT (GPT) 30 U/L (12-78); ANION GAP 6 MEQ/L (5-15); AST (GOT) 62 U/L (15-37); BICARBONATE 31.1 MEQ/L (21.0-32.0); BLOOD UREA NITROGEN 18 MG/DL (7-18); CHLORIDE 97 MEQ/L (98-107); GLOMERULAR FILTRATION RATE 110 ML/MIN (>89); POTASSIUM 3.4 MEQ/L (3.5-5.1); SODIUM (NA) 134 MEQ/L (136-145)
[2017-08-31 05:17] LABS: ALKALINE PHOSPHATASE 96 U/L (45-117); TOTAL BILIRUBIN ADULT 7.5 MG/DL (0.2-1.0)
[2017-08-31] MEDS: PENTOXIFYLLINE 400 MG CONTROLLED RELEASE TAB PO SCH ×3 (06:12→21:45)
[2017-08-31 07:08] LABS: SCAN/DIFF AUTO DIFF CONFIRMED
[2017-08-31 08:00] VITALS: BP 104/59; PULSE 68; RESP 20; TEMP 97.4; O2SAT 97
[2017-08-31] MEDS: ALBUMIN 25% INJ 100 ML IV SCH ×2 (08:52→21:46)
[2017-08-31] MEDS: SODIUM CHLORIDE 0.9% FLUSH 10 ML FLUSH IV FLUSH SCH ×2 (08:54→21:47)
[2017-08-31] MEDS: NYSTATIN SUSP 500,000 U/5 ML CUP SWISH-SWAL SCH ×4 (08:56→21:46)
[2017-08-31] MEDS: SPIRONOLACTONE 100 MG TAB PO SCH ×2 (08:56→17:55)
[2017-08-31] MEDS: THIAMINE HCL 100 MG TAB PO SCH (08:56)
[2017-08-31] MEDS: RIFAXIMIN 550 MG TAB PO SCH ×2 (08:56→21:47)
[2017-08-31] MEDS: NEOMYCIN/POLYMYXIN/BACITRACIN OINT 15 GM TUBE TOPICAL SCH (08:56)
[2017-08-31] MEDS: PANTOPRAZOLE SOD 40 MG DELAYED RELEASE TAB PO SCH (08:56)
[2017-08-31] MEDS: MULTIVITAMIN TAB PO SCH (08:56)
[2017-08-31] MEDS: FOLIC ACID 1 MG TAB PO SCH (08:56)
[2017-08-31] MEDS: FLUCONAZOLE 100 MG TAB PO SCH (08:56)
[2017-08-31] MEDS: FUROSEMIDE 40 MG/4 ML VIAL IV PUSH SCH ×2 (08:58→17:56)
[2017-08-31] MEDS: LACTULOSE SYRUP 20 GM/30 ML CUP PO SCH ×2 (09:00→21:00)
[2017-08-31] MEDS: PROPRANOLOL HCL 20 MG TAB PO SCH ×2 (09:00→21:00)
[2017-08-31] MEDS: NICOTINE 7 MG/24 HR PATCH T-DERMAL SCH (09:00)
[2017-08-31] MEDS: REMOVE OLD PATCH T-DERMAL SCH (09:00)
--- NOTE | 2017-08-31 09:03 | HHI.FPPN ---
Subjective Remarks Patient says that he is doing okay this morning. He is ready to leave and would like to know the plan. However, he's been refusing his lactulose medications. He states that he was having too many bowel movements a day so he stopped taking the medication. Right now he states that he is having pain in his abdomen. No fevers or chills, no chest pain, no shortness of breath, no nausea or vomiting, 2 bowel movements yesterday. Objective Vitals Vital Signs Date Time Temp Pulse Resp B/P (MAP) Pulse Ox O2 Delivery O2 Flow Rate FiO2 08/31/17 08:00 97.4 68 20 104/59 (74) 97 08/31/17 04:00 97.9 75 20 102/57 (72) 97 08/30/17 22:45 98.3 22 100 08/30/17 22:40 72 103/60 (74) 08/30/17 20:00 97.6 71 24 95/53 (67) 94 08/30/17 18:01 18 08/30/17 16:00 97.4 69 18 111/61 (78) 95 08/30/17 12:00 97.6 70 16 100/58 (72) 100 I/O 08/30/17 08/30/17 08/30/17 08/31/17 08/31/17 08/31/17 07:00 15:00 23:00 07:00 15:00 23:00 Intake Total 340 ml 840 ml 320 ml Output Total 625 ml 850 ml 1150 ml Balance -285 ml -10 ml -830 ml Intake Oral 240 ml 740 ml 320 ml IV Total 100 ml 100 ml Output Urine Total 625 ml 850 ml 1150 ml # Voids 1 # Bowel Movements 1 1 0 Result Diagram: 08/31/17 0411 08/31/17 0411 Imaging Last Impressions Cyst Biopsy Asp-Paracentesis US 08/29/17 0000 Signed Impressions: Service Date/Time: August 14:47 - CONCLUSION: Uncomplicated ultrasound guided paracentesis. Eliud Andino MD Abdomen/Pelvis CT 08/23/17 1612 Signed Impressions: Service Date/Time: Wednesday, August 23, 2017 17:39 - CONCLUSION: Cirrhotic liver with portal hypertension and ascites. The abdominal distension is secondary to the large amount of ascites. Eliud Irby MD Objective Remarks GENERAL: Patient is a male, lying in bed, in no acute distress. SKIN: Warm and dry. The skin is notable to be jaundiced with telangiectasias distributed diffusely about the trunk and arms. The skin over the lower extremities bilaterally have cobblestoning pattern suggestive of previous extensive swelling, but no edema present. There is a rip of approximately 2 inches on the left lateral leg which shows good granulation tissue and no signs of obvious infection. HEAD: Atraumatic. Normocephalic. EYES: EOMI. There is notable scleral icterus. No injection or drainage. ENT: No nasal bleeding or discharge. Mucous membranes pink and moist. Well healing ulceration on left ear. NECK: Trachea midline. No JVD. CARDIOVASCULAR: Regular rate and rhythm. No murmurs, gallops, or rubs on auscultation. No chest wall tenderness. RESPIRATORY: No accessory muscle use. Clear to auscultation without wheezes or rhonchi. Breath sounds equal bilaterally. GASTROINTESTINAL: Abdomen distended unchanged from yesterday, + Fluid wave. Bowel sounds are normal. The abdomen is still diffusely tender to palpation but improved. Hepatic and splenic margins not palpable due to distention. MUSCULOSKELETAL: Extremities without clubbing, cyanosis. No calf tenderness. Patient with anasarca to lower abdomen. NEUROLOGICAL: Awake and alert. No obvious cranial nerve deficits. Motor grossly within normal limits. Normal strength in the extremities. Normal speech. PSYCHIATRIC: Appropriate mood and affect; insight and judgment normal. Procedures Paracentesis on 08/24 and . EGD on 08/26 Medications and IVs Current Medications Medications (Trade) Dose Ordered Sig/Trevor Route Start Time Stop Time Status Last Admin (NS Flush) 2 ml UNSCH PRN IV FLUSH 08/23/17 20:00 (NS Flush) 2 ml BID IV FLUSH 08/23/17 21:00 08/30/17 21:13 (Zofran Inj) 4 mg Q6H PRN IVP 08/23/17 20:00 08/26/17 16:53 (Narcan Inj) 0.4 mg UNSCH PRN IV PUSH 08/23/17 20:00 (Suni-Colace) 1 tab BID PO 08/23/17 21:00 08/23/17 22:53 (Milk Of Magnesia Liq) 30 ml Q12H PRN PO 08/23/17 20:00 (Senokot) 17.2 mg Q12H PRN PO 08/23/17 20:00 (Dulcolax Supp) 10 mg DAILY PRN RECTAL 08/23/17 20:00 (Lactulose Liq) 30 ml DAILY PRN PO 08/23/17 20:00 (Romazicon Inj) 0.2 mg Q1M PRN IV PUSH 08/23/17 20:00 (Ativan) 1 mg Q4H PRN PO 08/23/17 20:00 08/26/17 16:53 (Ativan Inj) 1 mg Q4H PRN IV PUSH 08/23/17 20:00 (Ativan) 2 mg Q2H PRN PO 08/23/17 20:00 (Ativan Inj) 2 mg Q2H PRN IV PUSH 08/23/17 20:00 (Ativan Inj) 2 mg Q1H PRN IV PUSH 08/23/17 20:00 (Ativan Inj) 2 mg Q15M PRN IV PUSH 08/23/17 20:00 (Theragran) 1 tab DAILY PO 08/24/17 09:00 08/30/17 08:28 (Vitamin B1) 100 mg DAILY PO 08/24/17 09:00 08/30/17 08:29 (Folate) 1 mg DAILY PO 08/24/17 09:00 08/30/17 08:28 (Tylenol) 650 mg Q4H PRN PO 08/23/17 20:00 08/27/17 09:51 (Protonix) 40 mg DAILY PO 08/24/17 09:00 08/30/17 08:29 (Lasix Inj) 40 mg BID@18 IV PUSH 08/24/17 09:00 08/30/17 17:02 (Aldactone) 100 mg BID@,18 PO 08/24/17 09:00 08/30/17 17:01 (Inderal) 20 mg Q12HR PO 08/24/17 09:00 08/28/17 19:40 (Lactulose Liq) 30 ml BID PO 08/24/17 21:00 08/27/17 09:51 (Xifaxan) 550 mg BID PO 08/24/17 21:00 08/30/17 21:15 (TRENtal SR) 400 mg Q8HR PO 08/24/17 22:00 08/31/17 06:12 (Habitrol 7 Mg Patch.24 Hr) 1 patch DAILY T-DERMAL 08/26/17 11:45 08/26/17 13:55 Miscellaneous Information 1 DAILY T-DERMAL 08/27/17 09:00 08/27/17 09:00 (Mycostatin Liq) 5 ml QID SWISH-SWAL 08/26/17 13:00 08/30/17 21:15 (Roxicodone) 5 mg Q4H PRN PO 08/27/17 14:45 08/31/17 06:13 (Diflucan) 100 mg DAILY PO 08/28/17 09:00 08/30/17 08:29 Albumin Human 100 ml @ 60 mls/hr Q12HR IV 08/28/17 23:15 08/30/17 21:13 (Neosporin Oint) 1 applic DAILY TOPICAL 08/30/17 14:45 08/30/17 16:43 A/P Assessment and Plan 56-year-old male with history of hepatitis C who presents with a 3-month chronic worsening abdominal pain, shortness of breath, jaundice, fatigue. He also reports some intermittent confusion. Significant tense ascites on exam. His presentation is highly suggestive of worsening end-stage liver disease with noted elevation in INR, low platelets, abnormal liver enzymes. There is also significant concern for possible SBP based on leukocytosis, tachycardia (though latter resolved prior to intervention). He has never seen a jail guard and does not have PCP. Admitted for inpatient workup and management of cirrhosis. SBP workup negative Discharge Planning Anticipate discharge after further workup and clearance per GI Problem List: (1) Cirrhosis of liver ICD Codes: K74.60 - Unspecified cirrhosis of liver Status: Acute Plan: Ammonia has increased to 50. Patient refusing lactulose. Advised him to begin taking it again to improve lab values and overall mentation. INR 1.9 PT up to 21.1 from 20.6 yesterday Platelets have dropped to 47. Will monitor for bleeding. Continue pharmacologic treatment as below, appreciate GI recommendations and assistance in management * Furosemide 40 mg IV BID * Propranolol 20 mg po BID * Spironolactone 100 mg po BID * Protonix 40mg daily PO * Lactulose 30ml po BID * Albumin 25%, 25g q12h * Trental 400mg q8hr PO * Rifaximin 550mg BID PO GI following, appreciate recommendations, additional medications to include rifaximin and Trental added per GI. * EGD on 08/26 showed possible heber esophagitis and portal hypertensive gastropathy, no varices * hold discharge until PT stabilizes or declines per note on 08/28 * Paracentesis performed on 08/29 with 6200mls of clear,yellow fluid drained Hospital Course: Patient with cirrhosis and tense ascites. Diagnostic paracentesis performed by ED physician, therapeutic paracentesis 4 L removed 08/24. He has allergies to sulfa and penicillin, stating he had severe vomiting with the latter medication. He received 1 dose of Levaquin 750 mg IV in ED. * Therapeutic paracentesis 08/24 * Levaquin x 3 days, discontinued due to negative work-up for SBP * Lactic acid initially 2.7-->1.4 * Blood culture NGTD * Peritoneal fluid: WBCs elevated to 120, peritoneal RBCs elevated to 641. Specific gravity, neutrophils, lymphocytes, monocytes within normal limits. * Gastroenterology consult placed as patient has presumptively advanced stage liver disease and will need long-term management and follow-up, also with esophageal varices. He had not had colonoscopy or EGD prior to admission * Furosemide, Propranolol, Spironolactone, Lactulose as above * Albumin low at 1.8, Pt given albumin 5% IV x1 on 08/24. * Daily weights * Monitor I's and O's * Pain control with Roxicodone, monitor for hypotension or sedation (2) Ascites ICD Codes: R18.8 - Other ascites Status: Acute Plan: As above (3) Anasarca ICD Codes: R60.1 - Generalized edema Status: Acute Plan: Pt with anasarca to lower abdomen on exam. Plan as above (4) Heber esophagitis ICD Codes: B37.81 - Candidal esophagitis Plan: Heber esophagitis noted during EGD on 08/26. * Started on Nystatin 5ml swish and swallow by GI * Fluconazole 200mg po once on 08/27, then 100mg po qD for 21 days (08/28- ) (5) Cellulitis of both lower extremities ICD Codes: L03.115 - Cellulitis of right lower limb; L03.116 - Cellulitis of left lower limb Status: Chronic Plan: Possible cellulitis though likely lower extremity symptoms are due to fluid excess. Patient with significant lower extremity swelling likely due to ascites. No suspicion for DVT on exam. The lesion noted on left lateral lower extremity is not immediately concerning for infection. * Nursing order for wound care with Xeroform and wrap with loose gauze. * Leg elevation * Diuretics as above * There is no discharge to culture at this time. * Only on Levaquin at this time, will expand antibiotics if indicated. (6) ETOH abuse ICD Codes: F10.10 - Alcohol abuse, uncomplicated Status: Acute Plan: Patient has a history of alcohol overuse. Last drink was reportedly today. Cirrhosis likely related to hepatitis versus alcohol. Patient not in withdrawal anymore. * Order EtOH level * Oral multivitamins * CIWA protocol, continue to monitor, escalate care as needed * Discontinued on 08/31. * Neuro checks as noted (7) Fluids/Electrolytes/Nutrition/Prophylaxis Status: Acute Plan: Fluids: PO intake, avoid additional IV fluids due to anasarca, fluid restrict 2L recommended Electrolytes: Monitor as needed Nutrition: heart-healthy diet with 2 g sodium restriction DVT Prophylaxis: Early ambulation. Patient has coagulopathy due to liver disease , and has significant LE edema. Will hold pharmacologic and mechanical prophylaxis GI Prophylaxis: Protonix 40 mg PO daily Pain mgmt: Tylenol for scale 1-5, oxycodone for 6-10 Problem Qualifiers (1) Ascites: Qualified Codes: R18.8 - Other ascites Kimmie Viera MD R1 Aug 31, 2017 09:03
[2017-08-31] MEDS: DOCUSATE SODIUM 50 MG/SENNA 8.6 MG TAB PO SCH ×2 (09:04→21:47)
--- NOTE | 2017-08-31 09:29 | HHI.DCPOC ---
Discharge Care Plan Diagnosis: (1) Ascites (2) Anasarca (3) Ayala esophagitis (4) Cirrhosis of liver Goals to Promote Your Health * To prevent worsening of your condition and complications * To maintain your health at the optimal level Directions to Meet Your Goals Take your medications as prescribed Follow your dietary instruction Follow activity as directed Keep your appointments as scheduled Take your immunizations and boosters as scheduled If your symptoms worsen call your PCP, if no PCP go to Urgent Care Center or Emergency Room Smoking is Dangerous to Your Health. Avoid second hand smoke Call the 24-hour hour crisis hotline for domestic abuse at Yenny De La Rosa MD R2 Aug 31, 2017 09:29
[2017-08-31 12:00] VITALS: BP 101/66; PULSE 69; RESP 20; TEMP 97.1; O2SAT 97
--- NOTE | 2017-08-31 14:07 | HHI.GIFU ---
Subjective Remarks Resting in bed. States he is hoping to be discharged tomorrow. Watching his fluid intake. Abdominal distention has improved, but he is still having diffuse abdominal discomfort- pressure like pain. C/O pain meds do not last long. (Daya Reid) Objective Vitals I&O Vital Signs Date Time Temp Pulse Resp B/P (MAP) Pulse Ox O2 Delivery O2 Flow Rate FiO2 08/31/17 12:00 97.1 69 20 101/66 (78) 97 08/31/17 08:00 97.4 68 20 104/59 (74) 97 08/31/17 07:13 18 08/31/17 04:00 97.9 75 20 102/57 (72) 97 08/30/17 22:45 98.3 22 100 08/30/17 22:40 72 103/60 (74) 08/30/17 20:00 97.6 71 24 95/53 (67) 94 08/30/17 16:00 97.4 69 18 111/61 (78) 95 I/O 08/30/17 08/30/17 08/30/17 08/31/17 08/31/17 08/31/17 07:00 15:00 23:00 07:00 15:00 23:00 Intake Total 340 ml 840 ml 320 ml Output Total 625 ml 850 ml 1150 ml Balance -285 ml -10 ml -830 ml Intake Oral 240 ml 740 ml 320 ml IV Total 100 ml 100 ml Output Urine Total 625 ml 850 ml 1150 ml # Voids 1 # Bowel Movements 1 1 0 Laboratory Laboratory Tests Test 08/31/17 04:11 White Blood Count 7.2 Red Blood Count 2.99 Hemoglobin 10.3 Hematocrit 29.9 Mean Corpuscular Volume 100.1 Mean Corpuscular Hemoglobin 34.5 Mean Corpuscular Hemoglobin Concent 34.5 Red Cell Distribution Width 20.1 Platelet Count 47 Mean Platelet Volume 8.5 Neutrophils (%) (Auto) 40.3 Lymphocytes (%) (Auto) 33.3 Monocytes (%) (Auto) 21.5 Eosinophils (%) (Auto) 4.3 Basophils (%) (Auto) 0.6 Neutrophils # (Auto) 2.9 Lymphocytes # (Auto) 2.4 Monocytes # (Auto) 1.5 Eosinophils # (Auto) 0.3 Basophils # (Auto) 0.0 CBC Comment AUTO DIFF Differential Comment AUTO DIFF CONFIRMED Blood Smear Pathologist Review Prothrombin Time 21.1 Prothromb Time International Ratio 1.9 Activated Partial Thromboplast Time 42.0 Blood Urea Nitrogen 18 Creatinine 0.74 Random Glucose 86 Total Protein 5.5 Albumin 2.3 Calcium Level 8.0 Alkaline Phosphatase 96 Aspartate Amino Transf (AST/SGOT) 62 Alanine Aminotransferase (ALT/SGPT) 30 Total Bilirubin 7.5 Sodium Level 134 Potassium Level 3.4 Chloride Level 97 Carbon Dioxide Level 31.1 Anion Gap 6 Estimat Glomerular Filtration Rate 110 Ammonia 50 Date/Time Source Procedure Growth Status 08/23/17 19:55 Blood Peripheral Aerobic Blood Culture - Final NO GROWTH IN 5 DAYS Complete 08/23/17 19:55 Blood Peripheral Anaerobic Blood Culture - Final NO GROWTH IN 5 DAYS Complete 08/23/17 19:10 Fluid Peritoneal Fluid Gram Stain - Final Complete 08/23/17 19:10 Fluid Peritoneal Fluid Body Fluid Culture - Final NO GROWTH IN 72 HRS.--AEROBICALLY OR ... Complete Imaging Last Impressions Cyst Biopsy Asp-Paracentesis US 08/29/17 0000 Signed Impressions: Service Date/Time: August 14:47 - CONCLUSION: Uncomplicated ultrasound guided paracentesis. Eliud Andino MD Abdomen/Pelvis CT 08/23/17 1612 Signed Impressions: Service Date/Time: Wednesday, August 23, 2017 17:39 - CONCLUSION: Cirrhotic liver with portal hypertension and ascites. The abdominal distension is secondary to the large amount of ascites. Eliud Irby MD Physical Exam HEENT: Normocephalic; atraumatic; jaundice. CHEST: Resp. even/unlabored CARDIAC: RRR ABDOMEN: Soft, moderate to large amount of ascites, mild diffuse tenderness, bowel sounds are present in all four quadrants. EXTREMITIES: BLE edema. SKIN: Normal; no rash; jaundice. CARPENTER ASSEMBLER: No focal deficits; alert and oriented times three. (Daya Reid) Assessment and Plan Plan ASSESSMENT: - New onset ascites. 2 month hx of worsening abdominal distention and lower extremity swelling. US guided paracentesis (08/24/17)---> with removal of 4, 100cc of peritoneal fluid. Peritoneal WBC 120, RBC 641, Neutrophils 30. Peritoneal cx no growth 48 hours. S/P Rpt. paracentesis (08/29/17)---> 6,200 (08/29). Lasix 40mg IV BID, Spironolactone 100mg po BID. Albumin q12h. Low salt diet and fluid restriction. - Elevated LFTs/Liver cirrhosis, acute alcoholic hepatitis. Denies any known hx of liver cirrhosis. Past ETOH abuse, currently drinks 1 glass of wine per day mixed in fruit juice. CT scan abdomen and pelvis (08/23/17)----> Cirrhotic liver with portal hypertension and ascites. The abdominal distention is secondary to the large amount of ascites. HCV Ab (+) in 2009. Genotype/viral load pending. FATEMEH neg. AMA pending. ASMA neg. AFP 3.6. Alpha 1 antitrypsin 141. Ceruloplasmin 29. Ferritin 414, Iron saturation 55.4% DF is 49.560. MELD Score 20. Likely secondary to ETOH and likely HCV infection - Hepatic encephalopathy. Ammonia 87---> 50. He is a/o with this. Lactulose/ Xifaxan - HCV Ab (+) . Genotype 1A. Viral load is 146. - GERD. Daily symptoms for which he takes Rolaids. EGD (08/26/17)---> Heber esophagitis, Portal gastropathy. Pathology with mucosal congestion in stomach antrum. - Heber esophagitis. Diflucan/Nystatin. - Decreased appetite/early satiety, EGD with heber esophagitis, portal gastropathy. - Anemia. 10.5/30.3. Denies any obvious GI blood loss. Never had egd/ colonoscopy. Father had colon cancer in his 60's. - Leukocytosis. Peritoneal fluid not consistent with SBP. Does have cellulitis ble. Bcx negative. peritoneal cx negative - Thrombocytopenia, Coagulopathy, secondary to cirrhosis. No active bleeding. - Cellulitis BLE. per attending. PLAN: - 2 gram sodium diet with fluid restriction - Cont. PPI - Cont. Albumin 25 gram IV q12h - Cont. Lasix 40mg IV BID - Cont. Spironolactone 100mg po BID - Cont. Thiamine/folate - Cont. Propranolol - Cont. Lactulose - Cont. Xifaxan - Cont. Diflucan/Nystatin - Cont. Pentoxifylline for any alcoholic hepatitis component - Monitor labs - Supportive care - Possible d/c in am if patient remains stable. - Further recommendations to follow based on results of above - PT seen and examined by Dr. Mcclain and myself and this note is written on his behalf (Daya Reid) Physician Comments Patient seen and examined Agree with above Continue with current supportive care Monitor labs (Jorge Luis Mcclain MD) Daya Reid Aug 31, 2017 14:07 Jorge Lusi Mcclain MD Aug 31, 2017 18:17
[2017-08-31 16:00] VITALS: BP 105/58; PULSE 82; RESP 20; TEMP 98.6; O2SAT 95
[2017-08-31 20:00] VITALS: PULSE 71
[2017-08-31 20:49] VITALS: BP 106/59; PULSE 74; RESP 16; TEMP 98.4; O2SAT 94
[2017-09-01 00:17] VITALS: BP 102/58; PULSE 87; RESP 16; TEMP 98.6; O2SAT 93
[2017-09-01] MEDS: PENTOXIFYLLINE 400 MG CONTROLLED RELEASE TAB PO SCH ×2 (04:18→12:28)
[2017-09-01 04:21] VITALS: BP 104/60; PULSE 78; RESP 16; TEMP 97.7; O2SAT 95
[2017-09-01 08:00] VITALS: BP 107/66; PULSE 75; PULSE 77; RESP 17; TEMP 98; O2SAT 94
[2017-09-01 08:34] LABS: AUTOMATED NEUTROPHIL # 2.8 TH/MM3 (1.8-7.7); BASOPHIL % 0.6 % (0.0-2.0); EOSINOPHIL # 0.4 TH/MM3 (0-0.4); EOSINOPHIL % 5.1 % (0.0-4.0); LYMPH % 28.6 % (9.0-44.0); LYMPHOCYTE # 2.1 TH/MM3 (1.0-4.8); MEAN CELL VOLUME 100.1 FL (80.0-100.0); MEAN CORPUSCULAR HEMOGLOBIN 34.1 PG (27.0-34.0); MEAN CORPUSCULAR HGB CONC 34.1 % (32.0-36.0); MONO % 28.2 % (0.0-8.0); NEUT % 37.5 % (16.0-70.0); PLATELET COUNT 43 TH/MM3 (150-450); RED BLOOD COUNT 3.09 MIL/MM3 (4.50-5.90); RED CELL DISTRIBUTION WIDTH 20.7 % (11.6-17.2); WHITE BLOOD COUNT 7.4 TH/MM3 (4.0-11.0)
[2017-09-01 08:38] LABS: HEMO FLAGS AUTO DIFF
[2017-09-01 08:43] LABS: APTT (PATIENT) 39.9 SEC (24.3-30.1); INTERNATIONAL NORMALIZED RATIO 1.7 RATIO; PROTHROMBIN TIME - PATIENT 19.2 SEC (9.8-11.6)
[2017-09-01 08:55] LABS: ANION GAP 6 MEQ/L (5-15); AST (GOT) 60 U/L (15-37); BICARBONATE 33.3 MEQ/L (21.0-32.0); BLOOD UREA NITROGEN 15 MG/DL (7-18); CHLORIDE 97 MEQ/L (98-107); GLOMERULAR FILTRATION RATE 110 ML/MIN (>89); POTASSIUM 3.1 MEQ/L (3.5-5.1); SODIUM (NA) 136 MEQ/L (136-145)
[2017-09-01 08:56] LABS: ALT (GPT) 26 U/L (12-78)
[2017-09-01 08:59] LABS: ALKALINE PHOSPHATASE 95 U/L (45-117); TOTAL BILIRUBIN ADULT 6.8 MG/DL (0.2-1.0)
[2017-09-01] MEDS: PROPRANOLOL HCL 20 MG TAB PO SCH (09:00)
[2017-09-01] MEDS: REMOVE OLD PATCH T-DERMAL SCH (09:00)
[2017-09-01] MEDS: LACTULOSE SYRUP 20 GM/30 ML CUP PO SCH ×2 (09:00→11:28)
[2017-09-01] MEDS: MULTIVITAMIN TAB PO SCH (09:00)
[2017-09-01] MEDS: NICOTINE 7 MG/24 HR PATCH T-DERMAL SCH (09:00)
[2017-09-01 09:14] LABS: PLATELET ESTIMATE SMEAR LOW (NORMAL); PLATELET MORPHOLOGY NORMAL (NORMAL); SCAN/DIFF AUTO DIFF CONFIRMED
[2017-09-01] MEDS: ALBUMIN 25% INJ 100 ML IV SCH (11:04)
[2017-09-01] MEDS: FUROSEMIDE 40 MG/4 ML VIAL IV PUSH SCH (11:10)
[2017-09-01] MEDS: SPIRONOLACTONE 100 MG TAB PO SCH (11:16)
--- NOTE | 2017-09-01 11:17 | HHI.FPPN ---
Subjective Remarks Patient states that he is feeling fine this morning. He is ready to leave the hospital. He would like to leave today because he will not have a ride tomorrow. No chest pain, no shortness of breath, no fevers or chills, no nausea or vomiting. He states that he had 3 bowel movements yesterday although 1 is recorded. He also has still been refusing his lactulose. He states that he does not want to take it anymore because he defecated on himself while still on the bed a week ago. Objective Vitals Vital Signs Date Time Temp Pulse Resp B/P (MAP) Pulse Ox O2 Delivery O2 Flow Rate FiO2 09/01/17 08:00 98.0 77 17 107/66 (80) 94 09/01/17 04:21 97.7 78 16 104/60 (75) 95 09/01/17 00:17 98.6 87 16 102/58 (73) 93 08/31/17 20:49 98.4 74 16 106/59 (75) 94 08/31/17 20:00 71 08/31/17 16:00 98.6 82 20 105/58 (74) 95 08/31/17 15:17 18 08/31/17 12:00 97.1 69 20 101/66 (78) 97 I/O 08/31/17 08/31/17 08/31/17 09/01/17 09/01/17 09/01/17 07:00 15:00 23:00 07:00 15:00 23:00 Intake Total 320 ml 650 ml 100 ml Output Total 1150 ml 650 ml Balance -830 ml 650 ml -550 ml Intake Oral 320 ml 650 ml IV Total 100 ml Output Urine Total 1150 ml 650 ml # Voids 4 # Bowel Movements 0 0 Result Diagram: 09/01/17 0759 09/01/17 0759 Objective Remarks GENERAL: Patient is a male, lying in bed, in no acute distress. SKIN: Warm and dry. The skin is notable to be jaundiced with telangiectasias distributed diffusely about the trunk and arms. The skin over the lower extremities bilaterally have cobblestoning pattern suggestive of previous extensive swelling, but no edema present. There is a rip of approximately 2 inches on the left lateral leg which shows good granulation tissue and no signs of obvious infection. HEAD: Atraumatic. Normocephalic. EYES: EOMI. There is notable scleral icterus. No injection or drainage. ENT: No nasal bleeding or discharge. Mucous membranes pink and moist. Left ear bandaged. NECK: Trachea midline. No JVD. CARDIOVASCULAR: Regular rate and rhythm. No murmurs, gallops, or rubs on auscultation. No chest wall tenderness. RESPIRATORY: No accessory muscle use. Clear to auscultation without wheezes or rhonchi. Breath sounds equal bilaterally. GASTROINTESTINAL: Abdomen more distended from yesterday, + Fluid wave. Bowel sounds are normal. The abdomen is still diffusely tender to palpation but improved. Hepatic and splenic margins not palpable due to distention. MUSCULOSKELETAL: Extremities without clubbing, cyanosis. No calf tenderness. Patient with anasarca to lower abdomen. NEUROLOGICAL: Awake and alert. No obvious cranial nerve deficits. Motor grossly within normal limits. Normal strength in the extremities. Normal speech. PSYCHIATRIC: Appropriate mood and affect; insight and judgment normal. Procedures Paracentesis on 08/24 and . EGD on 08/26 A/P Assessment and Plan 56-year-old male with history of hepatitis C who presents with a 3-month chronic worsening abdominal pain, shortness of breath, jaundice, fatigue. He also reports some intermittent confusion. Significant tense ascites on exam. His presentation is highly suggestive of worsening end-stage liver disease with noted elevation in INR, low platelets, abnormal liver enzymes. There is also significant concern for possible SBP based on leukocytosis, tachycardia (though latter resolved prior to intervention). He has never seen a acetylene torch burner and does not have PCP. Admitted for inpatient workup and management of cirrhosis. SBP workup negative Discharge Planning Home today, cleared by GI Problem List: (1) Cirrhosis of liver ICD Codes: K74.60 - Unspecified cirrhosis of liver Status: Acute Plan: Ammonia has increased to 52. Patient refusing lactulose. Advised him to begin taking it again to improve lab values and overall mentation. INR 1.9 PT down to 19.2 from 21.1 yesterday Platelets have dropped to 43. Will monitor for bleeding. Continue pharmacologic treatment as below, appreciate GI recommendations and assistance in management * Furosemide 40 mg IV BID * Propranolol 20 mg po BID * Spironolactone 100 mg po BID * Protonix 40mg daily PO * Lactulose 30ml po BID * Albumin 25%, 25g q12h * Trental 400mg q8hr PO * Rifaximin 550mg BID PO GI following, appreciate recommendations, additional medications to include rifaximin and Trental added per GI. * EGD on 08/26 showed possible ayala esophagitis and portal hypertensive gastropathy, no varices * hold discharge until PT stabilizes or declines per note on 08/28 * Paracentesis performed on 08/29 with 6200mls of clear,yellow fluid drained Hospital Course: Patient with cirrhosis and tense ascites. Diagnostic paracentesis performed by ED physician, therapeutic paracentesis 4 L removed 08/24. He has allergies to sulfa and penicillin, stating he had severe vomiting with the latter medication. He received 1 dose of Levaquin 750 mg IV in ED. * Therapeutic paracentesis 08/24 * Levaquin x 3 days, discontinued due to negative work-up for SBP * Lactic acid initially 2.7-->1.4 * Blood culture NGTD * Peritoneal fluid: WBCs elevated to 120, peritoneal RBCs elevated to 641. Specific gravity, neutrophils, lymphocytes, monocytes within normal limits. * Gastroenterology consult placed as patient has presumptively advanced stage liver disease and will need long-term management and follow-up, also with esophageal varices. He had not had colonoscopy or EGD prior to admission * Furosemide, Propranolol, Spironolactone, Lactulose as above * Albumin low at 1.8, Pt given albumin 5% IV x1 on 08/24. * Daily weights * Monitor I's and O's * Pain control with Roxicodone, monitor for hypotension or sedation (2) Ascites ICD Codes: R18.8 - Other ascites Status: Acute Plan: As above (3) Anasarca ICD Codes: R60.1 - Generalized edema Status: Acute Plan: Pt with anasarca to lower abdomen on exam. Plan as above (4) Ayala esophagitis ICD Codes: B37.81 - Candidal esophagitis Plan: Ayala esophagitis noted during EGD on 08/26. * Started on Nystatin 5ml swish and swallow by GI * Fluconazole 200mg po once on 08/27, then 100mg po qD for 21 days (08/28- ) (5) Cellulitis of both lower extremities ICD Codes: L03.115 - Cellulitis of right lower limb; L03.116 - Cellulitis of left lower limb Status: Chronic Plan: Possible cellulitis though likely lower extremity symptoms are due to fluid excess. Patient with significant lower extremity swelling likely due to ascites. No suspicion for DVT on exam. The lesion noted on left lateral lower extremity is not immediately concerning for infection. * Nursing order for wound care with Xeroform and wrap with loose gauze. * Leg elevation * Diuretics as above * There is no discharge to culture at this time. * Only on Levaquin at this time, will expand antibiotics if indicated. (6) ETOH abuse ICD Codes: F10.10 - Alcohol abuse, uncomplicated Status: Acute Plan: Patient has a history of alcohol overuse. Last drink was reportedly today. Cirrhosis likely related to hepatitis versus alcohol. Patient not in withdrawal anymore. * Order EtOH level * Oral multivitamins * CIWA protocol, continue to monitor, escalate care as needed * Discontinued on 08/31. * Neuro checks as noted (7) Fluids/Electrolytes/Nutrition/Prophylaxis Status: Acute Plan: Fluids: PO intake, avoid additional IV fluids due to anasarca, fluid restrict 2L recommended Electrolytes: Monitor as needed Nutrition: heart-healthy diet with 2 g sodium restriction DVT Prophylaxis: Early ambulation. Patient has coagulopathy due to liver disease , and has significant LE edema. Will hold pharmacologic and mechanical prophylaxis GI Prophylaxis: Protonix 40 mg PO daily Pain mgmt: Tylenol for scale 1-5, oxycodone for 6-10 Problem Qualifiers (1) Cirrhosis of liver: Qualified Codes: K74.60 - Unspecified cirrhosis of liver (2) Ascites: Qualified Codes: R18.8 - Other ascites Kimmie Viera MD R1 Sep 01, 2017 11:17
[2017-09-01] MEDS: FOLIC ACID 1 MG TAB PO SCH (11:18)
[2017-09-01] MEDS: DOCUSATE SODIUM 50 MG/SENNA 8.6 MG TAB PO SCH (11:19)
[2017-09-01] MEDS: PANTOPRAZOLE SOD 40 MG DELAYED RELEASE TAB PO SCH (11:19)
[2017-09-01] MEDS: THIAMINE HCL 100 MG TAB PO SCH (11:19)
[2017-09-01] MEDS: FLUCONAZOLE 100 MG TAB PO SCH (11:20)
[2017-09-01] MEDS: RIFAXIMIN 550 MG TAB PO SCH (11:20)
[2017-09-01] MEDS ORDERED: POTASSIUM CHLORIDE 10 MEQ CONTROLLED RELEASE TAB PO ONE (11:30)
[2017-09-01 12:00] VITALS: BP 110/64; PULSE 79; RESP 17; TEMP 96.5; O2SAT 96
[2017-09-01] MEDS: NYSTATIN SUSP 500,000 U/5 ML CUP SWISH-SWAL SCH (12:22)
[2017-09-01] MEDS: NEOMYCIN/POLYMYXIN/BACITRACIN OINT 15 GM TUBE TOPICAL SCH (12:25)
--- NOTE | 2017-09-01 12:42 | HHI.GIFU ---
Subjective Remarks Lying in bed, in no apparent distress. Continues to have mild diffuse abdominal pain. Tolerating diet. No nausea or vomiting. (Ainsley Han) Objective Vitals I&O Vital Signs Date Time Temp Pulse Resp B/P (MAP) Pulse Ox O2 Delivery O2 Flow Rate FiO2 09/01/17 09:07 20 09/01/17 08:00 98.0 77 17 107/66 (80) 94 09/01/17 04:21 97.7 78 16 104/60 (75) 95 09/01/17 00:17 98.6 87 16 102/58 (73) 93 08/31/17 20:49 98.4 74 16 106/59 (75) 94 08/31/17 20:00 71 08/31/17 16:00 98.6 82 20 105/58 (74) 95 I/O 08/31/17 08/31/17 08/31/17 09/01/17 09/01/17 09/01/17 07:00 15:00 23:00 07:00 15:00 23:00 Intake Total 320 ml 650 ml 100 ml Output Total 1150 ml 650 ml Balance -830 ml 650 ml -550 ml Intake Oral 320 ml 650 ml IV Total 100 ml Output Urine Total 1150 ml 650 ml # Voids 4 # Bowel Movements 0 0 Laboratory Laboratory Tests Test 09/01/17 07:59 White Blood Count 7.4 Red Blood Count 3.09 Hemoglobin 10.6 Hematocrit 31.0 Mean Corpuscular Volume 100.1 Mean Corpuscular Hemoglobin 34.1 Mean Corpuscular Hemoglobin Concent 34.1 Red Cell Distribution Width 20.7 Platelet Count 43 Mean Platelet Volume 8.6 Neutrophils (%) (Auto) 37.5 Lymphocytes (%) (Auto) 28.6 Monocytes (%) (Auto) 28.2 Eosinophils (%) (Auto) 5.1 Basophils (%) (Auto) 0.6 Neutrophils # (Auto) 2.8 Lymphocytes # (Auto) 2.1 Monocytes # (Auto) 2.1 Eosinophils # (Auto) 0.4 Basophils # (Auto) 0.0 CBC Comment AUTO DIFF Differential Comment AUTO DIFF CONFIRMED Platelet Estimate LOW Platelet Morphology Comment NORMAL Red Cell Morphology Comment Prothrombin Time 19.2 Prothromb Time International Ratio 1.7 Activated Partial Thromboplast Time 39.9 Blood Urea Nitrogen 15 Creatinine 0.74 Random Glucose 127 Total Protein 5.9 Albumin 2.7 Calcium Level 8.3 Alkaline Phosphatase 95 Aspartate Amino Transf (AST/SGOT) 60 Alanine Aminotransferase (ALT/SGPT) 26 Total Bilirubin 6.8 Sodium Level 136 Potassium Level 3.1 Chloride Level 97 Carbon Dioxide Level 33.3 Anion Gap 6 Estimat Glomerular Filtration Rate 110 Ammonia 52 Date/Time Source Procedure Growth Status 08/23/17 19:55 Blood Peripheral Aerobic Blood Culture - Final NO GROWTH IN 5 DAYS Complete 08/23/17 19:55 Blood Peripheral Anaerobic Blood Culture - Final NO GROWTH IN 5 DAYS Complete 08/23/17 19:10 Fluid Peritoneal Fluid Gram Stain - Final Complete 08/23/17 19:10 Fluid Peritoneal Fluid Body Fluid Culture - Final NO GROWTH IN 72 HRS.--AEROBICALLY OR ... Complete Imaging Last Impressions Cyst Biopsy Asp-Paracentesis US 08/29/17 0000 Signed Impressions: Service Date/Time: August 14:47 - CONCLUSION: Uncomplicated ultrasound guided paracentesis. Eliud Andino MD Abdomen/Pelvis CT 08/23/17 1612 Signed Impressions: Service Date/Time: Wednesday, August 23, 2017 17:39 - CONCLUSION: Cirrhotic liver with portal hypertension and ascites. The abdominal distension is secondary to the large amount of ascites. Eliud Irby MD Physical Exam HEENT: Normocephalic; atraumatic; jaundice. CHEST: Resp. even/unlabored CARDIAC: RRR ABDOMEN: Soft, moderate to large amount of ascites, mild diffuse tenderness, bowel sounds are present in all four quadrants. EXTREMITIES: BLE edema. SKIN: Normal; no rash; jaundice. AIRCRAFT REFUELER: No focal deficits; alert and oriented times three. (Ainsley Han) Assessment and Plan Plan ASSESSMENT: - New onset ascites. 2 month hx of worsening abdominal distention and lower extremity swelling. US guided paracentesis (08/24/17)---> with removal of 4, 100cc of peritoneal fluid. Peritoneal WBC 120, RBC 641, Neutrophils 30. Peritoneal cx no growth 48 hours. S/P Rpt. paracentesis (08/29/17)---> 6,200 (08/29). Lasix 40mg IV BID, Spironolactone 100mg po BID. Albumin q12h. Low salt diet and fluid restriction. - Elevated LFTs/Liver cirrhosis, acute alcoholic hepatitis. Denies any known hx of liver cirrhosis. Past ETOH abuse, currently drinks 1 glass of wine per day mixed in fruit juice. CT scan abdomen and pelvis (08/23/17)----> Cirrhotic liver with portal hypertension and ascites. The abdominal distention is secondary to the large amount of ascites. HCV Ab (+) in 2009. Genotype/viral load pending. FATEMEH neg. AMA pending. ASMA neg. AFP 3.6. Alpha 1 antitrypsin 141. Ceruloplasmin 29. Ferritin 414, Iron saturation 55.4% DF is 49.560. MELD Score 20. Likely secondary to ETOH and likely HCV infection - Hepatic encephalopathy. Ammonia 87---> 50. Ammonia 52 today. He is a/o with this. Lactulose/Xifaxan - HCV Ab (+) . Genotype 1A. Viral load is 146. - GERD. Daily symptoms for which he takes Rolaids. EGD (08/26/17)---> Heber esophagitis, Portal gastropathy. Pathology with mucosal congestion in stomach antrum. - Heber esophagitis. Diflucan/Nystatin. - Decreased appetite/early satiety, EGD with heber esophagitis, portal gastropathy. - Anemia. . Denies any obvious GI blood loss. Never had egd/ colonoscopy. Father had colon cancer in his 60's. - Leukocytosis. Peritoneal fluid not consistent with SBP. Does have cellulitis ble. Bcx negative. peritoneal cx negative - Thrombocytopenia, Coagulopathy, secondary to cirrhosis. No active bleeding. - Cellulitis BLE. per attending. PLAN: - Okay to discharge home from GI standpoint - Followup with GI as outpatient Patient seen and examined by Dr. Mcclain and myself and this note is written on his behalf (Ainsley Han) Physician Comments Patient seen and examined Agree with above Continue with current supportive care Monitor labs Follow-up with GI in 2 weeks CBC with a CMP prior office visit (Jorge Luis Mcclain MD) Ainsley Han Sep 01, 2017 12:42 Jorge Luis Mcclain MD Sep 01, 2017 14:11
[2017-09-01] MEDS ORDERED: FURO1TAB60 PO (13:24)
[2017-09-01] MEDS ORDERED: Lactulose Liq PO (13:24)
[2017-09-01] MEDS ORDERED: PENT400T PO (13:24)
[2017-09-01] MEDS ORDERED: ALDA100T PO (13:24)
[2017-09-01] MEDS ORDERED: PANT40TA3 PO (13:24)
[2017-09-01] MEDS ORDERED: NYST1000 SWISH-SWAL (13:24)
[2017-09-01] MEDS ORDERED: FOLI1TAB6 PO (13:24)
[2017-09-01] MEDS ORDERED: XIFA550T4 PO (13:24)
[2017-09-01] MEDS ORDERED: PROP20TA3 PO (13:24)
[2017-09-01] MEDS ORDERED: POTA-163 PO (13:26)
--- NOTE | 2017-09-01 13:37 | HHI.DS ---
Discharge Summary Admission Date Aug 23, 2017 at 19:29 Admitting Diagnosis ascites (1) Cirrhosis of liver Plan: Ammonia has increased to 52. Patient refusing lactulose. Advised him to begin taking it again to improve lab values and overall mentation. INR 1.9 PT down to 19.2 from 21.1 yesterday Platelets have dropped to 43. Will monitor for bleeding. Continue pharmacologic treatment as below, appreciate GI recommendations and assistance in management * Furosemide 40 mg IV BID * Propranolol 20 mg po BID * Spironolactone 100 mg po BID * Protonix 40mg daily PO * Lactulose 30ml po BID * Albumin 25%, 25g q12h * Trental 400mg q8hr PO * Rifaximin 550mg BID PO GI following, appreciate recommendations, additional medications to include rifaximin and Trental added per GI. * EGD on 08/26 showed possible ayala esophagitis and portal hypertensive gastropathy, no varices * hold discharge until PT stabilizes or declines per note on 08/28 * Paracentesis performed on 08/29 with 6200mls of clear,yellow fluid drained Hospital Course: Patient with cirrhosis and tense ascites. Diagnostic paracentesis performed by ED physician, therapeutic paracentesis 4 L removed 08/24. He has allergies to sulfa and penicillin, stating he had severe vomiting with the latter medication. He received 1 dose of Levaquin 750 mg IV in ED. * Therapeutic paracentesis 08/24 * Levaquin x 3 days, discontinued due to negative work-up for SBP * Lactic acid initially 2.7-->1.4 * Blood culture NGTD * Peritoneal fluid: WBCs elevated to 120, peritoneal RBCs elevated to 641. Specific gravity, neutrophils, lymphocytes, monocytes within normal limits. * Gastroenterology consult placed as patient has presumptively advanced stage liver disease and will need long-term management and follow-up, also with esophageal varices. He had not had colonoscopy or EGD prior to admission * Furosemide, Propranolol, Spironolactone, Lactulose as above * Albumin low at 1.8, Pt given albumin 5% IV x1 on 08/24. * Daily weights * Monitor I's and O's * Pain control with Roxicodone, monitor for hypotension or sedation ICD Codes: K74.60 - Unspecified cirrhosis of liver Status: Acute (2) Ascites Plan: As above ICD Codes: R18.8 - Other ascites Status: Acute (3) Anasarca Plan: Pt with anasarca to lower abdomen on exam. Plan as above ICD Codes: R60.1 - Generalized edema Status: Acute (4) Ayala esophagitis Plan: Ayala esophagitis noted during EGD on 08/26. * Started on Nystatin 5ml swish and swallow by GI * Fluconazole 200mg po once on 08/27, then 100mg po qD for 21 days (08/28- ) ICD Codes: B37.81 - Candidal esophagitis (5) Cellulitis of both lower extremities Plan: Possible cellulitis though likely lower extremity symptoms are due to fluid excess. Patient with significant lower extremity swelling likely due to ascites. No suspicion for DVT on exam. The lesion noted on left lateral lower extremity is not immediately concerning for infection. * Nursing order for wound care with Xeroform and wrap with loose gauze. * Leg elevation * Diuretics as above * There is no discharge to culture at this time. * Only on Levaquin at this time, will expand antibiotics if indicated. ICD Codes: L03.115 - Cellulitis of right lower limb; L03.116 - Cellulitis of left lower limb Status: Chronic (6) ETOH abuse Plan: Patient has a history of alcohol overuse. Last drink was reportedly today. Cirrhosis likely related to hepatitis versus alcohol. Patient not in withdrawal anymore. * Order EtOH level * Oral multivitamins * CIWA protocol, continue to monitor, escalate care as needed * Discontinued on 08/31. * Neuro checks as noted ICD Codes: F10.10 - Alcohol abuse, uncomplicated Status: Acute (7) Fluids/Electrolytes/Nutrition/Prophylaxis Plan: Fluids: PO intake, avoid additional IV fluids due to anasarca, fluid restrict 2L recommended Electrolytes: Monitor as needed Nutrition: heart-healthy diet with 2 g sodium restriction DVT Prophylaxis: Early ambulation. Patient has coagulopathy due to liver disease , and has significant LE edema. Will hold pharmacologic and mechanical prophylaxis GI Prophylaxis: Protonix 40 mg PO daily Pain mgmt: Tylenol for scale 1-5, oxycodone for 6-10 Status: Acute Procedures Paracentesis on 08/24 and . EGD on 08/26 Brief History Patient is a 56 year old male with history of Hepatitis C who presents with 3 month history of this with worsening abdominal pain, fatigue, jaundice, leg swelling, and decreased appetite. He also notes occasional nosebleeds and easy bruising over this time but denies blood in stools. He notes no previous history of these symptoms aside from possibly requiring antibiotic treatment remotely for abdominal distention. He has no PCP. He had no diagnosis of cirrhosis and has never been seen by a head of marketing. He has never had paracenteses. He reports subjective fevers at home over the last 3 months. He had nausea and vomiting one month ago but this has not recurred. The leg swelling at this time he reports to be better than it has been previously but he notes a left leg wound that he has had for months have been weeping clear fluid. He has no trouble walking. He reports his weight has been stable (225lb) but he might have lost muscle mass. CBC/BMP: 09/01/17 0759 09/01/17 0759 Significant Findings Laboratory Tests Test 08/30/17 06:36 08/31/17 04:11 09/01/17 07:59 Red Blood Count 3.01 MIL/MM3 (4.50-5.90) 2.99 MIL/MM3 (4.50-5.90) 3.09 MIL/MM3 (4.50-5.90) Hemoglobin 10.5 GM/DL (13.0-17.0) 10.3 GM/DL (13.0-17.0) 10.6 GM/DL (13.0-17.0) Hematocrit 30.3 % (39.0-51.0) 29.9 % (39.0-51.0) 31.0 % (39.0-51.0) Mean Corpuscular Volume 100.6 FL (80.0-100.0) 100.1 FL (80.0-100.0) 100.1 FL (80.0-100.0) Mean Corpuscular Hemoglobin 34.9 PG (27.0-34.0) 34.5 PG (27.0-34.0) 34.1 PG (27.0-34.0) Red Cell Distribution Width 20.3 % (11.6-17.2) 20.1 % (11.6-17.2) 20.7 % (11.6-17.2) Platelet Count 52 TH/MM3 (150-450) 47 TH/MM3 (150-450) 43 TH/MM3 (150-450) Monocytes (%) (Auto) 21.2 % (0.0-8.0) 21.5 % (0.0-8.0) 28.2 % (0.0-8.0) Monocytes # (Auto) 1.6 TH/MM3 (0-0.9) 1.5 TH/MM3 (0-0.9) 2.1 TH/MM3 (0-0.9) Platelet Estimate LOW (NORMAL) LOW (NORMAL) Prothrombin Time 20.6 SEC (9.8-11.6) 21.1 SEC (9.8-11.6) 19.2 SEC (9.8-11.6) Total Protein 5.5 GM/DL (6.4-8.2) 5.5 GM/DL (6.4-8.2) 5.9 GM/DL (6.4-8.2) Albumin 2.0 GM/DL (3.4-5.0) 2.3 GM/DL (3.4-5.0) 2.7 GM/DL (3.4-5.0) Calcium Level 8.0 MG/DL (8.5-10.1) 8.0 MG/DL (8.5-10.1) 8.3 MG/DL (8.5-10.1) Aspartate Amino Transf (AST/SGOT) 76 U/L (15-37) 62 U/L (15-37) 60 U/L (15-37) Total Bilirubin 7.2 MG/DL (0.2-1.0) 7.5 MG/DL (0.2-1.0) 6.8 MG/DL (0.2-1.0) Sodium Level 134 MEQ/L (136-145) 134 MEQ/L (136-145) Chloride Level 97 MEQ/L (98-107) 97 MEQ/L (98-107) 97 MEQ/L (98-107) Carbon Dioxide Level 32.6 MEQ/L (21.0-32.0) 33.3 MEQ/L (21.0-32.0) Anion Gap 4 MEQ/L (5-15) Ammonia 43 MCMOL/L (11-32) 50 MCMOL/L (11-32) 52 MCMOL/L (11-32) Eosinophils (%) (Auto) 4.3 % (0.0-4.0) 5.1 % (0.0-4.0) Activated Partial Thromboplast Time 42.0 SEC (24.3-30.1) 39.9 SEC (24.3-30.1) Potassium Level 3.4 MEQ/L (3.5-5.1) 3.1 MEQ/L (3.5-5.1) Random Glucose 127 MG/DL (74-106) PE at Discharge GENERAL: Patient is a male, lying in bed, in no acute distress. SKIN: Warm and dry. The skin is notable to be jaundiced with telangiectasias distributed diffusely about the trunk and arms. The skin over the lower extremities bilaterally have cobblestoning pattern suggestive of previous extensive swelling, but no edema present. There is a rip of approximately 2 inches on the left lateral leg which shows good granulation tissue and no signs of obvious infection. HEAD: Atraumatic. Normocephalic. EYES: EOMI. There is notable scleral icterus. No injection or drainage. ENT: No nasal bleeding or discharge. Mucous membranes pink and moist. Left ear bandaged. NECK: Trachea midline. No JVD. CARDIOVASCULAR: Regular rate and rhythm. No murmurs, gallops, or rubs on auscultation. No chest wall tenderness. RESPIRATORY: No accessory muscle use. Clear to auscultation without wheezes or rhonchi. Breath sounds equal bilaterally. GASTROINTESTINAL: Abdomen more distended from yesterday, + Fluid wave. Bowel sounds are normal. The abdomen is still diffusely tender to palpation but improved. Hepatic and splenic margins not palpable due to distention. MUSCULOSKELETAL: Extremities without clubbing, cyanosis. No calf tenderness. Patient with anasarca to lower abdomen. NEUROLOGICAL: Awake and alert. No obvious cranial nerve deficits. Motor grossly within normal limits. Normal strength in the extremities. Normal speech. PSYCHIATRIC: Appropriate mood and affect; insight and judgment normal. Hospital Course 56-year-old male with history of hepatitis C admitted for inpatient workup and management of cirrhosis. GI was consulted. He was started on Lasix and Spironolactone for diuresis. He received a total of 2 paracenteses (4100 and 6200mls removed respectively). Esophageal candidiasis was found on EGD. SBP was ruled out. At the end of his stay he started refusing his lactulose (08/27). He is being discharge in fair condition and will need to establish with a PCP and follow up with GI. Pt Condition on Discharge: Fair Discharge Disposition: Discharge Home Discharge Instructions DIET: Follow Instructions for: Heart Healthy Diet Activities you can perform: Regular-No Restrictions Follow up Referrals: Gastroenterology - 1 Week with Jorge Luis Mcclain MD PCP Follow-up - 1 Week New Orders: BASIC METABOLIC PROF - 2-3 Days New Medications: Fluconazole (Fluconazole) 100 Mg Tab 100 MG PO DAILY for Infection, #21 TAB 0 Refills Take one tab daily until gone. Furosemide (Lasix) 40 Mg Tab 40 MG PO BID, #60 TAB 0 Refills Potassium Chloride ER (Potassium Chloride ER) 20 Meq Tab 20 MEQ PO DAILY for Electrolyte Replacement, #30 TAB 0 Refills Folic Acid (Folic Acid) 1 Mg Tablet 1 MG PO DAILY, #90 TAB Nystatin Liq (Nystatin Liq) 100,000 unit/ml Susp 5 ML SWISH-SWAL QID, #100 ML Pantoprazole (Pantoprazole) 40 Mg Tab 40 MG PO DAILY, #60 TAB Pentoxifylline ER (Pentoxifylline ER) 400 Mg Tab 400 MG PO Q8HR, #60 TAB Propranolol (Propranolol) 20 Mg Tab 20 MG PO Q12HR, #60 TAB Rifaximin (Xifaxan) 550 Mg Tab 550 MG PO BID, #60 TAB 2 Refills Spironolactone (Aldactone) 100 Mg Tab 100 MG PO BID@09,18, #60 TAB [Lactulose Liq] () 30 ML SYRP 30 ML PO BID, #300 ML Kimmie Viera MD R1 Sep 01, 2017 13:37
[2017-09-01] MEDS ORDERED: FUROSEMIDE 40 MG TAB PO SCH (18:00)
== END 2017-09-01 15:13 | disposition home or self-care (01) | DRG 433 ==
LOC: NEPE 14:43 → NEDA 19:29 → N07B 21:34
PROVIDERS: ADMIT Family Medicine; ATTEND Family Medicine
PROC: 0W9G3ZX Drainage of Peritoneal Cavity, Percutaneous Approach, Diagnostic (ICD-10-PCS; principal; 2017-08-23)
PROC: 0W9G3ZZ Drainage of Peritoneal Cavity, Percutaneous Approach (ICD-10-PCS; 2017-08-24)
PROC: 0DD68ZX Extraction of Stomach, Via Natural or Artificial Opening Endoscopic, Diagnostic (ICD-10-PCS; 2017-08-26)
PROC: 0W9G3ZZ Drainage of Peritoneal Cavity, Percutaneous Approach (ICD-10-PCS; 2017-08-29)
DX: K74.60 Unspecified cirrhosis of liver (principal); K76.6 Portal hypertension; D68.4 Acquired coagulation factor deficiency; B37.81 Candidal esophagitis; L03.115 Cellulitis of right lower limb; L03.116 Cellulitis of left lower limb; F10.239 Alcohol dependence with withdrawal, unspecified; K70.11 Alcoholic hepatitis with ascites; K72.90 Hepatic failure, unspecified without coma; B19.20 Unspecified viral hepatitis C without hepatic coma; F17.210 Nicotine dependence, cigarettes, uncomplicated; R00.0 Tachycardia, unspecified; Z80.0 Family history of malignant neoplasm of digestive organs; K21.9 Gastro-esophageal reflux disease without esophagitis; K31.89 Other diseases of stomach and duodenum; Z88.0 Allergy status to penicillin; Z88.2 Allergy status to sulfonamides; R60.1 Generalized edema
CPT/HCPCS: 49083; 74177; 80053; 80074; 80307; 81001; 82042; 82103; 82105; 82140; 82150; 82390; 82550; 82728; 82945; 83520; 83540; 83550; 83605; 83615; 83690; 84155; 84157; 84315; 84484; 85007; 85025; 85027; 85060; 85610; 85730; 86038; 86255; 86703; 87040; 87070; 87205; 87522; 87902; 88112; 88305; 88312; 89051; 93005; 94664; C1729; J0330; J1940; J1956; J2270; J2405; J3430; J7613; P9045; P9047; Q9967

== ENCOUNTER 2017-09-23 12:20 | Inpatient (IN) | payer OTHER ==
[~2017-09-23] VITALS: Ht 180.3 cm; Wt 70.0 kg
[~2017-09-23 12:20] MED LIST changes: -ACET5SOL5 PO; +ALDA100T PO; -CIPR500T4 PO; +FLUC100T2 PO; +FOLI1TAB6 PO; +FURO1TAB60 PO; -HYDR-3533 PO; +Lactulose Liq PO; -METR-1 PO; +NYST1000 SWISH-SWAL; +PANT40TA3 PO; +PENT400T PO; +POTA-163 PO; -POTA-243 PO; -PROM25SU8 PO; +PROP20TA3 PO; +XIFA550T4 PO
[2017-09-23 12:26] VITALS: BP 119/77; PULSE 63; RESP 14; TEMP 98.2; O2SAT 98
[2017-09-23 13:29] LABS: AUTOMATED NEUTROPHIL # 3.3 TH/MM3 (1.8-7.7); BASOPHIL % 0.7 % (0.0-2.0); EOSINOPHIL # 0.2 TH/MM3 (0-0.4); EOSINOPHIL % 2.4 % (0.0-4.0); HEMO FLAGS DIFF FINAL; LYMPH % 32.9 % (9.0-44.0); LYMPHOCYTE # 2.2 TH/MM3 (1.0-4.8); MEAN CORPUSCULAR HEMOGLOBIN 33.3 PG (27.0-34.0); MEAN CORPUSCULAR HGB CONC 33.7 % (32.0-36.0); MONO % 15.1 % (0.0-8.0); NEUT % 48.9 % (16.0-70.0); PLATELET COUNT 108 TH/MM3 (150-450); RED BLOOD COUNT 4.04 MIL/MM3 (4.50-5.90); RED CELL DISTRIBUTION WIDTH 20.4 % (11.6-17.2); WHITE BLOOD COUNT 6.7 TH/MM3 (4.0-11.0)
[2017-09-23 13:58] VITALS: BP 111/66; PULSE 59; RESP 19; O2SAT 98
[2017-09-23 14:01] LABS: BLOOD, URINE NEG (NEG); GLUCOSE,URINE NEG (NEG); HYALINE CAST, URINE 1 /lpf (RARE); KETONE, URINE TRACE mg/dL (NEG); NITRITE,URINE NEG (NEG); PH, URINE 7.5 (5.0-8.5); URINE COLOR YELLOW (YELLW/STRAW)
[2017-09-23 14:03] LABS: COMMENT (UR) CULT NOT INDICATED; CULTURE IF INDICATED CULT NOT INDICATED
[2017-09-23] MEDS ORDERED: SODIUM CHLORID 0.9% 500 ML INJ 500 ML IV ONE (14:15)
[2017-09-23] MEDS ORDERED: SODIUM CHLORIDE 0.9% FLUSH 10 ML FLUSH IV FLUSH PRN ×2 (14:15→16:00)
[2017-09-23] MEDS ORDERED: ONDANSETRON HCL 4 MG/2 ML VIAL IVP ONE (14:15)
[2017-09-23 14:18] VITALS: BP 111/68; PULSE 66; RESP 16; TEMP 98.3; O2SAT 98
--- NOTE | 2017-09-23 14:20 | PD ---
HPI Chief Complaint: Altered Mental Status Time Seen by Provider: 13:37 Travel History International Travel<30 days: No Contact w/Intl Traveler<30days: No Traveled to known affect area: No History of Present Illness HPI 57-year-old male presents to the emergency department his at bedside for worsening abdominal pain, not eating for 3 days, increased confusion. Patient was admitted on August 23, 2017, discharged on September 01, 2017. Patient has history of cirrhosis of liver, hepatitis C. Patient has not been able to follow -up with a physician since discharge. He ran out of his nystatin swish and swallow as well as his lactulose approximately 5 days ago. His states that his mentation has been declining since approximately a week after discharge from the hospital. He also has becoming progressively weak and is now having to walk with a walker. She states that he has refused to eat for the past 3 days and has vomited, last time was yesterday. He has not had any paracentesis or follow-up since discharge from the hospital. The patient is lethargic on my exam. He denies any headache, fever, chills. No chest pain or shortness of breath. He reports abdominal pain, diffuse, 9/10. Severity is moderate to severe. No exacerbating or alleviating factors. PFSH Past Medical History Arthritis: No Asthma: No Autoimmune Disease: No Blood Disorders: No Anxiety: No Depression: No Heart Rhythm Problems: No Cancer: No Cardiovascular Problems: No High Cholesterol: No Chest Pain: No Congestive Heart Failure: No Cirrhosis: Yes COPD: No Cerebrovascular Accident: No Diabetes: No Diminished Hearing: No Endocrine: No Gastrointestinal Disorders: No GERD: No Glaucoma: No Genitourinary: No Headaches: No Hepatitis: Yes Hiatal Hernia: No Heparin Induced Thrombocytopen: No Hypertension: No Immune Disorder: No Implanted Vascular Access Dvce: No Kidney Stones: No Musculoskeletal: Yes Neurologic: No Psychiatric: No Reproductive: No Respiratory: No Integumentary: Yes (CELLULITIS) Migraines: No Myocardial Infarction: No Renal Failure: No Seizures: No Sickle Cell Disease: No Sleep Apnea: No Thyroid Disease: No Ulcer: No Past Surgical History Abdominal Surgery: No AICD: No Appendectomy: No Arteriovenous Shunt: No Cardiac Surgery: No Cholecystectomy: No Ear Surgery: No Endocrine Surgery: No Eye Surgery: No Genitourinary Surgery: No Gynecologic Surgery: No Insulin Pump: No Joint Replacement: No Neurologic Surgery: No Oral Surgery: No Pacemaker: No Thoracic Surgery: No Other Surgery: Yes (LEFT HAND SURGERY) Social History Alcohol Use: No (WEEKENDS-2 SHOTS TODAY-01/09/16) Tobacco Use: Yes (1 PPD) Substance Use: No Allergies-Medications (Allergen,Severity, Reaction): Coded Allergies: Sulfa (Sulfonamide Antibiotics) (Unverified Allergy, Severe, SWELLING TO HANDS, 09/23/17) penicillin V (Verified Allergy, Severe, VOMITING, 09/23/17) Reported Meds & Prescriptions Reported Meds & Active Scripts Active Potassium Chloride ER (Potassium Chloride) 20 Meq Tab 20 Meq PO DAILY Lasix (Furosemide) 40 Mg Tab 40 Mg PO BID Folic Acid 1 Mg Tablet 1 Mg PO DAILY Pantoprazole (Pantoprazole Sodium) 40 Mg Tab 40 Mg PO DAILY [Lactulose Liq] 30 ML Syrp 30 Ml PO BID Aldactone (Spironolactone) 100 Mg Tab 100 Mg PO BID@09,18 Propranolol (Propranolol HCl) 20 Mg Tab 20 Mg PO Q12HR Pentoxifylline ER (Pentoxifylline) 400 Mg Tab 400 Mg PO Q8HR Nystatin Liq 100,000 unit/ml Susp 5 Ml SWISH-SWAL QID Xifaxan (Rifaximin) 550 Mg Tab 550 Mg PO BID Fluconazole 100 Mg Tab 100 Mg PO DAILY Take one tab daily until gone. Review of Systems Except as stated in HPI: all other systems reviewed are Neg Physical Exam Narrative GENERAL: Well-nourished, well-developed male patient, afebrile. Patient is lethargic. He is oriented to person and place, but not time. SKIN: Focused skin assessment warm/dry. Patient is jaundiced. HEAD: Normocephalic. EYES: Scleral icterus. No injection or drainage. NECK: Supple, trachea midline. No JVD or lymphadenopathy. CARDIOVASCULAR: Regular rate and rhythm without murmurs, gallops, or rubs. RESPIRATORY: Breath sounds equal bilaterally. No accessory muscle use. Lungs sounds are clear to auscultation. GASTROINTESTINAL: Abdomen soft and nondistended. Diffuse tenderness to palpation. MUSCULOSKELETAL: No cyanosis, or edema. BACK: Nontender without obvious deformity. No CVA tenderness. Data Data Last Documented VS Vital Signs Date Time Temp Pulse Resp B/P (MAP) Pulse Ox O2 Delivery O2 Flow Rate FiO2 09/23/17 14:18 98.3 66 16 111/68 (82) 98 Room Air Orders Orders Complete Blood Count With Diff (09/23/17 12:37) Ammonia (09/23/17 12:37) Urinalysis - C+S If Indicated (09/23/17 12:37) Direct Bilirubin (09/23/17 12:37) Electrocardiogram (09/23/17 ) Comprehensive Metabolic Panel (09/23/17 14:04) Prothrombin Time / Inr (Pt) (09/23/17 14:04) Act Partial Throm Time (Ptt) (09/23/17 14:04) Ct Abd/Pel W Iv Contrast(Rout) (09/23/17 14:04) Iv Access Insert/Monitor (09/23/17 14:04) Ecg Monitoring (09/23/17 14:04) Oximetry (09/23/17 14:04) Ondansetron Inj (Zofran Inj) (09/23/17 14:15) Sodium Chloride 0.9% Flush (Ns Flush) (09/23/17 14:15) Chest, Single Ap (09/23/17 14:04) Sodium Chlorid 0.9% 500 Ml Inj (Ns 500 M (09/23/17 14:15) Lactulose Liq (Lactulose Liq) (09/23/17 15:00) Admit Order (Ed Use Only) (09/23/17 15:51) Labs Laboratory Tests Test 09/23/17 12:57 09/23/17 13:05 09/23/17 14:18 White Blood Count 6.7 TH/MM3 Red Blood Count 4.04 MIL/MM3 Hemoglobin 13.5 GM/DL Hematocrit 40.0 % Mean Corpuscular Volume 99.0 FL Mean Corpuscular Hemoglobin 33.3 PG Mean Corpuscular Hemoglobin Concent 33.7 % Red Cell Distribution Width 20.4 % Platelet Count 108 TH/MM3 Mean Platelet Volume 9.0 FL Neutrophils (%) (Auto) 48.9 % Lymphocytes (%) (Auto) 32.9 % Monocytes (%) (Auto) 15.1 % Eosinophils (%) (Auto) 2.4 % Basophils (%) (Auto) 0.7 % Neutrophils # (Auto) 3.3 TH/MM3 Lymphocytes # (Auto) 2.2 TH/MM3 Monocytes # (Auto) 1.0 TH/MM3 Eosinophils # (Auto) 0.2 TH/MM3 Basophils # (Auto) 0.0 TH/MM3 CBC Comment DIFF FINAL Differential Comment Direct Bilirubin 3.7 MG/DL Ammonia 140 MCMOL/L Urine Color YELLOW Urine Turbidity CLEAR Urine pH 7.5 Urine Specific [place] 1.024 Urine Protein TRACE mg/dL Urine Glucose (UA) NEG mg/dL Urine Ketones TRACE mg/dL Urine Occult Blood NEG Urine Nitrite NEG Urine Bilirubin NEG Urine Urobilinogen 4.0 MG/DL Urine Leukocyte Esterase NEG Urine RBC LESS THAN 1 /hpf Urine WBC 1 /hpf Urine Hyaline Casts 1 /lpf Microscopic Urinalysis Comment CULT NOT INDICATED Prothrombin Time 15.4 SEC Prothromb Time International Ratio 1.4 RATIO Activated Partial Thromboplast Time 35.2 SEC Blood Urea Nitrogen 36 MG/DL Creatinine 1.54 MG/DL Random Glucose 144 MG/DL Total Protein 8.4 GM/DL Albumin 3.1 GM/DL Calcium Level 9.6 MG/DL Alkaline Phosphatase 139 U/L Aspartate Amino Transf (AST/SGOT) 81 U/L Alanine Aminotransferase (ALT/SGPT) 43 U/L Total Bilirubin 5.7 MG/DL Sodium Level 136 MEQ/L Potassium Level 5.3 MEQ/L Chloride Level 106 MEQ/L Carbon Dioxide Level 22.5 MEQ/L Anion Gap 8 MEQ/L Estimat Glomerular Filtration Rate 47 ML/MIN [facility] Medical Decision Making Medical Screen Exam Complete: Yes Emergency Medical Condition: Yes Medical Record Reviewed: Yes Interpretation(s) Last Impressions Chest X-Ray 09/23/171403 Signed Impressions: Service Date/Time: Saturday, September 23, 2017 14:25 - CONCLUSION: No acute disease. Gus Roy Jr., MD Abdomen/Pelvis CT 09/23/17 140 Signed Impressions: Service Date/Time: Saturday, September 23, 2017 15:31 - CONCLUSION: 1. Cirrhotic appearing liver with splenomegaly and ascites indicating portal hypertension. Note is made of a recanalized umbilical vein. Overall amount of ascites within the abdomen is minimal. 2. Examination is otherwise unremarkable. Hugh Nicolas MD Differential Diagnosis Hepatic encephalopathy versus cirrhosis of the liver versus hyperammonemia versus electrolyte abnormality versus SBP Narrative Course 57-year-old male presents to the emergency department for increasing weakness, increasing confusion, increasing abdominal pain and decreased appetite. Patient is very jaundiced on exam. He ran out of his lactulose 5 days ago. EKG , CBC, CMP, ammonia level, UA, PTT, PT/INR are ordered and pending. Chest x- ray is ordered and pending. CT abdomen/pelvis with IV contrast is ordered and pending. Patient is given normal saline 500 mL bolus, Zofran 4 mg IV. EKG shows sinus rhythm, heart rate 63, no acute ST changes. CBC shows no acute abnormality. CMP shows hyperkalemia 5.3, BUN 36, creatinine 1.54, glucose 144, bilirubin 5.7. Ammonia is 140. UA is negative for infection. PTT is 35.2. PT /INR is 15.4/1.4. Chest x-ray shows no acute disease. CT abdomen/pelvis shows cirrhotic appearing liver with splenomegaly and ascites indicating portal hypertension. Note is made of a recanalized umbilical vein. Overall amount of ascites within the abdomen is minimal; Examination is otherwise unremarkable. Patient is given lactulose 30 mg by mouth. [facility] is paged for admission. Dr. Urena accepted admission. However, it appears patient has an appointment tomorrow the residents and they followed him on his last admission. Admission will be offered to residents. Residents declined admission. Dr. Urena accepted admission. Diagnosis Primary Impression: Hepatic encephalopathy Additional Impression: Cirrhosis of liver Qualified Codes: K70.30 - Alcoholic cirrhosis of liver without ascites Admitting Information Admitting Physician Requests: Admit Jazmyn Koch Sep 23, 2017 14:20
[2017-09-23 14:36] LABS: APTT (PATIENT) 35.2 SEC (24.3-30.1); INTERNATIONAL NORMALIZED RATIO 1.4 RATIO; PROTHROMBIN TIME - PATIENT 15.4 SEC (9.8-11.6)
--- NOTE | 2017-09-23 14:57 | RADRPT ---
EXAM DATE/TIME: 09/23/2017 14:25 [facility] COMPARISON: No previous studies available for comparison. INDICATIONS : Short of breath, AMS, weakness MEDICAL HISTORY : Hepatitis C. Cirrhosis. alcohol use SURGICAL HISTORY : left hand ENCOUNTER: Initial ACUITY: 1 day PAIN SCORE: Non-responsive. LOCATION: Bilateral chest FINDINGS: A single view of the chest demonstrates the lungs to be symmetrically aerated without evidence of mas s, infiltrate or effusion. The cardiomediastinal contours are unremarkable. There is an old distal l eft clavicular fracture with lack of union. CONCLUSION: No acute disease. Gus Roy Jr., MD on September 23, 2017 at 14:55 Board Certified Radiologist. This report was verified electronically.
[2017-09-23 14:59] LABS: ALKALINE PHOSPHATASE 139 U/L (45-117)
[2017-09-23] MEDS ORDERED: LACTULOSE SYRUP 20 GM/30 ML CUP PO ONE (15:00)
[2017-09-23 15:02] LABS: ALT (GPT) 43 U/L (12-78); ANION GAP 8 MEQ/L (5-15); AST (GOT) 81 U/L (15-37); BICARBONATE 22.5 MEQ/L (21.0-32.0); BLOOD UREA NITROGEN 36 MG/DL (7-18); CHLORIDE 106 MEQ/L (98-107); GLOMERULAR FILTRATION RATE 47 ML/MIN (>89); POTASSIUM 5.3 MEQ/L (3.5-5.1); SODIUM (NA) 136 MEQ/L (136-145); TOTAL BILIRUBIN ADULT 5.7 MG/DL (0.2-1.0)
[2017-09-23] MEDS ORDERED: IOHEXOL 350 MG/ML 10 ML VIAL (for RAD DIAG) IVCONTRAST ONE (15:57)
[2017-09-23] MEDS ORDERED: NALOXONE HCL 0.4 MG/ML AMP IV PUSH PRN (16:00)
--- NOTE | 2017-09-23 16:13 | RADRPT ---
EXAM DATE/TIME: 09/23/2017 15:31 [facility] COMPARISON: CT ABDOMEN & PELVIS W CONTRAST, August 23, 2017, 17:39. INDICATIONS : Stomach pain,cofusion,has not eaten in three days. IV CONTRAST: 75 cc Omnipaque 350 (iohexol) IV ORAL CONTRAST: No oral contrast ingested. RADIATION DOSE: 6.67 CTDIvol (mGy) MEDICAL HISTORY : Cirrhosis. Hepatitis B. SURGICAL HISTORY : None. ENCOUNTER: Initial ACUITY: 3 days PAIN SCALE: 5/10 LOCATION: Abdomen TECHNIQUE: Volumetric scanning of the abdomen and pelvis was performed. Using automated exposure control and ad justment of the mA and/or kV according to patient size, radiation dose was kept as low as reasonably achievable to obtain optimal diagnostic quality images. DICOM format image data is available electro nically for review and comparison. FINDINGS: The limited portion of the lung base visualized is clear. Examination of the liver demonstrates heterogeneous enhancement of the liver. There is splenomegaly a nd ascites. Exam would suggest cirrhosis and portal hypertension. The pancreas, adrenal glands and kidneys are intact. The abdominal aorta is normal in caliber. There is no significant retroperitoneal adenopathy. The visualized loops of small and large bowel are unrem arkable. There is a small amount of ascites within the pelvis. No iliac or inguinal adenopathy is seen. The lo ops of small and large bowel within the pelvis are unremarkable. The visualized bony structures demonstrate degenerative changes but are otherwise intact. CONCLUSION: 1. Cirrhotic appearing liver with splenomegaly and ascites indicating portal hypertension. Note is ma de of a recanalized umbilical vein. Overall amount of ascites within the abdomen is minimal. 2. Examination is otherwise unremarkable. Hugh Nicolas MD on September 23, 2017 at 16:02 Board Certified Radiologist. This report was verified electronically.
[2017-09-23 16:42] VITALS: BP 115/75
--- NOTE | 2017-09-23 19:30 | HHI.HP ---
HPI Service [facility] Primary Care Physician No Primary Care Physician Admission Diagnosis hepatic encephalopathy; liver cirrhosis Diagnoses: Travel History International Travel<30 Days: No Contact w/Intl Traveler <30 Da: No Traveled to Known Affected Are: No History of Present Illness History from patient, at the bedside, ER nurse practitioner to medication, and review of medical records. Patient is extremely poor historian. He would answer yes or no but looks quite sleepy and just wanted to go back to sleep. Most of the history is provided by the who is at the bedside. not eating or drinking for 4 days no appetitie was admitted here for 9 days- and dc on 09/01/17 pt c/o pain in abdomen all over also is confused since dc home from hospital confused at time of interview ran out of lactulose and nystatin swish and swallow was shaking as well today - chills temp was 95,6 no coffee color but was nauseous vomited only ensure, no blood has decresed urination but no blood Review of Systems ROS Limitations: Poor Historian Except as stated in HPI: all other systems reviewed are Neg Past Family Social History Past Medical History Liver cirrhosis Therapeutic paracentesis 08/24 Esophageal Varices Heber esophagitis by EGD - Fluconazole 200mg po once on 08/27, then 100mg po qD for 21 days (08/28- ) etoh abuse hepatitis C Past Surgical History EGD Allergies: Coded Allergies: Sulfa (Sulfonamide Antibiotics) (Unverified Allergy, Severe, SWELLING TO HANDS, 09/23/17) penicillin V (Verified Allergy, Severe, VOMITING, 09/23/17) Family History Mother: HTN Father: colon cancer diagnosed age 60ish, age 70 Siblings: healthy Children: healthy son Social History Tobacco: 2 cigarettes a day, 1PPD x 10+ years EtOH: 10-12 years heavy use, one year reduced use (3 glasses daily mixed drinks) - now quit on 08/22/17 before last hospitalization Illicit: denies Lives with mother and and grandmother Physical Exam Vital Signs Vital Signs Date Time Temp Pulse Resp B/P (MAP) Pulse Ox O2 Delivery O2 Flow Rate FiO2 09/23/17 16:42 65 16 115/75 (88) 98 09/23/17 14:18 98.3 66 16 111/68 (82) 98 Room Air 09/23/17 13:58 59 19 111/66 (81) 98 Room Air 09/23/17 13:58 66 19 96 Room Air 09/23/17 12:26 98.2 63 14 119/77 (91) 98 Physical Exam GENERAL: This is confused gentleman, looks weak, flat affect. SKIN: No rashes, ecchymoses or lesions. Cool and dry. Jaundiced. HEAD: Atraumatic. Normocephalic. No temporal or scalp tenderness. EYES: Sclera icterus present. No injection or drainage. ENT: Nose without bleeding, purulent drainage or septal hematoma. Airway patent. NECK: Trachea midline. No JVD CARDIOVASCULAR: Regular rate and rhythm without murmurs, gallops, or rubs. RESPIRATORY: Clear to auscultation. Breath sounds equal bilaterally. No wheezes , rales, or rhonchi. GASTROINTESTINAL: Abdomen soft, non-tender, nondistended. No guarding. MUSCULOSKELETAL: Extremities without clubbing, cyanosis, or edema. No flapping tremors. NEUROLOGICAL: Alert, but is quite sleepy most of the time.. Motor and sensory grossly within normal limits. Normal speech. Laboratory Laboratory Tests Test 09/23/17 12:57 09/23/17 13:05 09/23/17 14:18 White Blood Count 6.7 Red Blood Count 4.04 Hemoglobin 13.5 Hematocrit 40.0 Mean Corpuscular Volume 99.0 Mean Corpuscular Hemoglobin 33.3 Mean Corpuscular Hemoglobin Concent 33.7 Red Cell Distribution Width 20.4 Platelet Count 108 Mean Platelet Volume 9.0 Neutrophils (%) (Auto) 48.9 Lymphocytes (%) (Auto) 32.9 Monocytes (%) (Auto) 15.1 Eosinophils (%) (Auto) 2.4 Basophils (%) (Auto) 0.7 Neutrophils # (Auto) 3.3 Lymphocytes # (Auto) 2.2 Monocytes # (Auto) 1.0 Eosinophils # (Auto) 0.2 Basophils # (Auto) 0.0 CBC Comment DIFF FINAL Differential Comment Direct Bilirubin 3.7 Ammonia 140 Urine Color YELLOW Urine Turbidity CLEAR Urine pH 7.5 Urine Specific [place] 1.024 Urine Protein TRACE Urine Glucose (UA) NEG Urine Ketones TRACE Urine Occult Blood NEG Urine Nitrite NEG Urine Bilirubin NEG Urine Urobilinogen 4.0 Urine Leukocyte Esterase NEG Urine RBC LESS THAN 1 Urine WBC 1 Urine Hyaline Casts 1 Microscopic Urinalysis Comment CULT NOT INDICATED Prothrombin Time 15.4 Prothromb Time International Ratio 1.4 Activated Partial Thromboplast Time 35.2 Blood Urea Nitrogen 36 Creatinine 1.54 Random Glucose 144 Total Protein 8.4 Albumin 3.1 Calcium Level 9.6 Alkaline Phosphatase 139 Aspartate Amino Transf (AST/SGOT) 81 Alanine Aminotransferase (ALT/SGPT) 43 Total Bilirubin 5.7 Sodium Level 136 Potassium Level 5.3 Chloride Level 106 Carbon Dioxide Level 22.5 Anion Gap 8 Estimat Glomerular Filtration Rate 47 Result Diagram: 09/23/17 1257 09/23/17 1418 Imaging Last 48 hours Impressions Chest X-Ray 09/23/17 140 Signed Impressions: Service Date/Time: Saturday, September 23, 2017 14:25 - CONCLUSION: No acute disease. Gus Roy Jr., MD Abdomen/Pelvis CT 09/23/171403 Signed Impressions: Service Date/Time: Saturday, September 23, 2017 15:31 - CONCLUSION: 1. Cirrhotic appearing liver with splenomegaly and ascites indicating portal hypertension. Note is made of a recanalized umbilical vein. Overall amount of ascites within the abdomen is minimal. 2. Examination is otherwise unremarkable. MD Marisela Gibbsi VTE Risk Assessment Caprini VTE Risk Assessment: Mod/High Risk (score >= 2) Caprini Risk Assessment Model Point Value = 1 Point Value = 2 Point Value = 3 Point Value = 5 Age 41-60 Minor surgery BMI > 25 kg/m2 Swollen legs Varicose veins or History of unexplained or recurrent spontaneous Oral contraceptives or hormone replacement Sepsis (< 1 month) Serious lung disease, including pneumonia (< 1 month) Abnormal pulmonary function Acute myocardial infarction Congestive heart failure (< 1 month) History of inflammatory bowel disease Medical patient at bed rest Age 61-74 Arthroscopic surgery Major open surgery (> 45 min) Laparoscopic surgery (> 45 min) Malignancy Confined to bed (> 72 hours) Immobilizing plaster cast Central venous access Age >= 75 History of VTE Family history of VTE Factor V Leiden Prothrombin [id number] Lupus anticoagulant Anticardiolipin antibodies Elevated serum homocysteine Heparin-induced thrombocytopenia Other congenital or acquired thrombophilia Stroke (< 1 month) Elective arthroplasty Hip, pelvis, or leg fracture Acute spinal cord injury (< 1 month) Prophylaxis Regimen Total Risk Factor Score Risk Level Prophylaxis Regimen 0-1 Low Early ambulation 2 Moderate Order ONE of the following: *Sequential Compression Device (SCD) *Heparin 5000 units SQ BID 3-4 Higher Order ONE of the following medications: *Heparin 5000 units SQ TID *Enoxaparin/Lovenox 40 mg SQ daily (WT < 150 kg, CrCl > 30 mL/min) *Enoxaparin/Lovenox 30 mg SQ daily (WT < 150 kg, CrCl > 10-29 mL/min) *Enoxaparin/Lovenox 30 mg SQ BID (WT < 150 kg, CrCl > 30 mL/min) AND/OR *Sequential Compression Device (SCD) 5 or more Highest Order ONE of the following medications: *Heparin 5000 units SQ TID (Preferred with Epidurals) *Enoxaparin/Lovenox 40 mg SQ daily (WT < 150 kg, CrCl > 30 mL/min) *Enoxaparin/Lovenox 30 mg SQ daily (WT < 150 kg, CrCl > 10-29 mL/min) *Enoxaparin/Lovenox 30 mg SQ BID (WT < 150 kg, CrCl > 30 mL/min) AND *Sequential Compression Device (SCD) Assessment and Plan Assessment and Plan Impression: hepatic encephalopathy hyperammonia acute renal failure dehdyration due to poor oral intake hyperbilirubinemia heber esophagitis Plan: iv hydration at 100cc/hr for now may need to scale down in am lactulose 30ml tid resume home meds poor oral intake from heber esophagitis likely if no improvement, consider GI eval again protonix scd Discussed Condition With patient, , ER PUBLIC POLICY PROFESSOR, nursing staff Physician Certification 2 Midnight Certification Type: Admission for Inpatient Services Order for Inpatient Services The services are ordered in accordance with Medicare regulations or non- Medicare payer requirements, as applicable. In the case of services not specified as inpatient-only, they are appropriately provided as inpatient services in accordance with the 2-midnight benchmark. Estimated LOS (days): 2 days is the estimated time the patient will need to remain in the hospital, assuming treatment plan goals are met and no additional complications. Post-Hospital Plan: Home Breana Urena MD Sep 23, 2017 19:30
--- NOTE | 2017-09-23 19:42 | PD ---
Physical Exam Date Seen by Provider: Sep 23, 2017 Time Seen by Provider: 15:30 Narrative I, Dr. Zarate, have reviewed the advance practice practitioner's documentation and am in agreement, met with the patient face to face, made the diagnosis, and the medical decision making was done by me. *My assessment and Findings: Patient seen and evaluated with PA, please see PAs note for further details. Patient is here with worsening disorientation, not eating for several days, with no focal neurological features. History is per . He is fairly disoriented in the ER. Laboratory Tests Test 09/23/17 12:57 09/23/17 13:05 09/23/17 14:18 Red Blood Count 4.04 MIL/MM3 (4.50-5.90) Red Cell Distribution Width 20.4 % (11.6-17.2) Platelet Count 108 TH/MM3 (150-450) Monocytes (%) (Auto) 15.1 % (0.0-8.0) Monocytes # (Auto) 1.0 TH/MM3 (0-0.9) Direct Bilirubin 3.7 MG/DL (0.0-0.2) Ammonia 140 MCMOL/L (11-32) Urine Ketones TRACE mg/dL (NEG) Urine Urobilinogen 4.0 MG/DL (LESS THAN Prothrombin Time 15.4 SEC (9.8-11.6) Activated Partial Thromboplast Time 35.2 SEC (24.3-30.1) Blood Urea Nitrogen 36 MG/DL (7-18) Creatinine 1.54 MG/DL (0.60-1.30) Random Glucose 144 MG/DL (74-106) Total Protein 8.4 GM/DL (6.4-8.2) Albumin 3.1 GM/DL (3.4-5.0) Alkaline Phosphatase 139 U/L (45-117) Aspartate Amino Transf (AST/SGOT) 81 U/L (15-37) Total Bilirubin 5.7 MG/DL (0.2-1.0) Potassium Level 5.3 MEQ/L (3.5-5.1) Estimat Glomerular Filtration Rate 47 ML/MIN (>89) Last 24 hours Impressions Chest X-Ray 09/23/17 1404 Signed Impressions: Service Date/Time: Saturday, September 23, 2017 14:25 - CONCLUSION: No acute disease. Gus Roy Jr., MD Abdomen/Pelvis CT 09/23/17 1404 Signed Impressions: Service Date/Time: Saturday, September 23, 2017 15:31 - CONCLUSION: 1. Cirrhotic appearing liver with splenomegaly and ascites indicating portal hypertension. Note is made of a recanalized umbilical vein. Overall amount of ascites within the abdomen is minimal. 2. Examination is otherwise unremarkable. Hugh Nicolas MD Lab work shows elevated ammonia levels and there is concern of hepatic encephalopathy. Lactulose was given. Case is discussed with Dr. Urena for admission. Data Data Last Documented VS Vital Signs Date Time Temp Pulse Resp B/P (MAP) Pulse Ox O2 Delivery O2 Flow Rate FiO2 09/23/17 14:18 98.3 66 16 111/68 (82) 98 Room Air Orders Orders Complete Blood Count With Diff (09/23/17 12:37) Ammonia (09/23/17 12:37) Urinalysis - C+S If Indicated (09/23/17 12:37) Direct Bilirubin (09/23/17 12:37) Electrocardiogram (09/23/17 ) Comprehensive Metabolic Panel (09/23/17 14:04) Prothrombin Time / Inr (Pt) (09/23/17 14:04) Act Partial Throm Time (Ptt) (09/23/17 14:04) Ct Abd/Pel W Iv Contrast(Rout) (09/23/17 14:04) Iv Access Insert/Monitor (09/23/17 14:04) Ecg Monitoring (09/23/17 14:04) Oximetry (09/23/17 14:04) Ondansetron Inj (Zofran Inj) (09/23/17 14:15) Sodium Chloride 0.9% Flush (Ns Flush) (09/23/17 14:15) Chest, Single Ap (09/23/17 14:04) Sodium Chlorid 0.9% 500 Ml Inj (Ns 500 M (09/23/17 14:15) Lactulose Liq (Lactulose Liq) (09/23/17 15:00) Admit Order (Ed Use Only) (09/23/17 15:51) Labs Laboratory Tests Test 09/23/17 12:57 09/23/17 13:05 09/23/17 14:18 White Blood Count 6.7 TH/MM3 Red Blood Count 4.04 MIL/MM3 Hemoglobin 13.5 GM/DL Hematocrit 40.0 % Mean Corpuscular Volume 99.0 FL Mean Corpuscular Hemoglobin 33.3 PG Mean Corpuscular Hemoglobin Concent 33.7 % Red Cell Distribution Width 20.4 % Platelet Count 108 TH/MM3 Mean Platelet Volume 9.0 FL Neutrophils (%) (Auto) 48.9 % Lymphocytes (%) (Auto) 32.9 % Monocytes (%) (Auto) 15.1 % Eosinophils (%) (Auto) 2.4 % Basophils (%) (Auto) 0.7 % Neutrophils # (Auto) 3.3 TH/MM3 Lymphocytes # (Auto) 2.2 TH/MM3 Monocytes # (Auto) 1.0 TH/MM3 Eosinophils # (Auto) 0.2 TH/MM3 Basophils # (Auto) 0.0 TH/MM3 CBC Comment DIFF FINAL Differential Comment Direct Bilirubin 3.7 MG/DL Ammonia 140 MCMOL/L Urine Color YELLOW Urine Turbidity CLEAR Urine pH 7.5 Urine Specific [place] 1.024 Urine Protein TRACE mg/dL Urine Glucose (UA) NEG mg/dL Urine Ketones TRACE mg/dL Urine Occult Blood NEG Urine Nitrite NEG Urine Bilirubin NEG Urine Urobilinogen 4.0 MG/DL Urine Leukocyte Esterase NEG Urine RBC LESS THAN 1 /hpf Urine WBC 1 /hpf Urine Hyaline Casts 1 /lpf Microscopic Urinalysis Comment CULT NOT INDICATED Prothrombin Time 15.4 SEC Prothromb Time International Ratio 1.4 RATIO Activated Partial Thromboplast Time 35.2 SEC Blood Urea Nitrogen 36 MG/DL Creatinine 1.54 MG/DL Random Glucose 144 MG/DL Total Protein 8.4 GM/DL Albumin 3.1 GM/DL Calcium Level 9.6 MG/DL Alkaline Phosphatase 139 U/L Aspartate Amino Transf (AST/SGOT) 81 U/L Alanine Aminotransferase (ALT/SGPT) 43 U/L Total Bilirubin 5.7 MG/DL Sodium Level 136 MEQ/L Potassium Level 5.3 MEQ/L Chloride Level 106 MEQ/L Carbon Dioxide Level 22.5 MEQ/L Anion Gap 8 MEQ/L Estimat Glomerular Filtration Rate 47 ML/MIN [facility] Medical Record Reviewed: Yes Supervised Visit with ESPERANZA: Yes Diagnosis Primary Impression: Hepatic encephalopathy Additional Impression: Cirrhosis of liver Qualified Codes: K70.30 - Alcoholic cirrhosis of liver without ascites Admitting Information Admitting Physician Requests: Admit Myla Zarate MD Sep 23, 2017 19:42
[2017-09-23 20:00] VITALS: BP 114/62; PULSE 78; RESP 17; TEMP 99.2; O2SAT 95
[2017-09-23] MEDS: SODIUM CHLORIDE 0.9% FLUSH 10 ML FLUSH IV FLUSH SCH (20:25)
[2017-09-23] MEDS: SODIUM CHLOR 0.9% 1000 ML INJ 1,000 ML IV SCH (22:02)
[2017-09-23] MEDS: LACTULOSE SYRUP 20 GM/30 ML CUP PO SCH (22:06)
[2017-09-23] MEDS: NYSTATIN SUSP 500,000 U/5 ML CUP SWISH-SWAL SCH (22:07)
[2017-09-23] MEDS: RIFAXIMIN 550 MG TAB PO SCH (22:08)
[2017-09-23] MEDS: PROPRANOLOL HCL 20 MG TAB PO SCH (22:08)
[2017-09-23] MEDS: PENTOXIFYLLINE 400 MG CONTROLLED RELEASE TAB PO SCH (22:08)
[2017-09-24] VITALS (7 sets, daily range): BP systolic 108–119; BP diastolic 64–70; PULSE 56–68; RESP 17–18; TEMP 95.8–98.9; O2SAT 95–98
[2017-09-24] MEDS: PENTOXIFYLLINE 400 MG CONTROLLED RELEASE TAB PO SCH ×3 (05:39→20:55)
[2017-09-24] MEDS: SODIUM CHLOR 0.9% 1000 ML INJ 1,000 ML IV SCH ×3 (05:45→20:55)
[2017-09-24 07:27] LABS: BASOPHIL % 0.6 % (0.0-2.0); EOSINOPHIL # 0.2 TH/MM3 (0-0.4); EOSINOPHIL % 3.3 % (0.0-4.0); HEMATOCRIT 37.9 % (39.0-51.0); LYMPH % 31.2 % (9.0-44.0); MEAN CORPUSCULAR HEMOGLOBIN 33.5 PG (27.0-34.0); MEAN CORPUSCULAR HGB CONC 33.5 % (32.0-36.0); MONO % 17.6 % (0.0-8.0); NEUT % 47.3 % (16.0-70.0); PLATELET COUNT 73 TH/MM3 (150-450); RED BLOOD COUNT 3.79 MIL/MM3 (4.50-5.90); RED CELL DISTRIBUTION WIDTH 19.9 % (11.6-17.2); WHITE BLOOD COUNT 6.4 TH/MM3 (4.0-11.0)
[2017-09-24 07:34] LABS: HEMO FLAGS AUTO DIFF
--- NOTE | 2017-09-24 08:12 | PD.CONS ---
HPI History of Present Illness This is a 57 year old with liver cirrhosis, alcoholic hepatitis, hepatic encephalopathy, GERD, hepatitis C, thrombocytopenia/coagulopathy who was recently hospitalized for new onset ascites from 08/23-09/01. During that hospitalization, he underwent an ultrasound guided paracentesis on (08/24/17) with removal of 4,100cc of peritoneal fluid. Peritoneal WBC 120, RBC 641, Neutrophils 30. Peritoneal cx no growth 48 hours. He then had a repeat paracentesis (08/29/17) with removal of 6,200 (08/29). He was discharged home on Spironolactone 100mg po BID, Propranolol 20mg po q12h, Xifaxan 550mg po BID, Lactulose 30mL po BID, Pentoxyifylline 400mg po 18h, Protonix 40mg po daily, Nystatin swish and swallow, Diflucan 100mg po daily, and Lasix 40mg po BID. He was also instructed on a low salt diet and fluid restriction. He now presents to the emergency room for worsening abdominal pain, decreased po intake, and confusion. He recently ran out of his lactulose about 6 days ago. Since he ran out of his Lactulose, he has been having worsening confusion and decreased appetite. His significant other, reports that he last ate a "real meal" on 09/13. Since that time, he has only been taking ensure. For the past week, he has also had intermittent nausea and vomiting with undigested food and whitish foam. He has not had any hematemesis. He denies abdominal pain. His significant other reports that his swelling has "went away" and that he has lost about 40lbs since his previous admission date. His last EGD was (08/26/17) ---> Ayala esophagitis, Portal gastropathy. Pathology with mucosal congestion in stomach antrum. CT Scan abdomen and pelvis (09/23/17)--> Cirrhotic appearing liver with splenomegaly and ascites indicating portal hypertension. Note is made of a recanalized umbilical vein. Overall amount of ascites within the abdomen is minimal. Examination is otherwise unremarkable. (Daya Reid) PFSH Past Medical History Liver cirrhosis Ascites Hepatic Encephalopathy Esophageal Varices Ayala esophagitis ETOH abuse Hepatitis C, Tx naive Past Surgical History EGD Paracentesis (Daya Reid) Coded Allergies: Sulfa (Sulfonamide Antibiotics) (Unverified Allergy, Severe, SWELLING TO HANDS, 09/23/17) penicillin V (Verified Allergy, Severe, VOMITING, 09/23/17) Medications Allergies Coded Allergies Type Severity Reaction Last Updated Verified Sulfa (Sulfonamide Antibiotics) Allergy Severe SWELLING TO HANDS 09/23/17 No penicillin V Allergy Severe VOMITING 09/23/17 Yes Active Scripts Medications Dose Route/Sig Max Daily Dose Days Date Category Dose Instructions Potassium Chloride ER (Potassium Chloride) 20 Meq Tab 20 Meq PO DAILY 09/01/17 Rx Lasix (Furosemide) 40 Mg Tab 40 Mg PO BID 09/01/17 Rx Folic Acid 1 Mg Tablet 1 Mg PO DAILY 09/01/17 Rx Pantoprazole (Pantoprazole Sodium) 40 Mg Tab 40 Mg PO DAILY 09/01/17 Rx [Lactulose Liq] 30 ML Syrp 30 Ml PO BID 09/01/17 Rx Aldactone (Spironolactone) 100 Mg Tab 100 Mg PO BID@09,18 09/01/17 Rx Propranolol (Propranolol HCl) 20 Mg Tab 20 Mg PO Q12HR 09/01/17 Rx Pentoxifylline ER (Pentoxifylline) 400 Mg Tab 400 Mg PO Q8HR 09/01/17 Rx Nystatin Liq 100,000 unit/ml Susp 5 Ml SWISH-SWAL QID 09/01/17 Rx Xifaxan (Rifaximin) 550 Mg Tab 550 Mg PO BID 09/01/17 Rx Fluconazole 100 Mg Tab 100 Mg PO DAILY 08/27/17 Rx Take one tab daily until gone. Family History Father had colon cancer in his 60's Mother had HTN Social History Tobacco: 2 cigarettes a day, 1PPD x 10+ years EtOH: 10-12 years heavy use, one year reduced use (3 glasses daily mixed drinks) - now quit on 08/22/17 before last hospitalization Illicit: denies (Daya Reid) Review of Systems Constitutional: COMPLAINS OF: Fatigue, Weight loss, Change in appetite, DENIES : Fever, Chills Respiratory: DENIES: Cough Cardiovascular: DENIES: Chest pain Gastrointestinal: COMPLAINS OF: Nausea, Vomiting, DENIES: Abdominal pain, Black stools, Bloody stools, Swelling of Abdomen, Heartburn, Hematemesis Psychiatric: COMPLAINS OF: Confusion ROS Poor historian (Daya Reid) GI Exam Vitals I&O Vital Signs Date Time Temp Pulse Resp B/P (MAP) Pulse Ox O2 Delivery O2 Flow Rate FiO2 09/24/17 04:00 95.8 56 18 113/70 (84) 97 09/24/17 04:00 95.8 56 18 113/70 (84) 97 09/24/17 00:00 97.1 65 17 116/66 (83) 96 09/23/17 20:00 99.2 78 17 114/62 (79) 95 09/23/17 16:42 65 16 115/75 (88) 98 09/23/17 14:18 98.3 66 16 111/68 (82) 98 Room Air 09/23/17 13:58 59 19 111/66 (81) 98 Room Air 09/23/17 13:58 66 19 96 Room Air 09/23/17 12:26 98.2 63 14 119/77 (91) 98 I/O 09/23/17 09/23/17 09/23/17 09/24/17 09/24/17 09/24/17 07:00 15:00 23:00 07:00 15:00 23:00 Intake Total 480 ml 458 ml Output Total 300 ml 200 ml Balance 180 ml 258 ml Intake Oral 480 ml IV Total 458 ml Output Urine Total 300 ml 200 ml # Voids 2 # Bowel Movements 0 Imaging Last Impressions Chest X-Ray 09/23/171403 Signed Impressions: Service Date/Time: Saturday, September 23, 2017 14:25 - CONCLUSION: No acute disease. Gus Roy Jr., MD Abdomen/Pelvis CT 09/23/171403 Signed Impressions: Service Date/Time: Saturday, September 23, 2017 15:31 - CONCLUSION: 1. Cirrhotic appearing liver with splenomegaly and ascites indicating portal hypertension. Note is made of a recanalized umbilical vein. Overall amount of ascites within the abdomen is minimal. 2. Examination is otherwise unremarkable. Hugh Nicolas MD Laboratory Test 09/23/17 12:57 09/23/17 13:05 09/23/17 14:18 09/24/17 06:55 White Blood Count 6.7 TH/MM3 Red Blood Count 4.04 MIL/MM3 Hemoglobin 13.5 GM/DL Hematocrit 40.0 % Mean Corpuscular Volume 99.0 FL Mean Corpuscular Hemoglobin 33.3 PG Mean Corpuscular Hemoglobin Concent 33.7 % Red Cell Distribution Width 20.4 % Platelet Count 108 TH/MM3 Mean Platelet Volume 9.0 FL Neutrophils (%) (Auto) 48.9 % Lymphocytes (%) (Auto) 32.9 % Monocytes (%) (Auto) 15.1 % Eosinophils (%) (Auto) 2.4 % Basophils (%) (Auto) 0.7 % Neutrophils # (Auto) 3.3 TH/MM3 Lymphocytes # (Auto) 2.2 TH/MM3 Monocytes # (Auto) 1.0 TH/MM3 Eosinophils # (Auto) 0.2 TH/MM3 Basophils # (Auto) 0.0 TH/MM3 CBC Comment DIFF FINAL Differential Comment Direct Bilirubin 3.7 MG/DL Ammonia 140 MCMOL/L 71 MCMOL/L Urine Color YELLOW Urine Turbidity CLEAR Urine pH 7.5 Urine Specific [place] 1.024 Urine Protein TRACE mg/dL Urine Glucose (UA) NEG mg/dL Urine Ketones TRACE mg/dL Urine Occult Blood NEG Urine Nitrite NEG Urine Bilirubin NEG Urine Urobilinogen 4.0 MG/DL Urine Leukocyte Esterase NEG Urine RBC LESS THAN 1 /hpf Urine WBC 1 /hpf Urine Hyaline Casts 1 /lpf Microscopic Urinalysis Comment CULT NOT INDICATED Prothrombin Time 15.4 SEC Prothromb Time International Ratio 1.4 RATIO Activated Partial Thromboplast Time 35.2 SEC Blood Urea Nitrogen 36 MG/DL Creatinine 1.54 MG/DL Random Glucose 144 MG/DL Total Protein 8.4 GM/DL Albumin 3.1 GM/DL Calcium Level 9.6 MG/DL Alkaline Phosphatase 139 U/L Aspartate Amino Transf (AST/SGOT) 81 U/L Alanine Aminotransferase (ALT/SGPT) 43 U/L Total Bilirubin 5.7 MG/DL Sodium Level 136 MEQ/L Potassium Level 5.3 MEQ/L Chloride Level 106 MEQ/L Carbon Dioxide Level 22.5 MEQ/L Anion Gap 8 MEQ/L Estimat Glomerular Filtration Rate 47 ML/MIN Test 09/24/17 07:03 White Blood Count 6.4 TH/MM3 Red Blood Count 3.79 MIL/MM3 Hemoglobin 12.7 GM/DL Hematocrit 37.9 % Mean Corpuscular Volume 100.0 FL Mean Corpuscular Hemoglobin 33.5 PG Mean Corpuscular Hemoglobin Concent 33.5 % Red Cell Distribution Width 19.9 % Platelet Count 73 TH/MM3 Mean Platelet Volume 8.6 FL Neutrophils (%) (Auto) 47.3 % Lymphocytes (%) (Auto) 31.2 % Monocytes (%) (Auto) 17.6 % Eosinophils (%) (Auto) 3.3 % Basophils (%) (Auto) 0.6 % Neutrophils # (Auto) 3.0 TH/MM3 Lymphocytes # (Auto) 2.0 TH/MM3 Monocytes # (Auto) 1.1 TH/MM3 Eosinophils # (Auto) 0.2 TH/MM3 Basophils # (Auto) 0.0 TH/MM3 CBC Comment AUTO DIFF Physical Examination HEENT: Normocephalic; atraumatic; no jaundice. CHEST: CTA, diminished bases. CARDIAC: RRR ABDOMEN: Soft, nondistended, nontender; hepatosplenomegaly; bowel sounds are present in all four quadrants. EXTREMITIES: No clubbing, cyanosis, or edema. SKIN: Normal; no rash; no jaundice. LIGHT TRUCK DRIVER: Lethargic, oriented to self and place only. (Daya Reid) Assessment and Plan Plan ASSESSMENT: - Hepatic Encephalopathy. Ran out of lactulose 6 days ago and has since had worsening confusion, lethargy, decreased po intake. Ammonia 140 on admission. He was restarted on Lactulose/Xifaxan and this is now 71. He is lethargic, but now oriented to self and place and is awake eating breakfast. - N/V, decreased appetite. EGD was (08/26/17)---> Ayala esophagitis, Portal gastropathy. Pathology with mucosal congestion in stomach antrum. CT Scan abdomen and pelvis (09/23/17)--> Cirrhotic appearing liver with splenomegaly and ascites indicating portal hypertension. Note is made of a recanalized umbilical vein. Overall amount of ascites within the abdomen is minimal. Examination is otherwise unremarkable. PPI. - GERD, ? Ayala esophagitis. Recent EGD as above. PPI, S/P Diflucan/ Nystatin. - Elevated LFTs/Liver cirrhosis, Alcoholic hepatitis. Denies any known hx of liver cirrhosis. Past ETOH abuse, quit drinking with last hospitalization. HCV Ab (+) in 2009. Genotype 1A, Viral load 146. FATEMEH neg. AMA < 20.0. ASMA neg. AFP 3.6. Alpha 1 antitrypsin 141. Ceruloplasmin 29. Ferritin 414, Iron saturation 55.4% DF is 49.560. He was recently hospitalized with alcoholic hepatitis. His LFTs have actually improved from his last hospitalization. Pentoxifylline. Inderal, Lactulose, Xifaxan, Lasix, Spironolactone - Ascites. Much improved with lasix/spironolactone. - HCV Ab (+) . Genotype 1A. Viral load is 146. Outpt follow up - Anemia. 12.7/37.9. Denies any obvious GI blood loss. Never had egd/ colonoscopy. Father had colon cancer in his 60's. - Thrombocytopenia. plt 73,000. - FERMÍN. Improved. PLAN: - 2 gram sodium diet - Cont. Lactulose QID - Cont. Xifaxan - Cont. Protonix - Spironolactone 25mg po daily - Lasix 20mg po daily - Protonix 40mg po daily - D/C Diflucan, Nystatin - Intake and output - CBC, CMP, Ammonia - Supportive care - Further recommendations to follow based on results of above - Pt seen and examined by Dr. Mcclain and myself and this note is written on his behalf (Daya Reid) Physician Comments Patient seen and examined Agree with above Continue with current supportive care Monitor labs We will plan for EGD and a colonoscopy when a little more stable Emphasizes was again made to continue to abstain from alcohol (Jorge Luis Mcclain MD) Daya Reid Sep 24, 2017 08:12 Jorge Luis Mcclain MD Sep 24, 2017 21:39
[2017-09-24 08:13] LABS: ALKALINE PHOSPHATASE 117 U/L (45-117); ALT (GPT) 43 U/L (12-78); ANION GAP 10 MEQ/L (5-15); AST (GOT) 77 U/L (15-37); BICARBONATE 18.8 MEQ/L (21.0-32.0); BLOOD UREA NITROGEN 21 MG/DL (7-18); CHLORIDE 108 MEQ/L (98-107); GLOMERULAR FILTRATION RATE 78 ML/MIN (>89); POTASSIUM 4.6 MEQ/L (3.5-5.1); SODIUM (NA) 137 MEQ/L (136-145); TOTAL BILIRUBIN ADULT 6.1 MG/DL (0.2-1.0)
[2017-09-24] MEDS: FOLIC ACID 1 MG TAB PO SCH (08:34)
[2017-09-24] MEDS: PROPRANOLOL HCL 20 MG TAB PO SCH ×2 (08:34→20:54)
[2017-09-24] MEDS: RIFAXIMIN 550 MG TAB PO SCH ×2 (08:34→20:55)
[2017-09-24] MEDS: NYSTATIN SUSP 500,000 U/5 ML CUP SWISH-SWAL SCH (08:34)
[2017-09-24] MEDS: LACTULOSE SYRUP 20 GM/30 ML CUP PO SCH ×4 (08:34→20:55)
[2017-09-24] MEDS: PANTOPRAZOLE SOD 40 MG DELAYED RELEASE TAB PO SCH (08:34)
[2017-09-24] MEDS: SODIUM CHLORIDE 0.9% FLUSH 10 ML FLUSH IV FLUSH SCH ×2 (08:35→20:53)
[2017-09-24] MEDS ORDERED: FLUCONAZOLE 100 MG TAB PO SCH (09:00)
[2017-09-24] MEDS ORDERED: SPIRONOLACTONE 100 MG TAB PO SCH (09:00)
[2017-09-24 09:24] LABS: BURR CELLS 1+ (NORMAL); PLATELET ESTIMATE SMEAR LOW (NORMAL); PLATELET MORPHOLOGY NORMAL (NORMAL); SCAN/DIFF AUTO DIFF CONFIRMED
[2017-09-24 09:25] LABS: ACANTHOCYTES OCC (NORMAL)
[2017-09-24] MEDS ORDERED: INFLUENZA VIRUS VACCINE (QUADRIVALENT) 0.5 ML SYR IM ONE (10:00)
[2017-09-24] MEDS ORDERED: PNEUMOCOCCAL POLYVALENT INJ 25 MCG/0.5 ML SYR IM ONE (10:00)
[2017-09-24] MEDS: SPIRONOLACTONE 25 MG TAB PO SCH (10:55)
--- NOTE | 2017-09-24 14:28 | EKG ---
Date Performed: 09/23/2017 Time Performed: 14:33:01 PTAGE: 57 years EKG: Sinus rhythm POSSIBLE LEFT VENTRICULAR HYPERTROPHY ABNORMAL ECG PREVIOUS TRACING : 09/23/2017 13.10 Compared to prior tracing no significant change DOCTOR: Piyush Beck Interpretating Date/Time 09/24/2017 14:21:21
--- NOTE | 2017-09-24 14:30 | EKG ---
Date Performed: 09/23/2017 Time Performed: 13:10:11 PTAGE: 57 years EKG: SINUS BRADYCARDIA POSSIBLE LATERAL MYOCARDIAL INFARCTION ABNORMAL ECG PREVIOUS TRACING : 08/23/2017 20.55 Compared to prior tracing no significant change DOCTOR: Piyush Beck Interpretating Date/Time 09/24/2017 14:23:26
--- NOTE | 2017-09-24 17:25 | HHI.PR ---
Subjective Remarks Patient awake and alert. c/o lack of appetite. Denies cough, chest pain or sob. Denies diarrhea. Objective Vitals Vital Signs Date Time Temp Pulse Resp B/P (MAP) Pulse Ox O2 Delivery O2 Flow Rate FiO2 09/24/17 12:00 98.1 63 18 119/67 (84) 98 09/24/17 08:00 98.0 59 18 110/64 (79) 98 09/24/17 04:00 95.8 56 18 113/70 (84) 97 09/24/17 04:00 95.8 56 18 113/70 (84) 97 09/24/17 00:00 97.1 65 17 116/66 (83) 96 09/23/17 20:00 99.2 78 17 114/62 (79) 95 I/O 09/23/17 09/23/17 09/23/17 09/24/17 09/24/17 09/24/17 07:00 15:00 23:00 07:00 15:00 23:00 Intake Total 480 ml 458 ml Output Total 300 ml 200 ml Balance 180 ml 258 ml Intake Oral 480 ml IV Total 458 ml Output Urine Total 300 ml 200 ml # Voids 2 # Bowel Movements 0 Result Diagram: 09/24/17 0703 09/24/17 0703 Imaging Last Impressions Chest X-Ray 09/23/171403 Signed Impressions: Service Date/Time: Saturday, September 23, 2017 14:25 - CONCLUSION: No acute disease. Gus Roy Jr., MD Abdomen/Pelvis CT 09/23/171403 Signed Impressions: Service Date/Time: Saturday, September 23, 2017 15:31 - CONCLUSION: 1. Cirrhotic appearing liver with splenomegaly and ascites indicating portal hypertension. Note is made of a recanalized umbilical vein. Overall amount of ascites within the abdomen is minimal. 2. Examination is otherwise unremarkable. Hugh Nicolas MD Objective Remarks GENERAL: SKIN: Warm and dry. HEAD: Atraumatic. Normocephalic. EYES: Pupils equal and round. No scleral icterus. No injection or drainage. ENT: No nasal bleeding or discharge. Mucous membranes pink and moist. NECK: Trachea midline. No JVD. CARDIOVASCULAR: Regular rate and rhythm. RESPIRATORY: No accessory muscle use. Clear to auscultation. Breath sounds equal bilaterally. GASTROINTESTINAL: Abdomen soft, non-tender, nondistended. Hepatic and splenic margins not palpable. MUSCULOSKELETAL: Extremities without clubbing, cyanosis, or edema. No obvious deformities. NEUROLOGICAL: Awake and alert. No obvious cranial nerve deficits. Motor grossly within normal limits. Five out of 4 muscle strength in the arms and legs. Normal speech but sluggish. PSYCHIATRIC: Appropriate mood and affect; insight and judgment normal. Procedures none Medications and IVs Current Medications Medications (Trade) Dose Ordered Sig/Trevor Route Start Time Stop Time Status Last Admin (NS Flush) 2 ml UNSCH PRN IV FLUSH 09/23/17 16:00 (NS Flush) 2 ml BID IV FLUSH 09/23/17 21:00 09/24/17 08:35 (Narcan Inj) 0.4 mg UNSCH PRN IV PUSH 09/23/17 16:00 Sodium Chloride 1,000 ml @ 100 mls/hr Q10H IV 09/23/17 19:45 09/24/17 15:45 (Folate) 1 mg DAILY PO 09/24/17 09:00 09/24/17 08:34 (Protonix) 40 mg DAILY PO 09/24/17 09:00 09/24/17 08:34 (TRENtal SR) 400 mg Q8HR PO 09/23/17 22:00 09/24/17 05:39 (Inderal) 20 mg Q12HR PO 09/23/17 21:00 09/24/17 08:34 (Xifaxan) 550 mg BID PO 09/23/17 21:00 09/24/17 08:34 (Lactulose Liq) 30 ml QID PO 09/23/17 21:00 09/24/17 13:23 (Lasix) 20 mg DAILY PO 09/25/17 09:00 (Aldactone) 25 mg DAILY PO 09/24/17 10:15 09/24/17 10:55 A/P Problem List: (1) Hepatic encephalopathy ICD Code: K72.90 - Hepatic failure, unspecified without coma Status: Acute Plan: Ran out of lactulose 6 days ago and has since had worsening confusion, lethargy, decreased po intake. Ammonia 140 on admission. He was restarted on Lactulose/Xifaxan and this is now 71. Seems to be improving - Patient AAOx3 (2) Severe protein-calorie malnutrition ICD Code: E43 - Unspecified severe protein-calorie malnutrition Plan: With decreased oral intake. Consult dietitian if not previously done. (3) Thrombocytopenia ICD Code: D69.6 - Thrombocytopenia, unspecified Plan: Due to liver cirrhosis and hypersplenism. Platelets trending down from 108k to 73k. (4) Anemia ICD Code: D64.9 - Anemia, unspecified Status: Chronic Plan: Likeluy due to liver disease. Hemoglobin stable. continue to monitor hemoglobin trend. (5) Decreased appetite ICD Code: R63.0 - Anorexia Status: Acute Plan: Consult dietitian as above. (6) Cirrhosis of liver ICD Code: K74.60 - Unspecified cirrhosis of liver Status: Acute Plan: GI following. Continue to monitor LFT's. AST mildly elevated, ALT normal. Pentoxifylline. Inderal, Lactulose, Xifaxan, Lasix, Spironolactone (7) Ayala esophagitis ICD Code: B37.81 - Candidal esophagitis Plan: EGD was (08/26/17)---> Ayala esophagitis, Portal gastropathy. Pathology with mucosal congestion in stomach antrum. PPI, S/P Diflucan/Nystatin. (8) Hyperglycemia ICD Code: R73.9 - Hyperglycemia, unspecified Plan: Likely stress related. check hemoglobin A1c. Blood sugars improved. (9) Hyperkalemia ICD Code: E87.5 - Hyperkalemia Plan: K 5.3 on admission. Likely 2/2 impaired renal excretion 2/2 FERMÍN due to dehydration. Resolved after IV fluids and improved GFR. (10) FERMÍN (acute kidney injury) ICD Code: N17.9 - Acute kidney failure, unspecified Plan: Improving. Likely prerenal azotemia. Creatinine trending down with Iv fluids. Continue to monitor BUN/Creatinine. Assessment and Plan GI prophylaxis: PPI DVT Prophylaxis: SCD's Discharge Planning Possible Dc in am. Needs C. SSI pending. Problem Qualifiers (1) Anemia: Qualified Codes: D64.89 - Other specified anemias (2) Cirrhosis of liver: Qualified Codes: K70.30 - Alcoholic cirrhosis of liver without ascites Jose Bush MD Sep 24, 2017 17:25
[2017-09-25] VITALS: BP 102/61; PULSE 64; RESP 17; TEMP 98.2; O2SAT 95
[2017-09-25 04:00] VITALS: BP 115/66; PULSE 60; RESP 17; TEMP 97.7; O2SAT 99
[2017-09-25] MEDS: PENTOXIFYLLINE 400 MG CONTROLLED RELEASE TAB PO SCH ×2 (05:20→13:23)
[2017-09-25] MEDS: SODIUM CHLOR 0.9% 1000 ML INJ 1,000 ML IV SCH (05:23)
[2017-09-25 07:00] LABS: AUTOMATED NEUTROPHIL # 2.5 TH/MM3 (1.8-7.7); BASOPHIL # 0.1 TH/MM3 (0-0.2); EOSINOPHIL # 0.3 TH/MM3 (0-0.4); HEMATOCRIT 36.3 % (39.0-51.0); LYMPH % 31.2 % (9.0-44.0); LYMPHOCYTE # 1.7 TH/MM3 (1.0-4.8); MEAN CELL VOLUME 99.6 FL (80.0-100.0); MEAN CORPUSCULAR HEMOGLOBIN 33.7 PG (27.0-34.0); MEAN CORPUSCULAR HGB CONC 33.8 % (32.0-36.0); MONO % 17.7 % (0.0-8.0); NEUT % 45.1 % (16.0-70.0); PLATELET COUNT 64 TH/MM3 (150-450); RED BLOOD COUNT 3.65 MIL/MM3 (4.50-5.90); RED CELL DISTRIBUTION WIDTH 19.8 % (11.6-17.2); WHITE BLOOD COUNT 5.6 TH/MM3 (4.0-11.0)
[2017-09-25 07:02] LABS: ALT (GPT) 44 U/L (12-78); ANION GAP 9 MEQ/L (5-15); AST (GOT) 72 U/L (15-37); BICARBONATE 18.8 MEQ/L (21.0-32.0); BLOOD UREA NITROGEN 13 MG/DL (7-18); CHLORIDE 109 MEQ/L (98-107); GLOMERULAR FILTRATION RATE 94 ML/MIN (>89); MAGNESIUM 1.9 MG/DL (1.5-2.5); POTASSIUM 3.8 MEQ/L (3.5-5.1); SODIUM (NA) 137 MEQ/L (136-145)
[2017-09-25 07:05] LABS: ALKALINE PHOSPHATASE 129 U/L (45-117); TOTAL BILIRUBIN ADULT 5.6 MG/DL (0.2-1.0)
[2017-09-25 07:12] LABS: HEMO FLAGS AUTO DIFF
[2017-09-25 08:00] VITALS: BP 110/58; PULSE 59; RESP 18; TEMP 97.7; O2SAT 95
[2017-09-25 08:47] LABS: ACANTHOCYTES OCC (NORMAL); OVALOCYTES 1+ (NORMAL)
[2017-09-25 08:48] LABS: PLATELET ESTIMATE SMEAR LOW (NORMAL); PLATELET MORPHOLOGY NORMAL (NORMAL); SCAN/DIFF AUTO DIFF CONFIRMED
[2017-09-25] MEDS ORDERED: FUROSEMIDE 20 MG TAB PO SCH (09:00)
[2017-09-25] MEDS: SODIUM CHLORIDE 0.9% FLUSH 10 ML FLUSH IV FLUSH SCH (09:00)
[2017-09-25] MEDS: PROPRANOLOL HCL 20 MG TAB PO SCH ×2 (09:00→09:28)
[2017-09-25] MEDS: RIFAXIMIN 550 MG TAB PO SCH (09:28)
[2017-09-25] MEDS: FOLIC ACID 1 MG TAB PO SCH (09:28)
[2017-09-25] MEDS: PANTOPRAZOLE SOD 40 MG DELAYED RELEASE TAB PO SCH (09:28)
[2017-09-25] MEDS: LACTULOSE SYRUP 20 GM/30 ML CUP PO SCH ×2 (09:28→11:58)
[2017-09-25] MEDS: SPIRONOLACTONE 25 MG TAB PO SCH (09:29)
[2017-09-25 12:00] VITALS: BP 119/82; PULSE 55; RESP 17; TEMP 96.2; O2SAT 100
[2017-09-25] MEDS ORDERED: Lactulose Liq PO (15:38)
[2017-09-25] MEDS ORDERED: XIFA550T4 PO (15:38)
[2017-09-25] MEDS ORDERED: PENT400T PO (15:38)
[2017-09-25] MEDS ORDERED: PROP20TA3 PO (15:38)
[2017-09-25] MEDS ORDERED: PANT40TA3 PO (15:38)
[2017-09-25] MEDS ORDERED: ALDA100T PO (15:38)
[2017-09-25] MEDS ORDERED: FURO20TA PO (15:38)
--- NOTE | 2017-09-25 15:38 | HHI.GIFU ---
Subjective Remarks Up in bathroom. ALert and oriented. Going home today. No active bleeding. No abdominal pain. (Daya Reid) Objective Vitals I&O Vital Signs Date Time Temp Pulse Resp B/P (MAP) Pulse Ox O2 Delivery O2 Flow Rate FiO2 09/25/17 12:00 96.2 55 17 119/82 (94) 100 09/25/17 08:00 97.7 59 18 110/58 (75) 95 09/25/17 04:00 97.7 60 17 115/66 (82) 99 09/25/17 00:00 98.2 64 17 102/61 (75) 95 09/24/17 20:11 56 09/24/17 20:00 98.9 68 17 108/68 (81) 95 09/24/17 16:00 98.2 62 18 117/65 (82) 97 I/O 09/24/17 09/24/17 09/24/17 09/25/17 09/25/17 09/25/17 07:00 15:00 23:00 07:00 15:00 23:00 Intake Total 458 ml 1550 ml 1240 ml Output Total 200 ml 600 ml 200 ml Balance 258 ml 950 ml 1040 ml Intake Oral 550 ml 240 ml IV Total 458 ml 1000 ml 1000 ml Output Urine Total 200 ml 600 ml 200 ml # Voids 2 3 5 # Bowel Movements 2 1 Laboratory Laboratory Tests Test 09/25/17 06:12 White Blood Count 5.6 Red Blood Count 3.65 Hemoglobin 12.3 Hematocrit 36.3 Mean Corpuscular Volume 99.6 Mean Corpuscular Hemoglobin 33.7 Mean Corpuscular Hemoglobin Concent 33.8 Red Cell Distribution Width 19.8 Platelet Count 64 Mean Platelet Volume 8.9 Neutrophils (%) (Auto) 45.1 Lymphocytes (%) (Auto) 31.2 Monocytes (%) (Auto) 17.7 Eosinophils (%) (Auto) 5.0 Basophils (%) (Auto) 1.0 Neutrophils # (Auto) 2.5 Lymphocytes # (Auto) 1.7 Monocytes # (Auto) 1.0 Eosinophils # (Auto) 0.3 Basophils # (Auto) 0.1 CBC Comment AUTO DIFF Differential Comment AUTO DIFF CONFIRMED Platelet Estimate LOW Platelet Morphology Comment NORMAL Ovalocytes 1+ Acanthocytes OCC Blood Urea Nitrogen 13 Creatinine 0.85 Random Glucose 101 Total Protein 7.7 Albumin 2.6 Calcium Level 8.7 Phosphorus Level 2.3 Magnesium Level 1.9 Alkaline Phosphatase 129 Aspartate Amino Transf (AST/SGOT) 72 Alanine Aminotransferase (ALT/SGPT) 44 Total Bilirubin 5.6 Sodium Level 137 Potassium Level 3.8 Chloride Level 109 Carbon Dioxide Level 18.8 Anion Gap 9 Estimat Glomerular Filtration Rate 94 Ammonia 43 Imaging Last Impressions Chest X-Ray 09/23/17 1404 Signed Impressions: Service Date/Time: Saturday, September 23, 2017 14:25 - CONCLUSION: No acute disease. Gus Roy Jr., MD Abdomen/Pelvis CT 09/23/17 1404 Signed Impressions: Service Date/Time: Saturday, September 23, 2017 15:31 - CONCLUSION: 1. Cirrhotic appearing liver with splenomegaly and ascites indicating portal hypertension. Note is made of a recanalized umbilical vein. Overall amount of ascites within the abdomen is minimal. 2. Examination is otherwise unremarkable. Hugh Nicolas MD Physical Exam HEENT: Normocephalic; atraumatic; + jaundice. CHEST: Resp. even/unlabored. EXTREMITIES: No clubbing, cyanosis, or edema. SKIN: Normal; no rash; no jaundice. [employer]: No focal deficits; alert and oriented times three. Limited, going to restroom. (Daya Reid) Assessment and Plan Plan ASSESSMENT: - Hepatic Encephalopathy. Ran out of lactulose 6 days ago and has since had worsening confusion, lethargy, decreased po intake. Ammonia 140 on admission, but now much improved and ammonia level is now 43. Lactulose/Xifaxan - N/V, decreased appetite. EGD was (08/26/17)---> Ayala esophagitis, Portal gastropathy. Pathology with mucosal congestion in stomach antrum. CT Scan abdomen and pelvis (09/23/17)--> Cirrhotic appearing liver with splenomegaly and ascites indicating portal hypertension. Note is made of a recanalized umbilical vein. Overall amount of ascites within the abdomen is minimal. Examination is otherwise unremarkable. PPI. Improved. - GERD, ? Ayala esophagitis. Recent EGD as above. PPI, S/P Diflucan/ Nystatin. - Elevated LFTs/Liver cirrhosis, Alcoholic hepatitis. Denies any known hx of liver cirrhosis. Past ETOH abuse, quit drinking with last hospitalization. HCV Ab (+) in 2009. Genotype 1A, Viral load 146. FATEMEH neg. AMA < 20.0. ASMA neg. AFP 3.6. Alpha 1 antitrypsin 141. Ceruloplasmin 29. Ferritin 414, Iron saturation 55.4% DF is 49.560. He was recently hospitalized with alcoholic hepatitis. His LFTs have actually improved from his last hospitalization. T. Bili 5.6, AST 72, ALT 44, Alk Phosph 129. Pentoxifylline. Inderal, Lactulose, Xifaxan, Lasix, Spironolactone - Ascites. Lasix/spironolactone. - HCV Ab (+) . Genotype 1A. Viral load is 146. Outpt follow up - Anemia. 12.3/36.3. Denies any obvious GI blood loss. Never had egd/ colonoscopy. Father had colon cancer in his 60's. - Thrombocytopenia. plt 64,000. - FERMÍN. Improved. PLAN: - Pt is being discharged home today - 2 gram sodium diet - Cont. Lactulose QID - Cont. Xifaxan - Cont. Protonix - Spironolactone 25mg po daily - Lasix 20mg po daily - Protonix 40mg po daily - No ETOH - FU ROMERO in 2 weeks - Will need egd/colonoscopy as outpatient - Pt seen and examined by Dr. Mcclain and myself and this note is written on his behalf (Daya Reid) Physician Comments Patient seen and examined Agree with above Continue with current supportive care Monitor labs Follow-up with GI post discharge (Jorge Luis Mcclain MD) Daya Reid Sep 25, 2017 15:38 Jorge Luis Mcclain MD Sep 25, 2017 18:26
--- NOTE | 2017-09-25 15:40 | HHI.DCPOC ---
Discharge Care Plan Diagnosis: (1) FERMÍN (acute kidney injury) (2) Severe protein-calorie malnutrition (3) Thrombocytopenia (4) Hyperglycemia (5) Cirrhosis of liver (6) Hepatic encephalopathy Goals to Promote Your Health * To prevent worsening of your condition and complications * To maintain your health at the optimal level Directions to Meet Your Goals Take your medications as prescribed Follow your dietary instruction Follow activity as directed Keep your appointments as scheduled Take your immunizations and boosters as scheduled If your symptoms worsen call your PCP, if no PCP go to Urgent Care Center or Emergency Room Smoking is Dangerous to Your Health. Avoid second hand smoke Call the 24-hour hour crisis hotline for domestic abuse at Jose Bush MD Sep 25, 2017 15:40
[2017-09-25] MEDS ORDERED: BACI500O9 TOPICAL (15:41)
--- NOTE | 2017-09-25 15:44 | HHI.FF ---
Face to Face Verification Diagnosis: (1) Cirrhosis of liver (2) Anemia (3) Thrombocytopenia (4) Severe protein-calorie malnutrition Physical Therapy Order: Improve ambulation, Strength and gait training Home Health Nursing Order: Signs/symptoms of disease process Nursing assessment with vital signs I have seen patient Don Salazar on 09/25/17. My clinical findings support the need for the requested home health care services because: Ltd mobility - disease progression Med compliance is questionable Need for psychosocial assistance I certify that my clinical findings support that this patient is homebound because: Unsteady gait/balance Unsafe to leave home unassisted Need for psychosocial assistance Unable to use public transportation Jose Bush MD Sep 25, 2017 15:44
--- NOTE | 2017-09-25 15:54 | HHI.DS ---
Discharge Summary Admission Date Sep 23, 2017 at 15:52 Discharge Date: Sep 25, 2017 Admitting Diagnosis hepatic encephalopathy; liver cirrhosis (1) Hepatic encephalopathy ICD Code: K72.90 - Hepatic failure, unspecified without coma Diagnosis: Principal Status: Resolved (2) Severe protein-calorie malnutrition ICD Code: E43 - Unspecified severe protein-calorie malnutrition Diagnosis: Principal Status: Acute (3) Thrombocytopenia ICD Code: D69.6 - Thrombocytopenia, unspecified Diagnosis: Secondary Status: Chronic (4) Anemia ICD Code: D64.9 - Anemia, unspecified Diagnosis: Secondary Status: Chronic (5) Decreased appetite ICD Code: R63.0 - Anorexia Diagnosis: Principal Status: Resolved (6) Cirrhosis of liver ICD Code: K74.60 - Unspecified cirrhosis of liver Diagnosis: Principal Status: Acute (7) Hyperglycemia ICD Code: R73.9 - Hyperglycemia, unspecified Diagnosis: Principal Status: Resolved (8) Hyperkalemia ICD Code: E87.5 - Hyperkalemia Diagnosis: Principal Status: Resolved (9) FERMÍN (acute kidney injury) ICD Code: N17.9 - Acute kidney failure, unspecified Diagnosis: Principal Status: Resolved Procedures none Brief History - From Admission History from patient, at the bedside, ER nurse practitioner to medication, and review of medical records. Patient is extremely poor historian. He would answer yes or no but looks quite sleepy and just wanted to go back to sleep. Most of the history is provided by the who is at the bedside. not eating or drinking for 4 days no appetitie was admitted here for 9 days- and dc on 09/01/17 pt c/o pain in abdomen all over also is confused since dc home from hospital confused at time of interview ran out of lactulose and nystatin swish and swallow was shaking as well today - chills temp was 95,6 no coffee color but was nauseous vomited only ensure, no blood has decresed urination but no blood CBC/BMP: 09/25/17 0612 09/25/17 0612 Significant Findings Laboratory Tests Test 09/23/17 12:57 09/23/17 13:05 09/23/17 14:18 09/24/17 06:55 Red Blood Count 4.04 MIL/MM3 (4.50-5.90) Red Cell Distribution Width 20.4 % (11.6-17.2) Platelet Count 108 TH/MM3 (150-450) Monocytes (%) (Auto) 15.1 % (0.0-8.0) Monocytes # (Auto) 1.0 TH/MM3 (0-0.9) Direct Bilirubin 3.7 MG/DL (0.0-0.2) Ammonia 140 MCMOL/L (11-32) 71 MCMOL/L (11-32) Urine Ketones TRACE mg/dL (NEG) Urine Urobilinogen 4.0 MG/DL (LESS THAN Prothrombin Time 15.4 SEC (9.8-11.6) Activated Partial Thromboplast Time 35.2 SEC (24.3-30.1) Blood Urea Nitrogen 36 MG/DL (7-18) Creatinine 1.54 MG/DL (0.60-1.30) Random Glucose 144 MG/DL (74-106) Total Protein 8.4 GM/DL (6.4-8.2) Albumin 3.1 GM/DL (3.4-5.0) Alkaline Phosphatase 139 U/L (45-117) Aspartate Amino Transf (AST/SGOT) 81 U/L (15-37) Total Bilirubin 5.7 MG/DL (0.2-1.0) Potassium Level 5.3 MEQ/L (3.5-5.1) Estimat Glomerular Filtration Rate 47 ML/MIN (>89) Test 09/24/17 07:03 09/25/17 06:12 Red Blood Count 3.79 MIL/MM3 (4.50-5.90) 3.65 MIL/MM3 (4.50-5.90) Hemoglobin 12.7 GM/DL (13.0-17.0) 12.3 GM/DL (13.0-17.0) Hematocrit 37.9 % (39.0-51.0) 36.3 % (39.0-51.0) Red Cell Distribution Width 19.9 % (11.6-17.2) 19.8 % (11.6-17.2) Platelet Count 73 TH/MM3 (150-450) 64 TH/MM3 (150-450) Monocytes (%) (Auto) 17.6 % (0.0-8.0) 17.7 % (0.0-8.0) Monocytes # (Auto) 1.1 TH/MM3 (0-0.9) 1.0 TH/MM3 (0-0.9) Platelet Estimate LOW (NORMAL) LOW (NORMAL) [place] Cells 1+ (NORMAL) Blood Urea Nitrogen 21 MG/DL (7-18) Albumin 2.8 GM/DL (3.4-5.0) 2.6 GM/DL (3.4-5.0) Aspartate Amino Transf (AST/SGOT) 77 U/L (15-37) 72 U/L (15-37) Total Bilirubin 6.1 MG/DL (0.2-1.0) 5.6 MG/DL (0.2-1.0) Chloride Level 108 MEQ/L (98-107) 109 MEQ/L (98-107) Carbon Dioxide Level 18.8 MEQ/L (21.0-32.0) 18.8 MEQ/L (21.0-32.0) Estimat Glomerular Filtration Rate 78 ML/MIN (>89) Eosinophils (%) (Auto) 5.0 % (0.0-4.0) Ovalocytes 1+ (NORMAL) Phosphorus Level 2.3 MG/DL (2.5-4.9) Alkaline Phosphatase 129 U/L (45-117) Ammonia 43 MCMOL/L (11-32) Imaging Last Impressions Chest X-Ray 09/23/17 1404 Signed Impressions: Service Date/Time: Saturday, September 23, 2017 14:25 - CONCLUSION: No acute disease. Gus Roy Jr., MD Abdomen/Pelvis CT 09/23/17 1404 Signed Impressions: Service Date/Time: Saturday, September 23, 2017 15:31 - CONCLUSION: 1. Cirrhotic appearing liver with splenomegaly and ascites indicating portal hypertension. Note is made of a recanalized umbilical vein. Overall amount of ascites within the abdomen is minimal. 2. Examination is otherwise unremarkable. Hugh Nicolas MD PE at Discharge GENERAL: SKIN: Warm and dry. HEAD: Atraumatic. Normocephalic. EYES: Pupils equal and round. No scleral icterus. No injection or drainage. ENT: No nasal bleeding or discharge. Mucous membranes pink and moist. NECK: Trachea midline. No JVD. CARDIOVASCULAR: Regular rate and rhythm. RESPIRATORY: No accessory muscle use. Clear to auscultation. Breath sounds equal bilaterally. GASTROINTESTINAL: Abdomen soft, non-tender, nondistended. Hepatic and splenic margins not palpable. MUSCULOSKELETAL: Extremities without clubbing, cyanosis, or edema. No obvious deformities. NEUROLOGICAL: Awake and alert. No obvious cranial nerve deficits. Motor grossly within normal limits. Five out of 4 muscle strength in the arms and legs. Normal speech but sluggish. PSYCHIATRIC: Appropriate mood and affect; insight and judgment normal. Pt update on day of discharge Patient denies cp/sob. appetite better. AAOx3. c/o diarrhea. Denies cp/sob. HAs some exoriations in left ear and left lower leg for which I will RX bacitracin cream. Hospital Course (1) Hepatic encephalopathy Ran out of lactulose 6 days ago and has since had worsening confusion, lethargy , decreased po intake. Ammonia 140 on admission. He was restarted on Lactulose/Xifaxan and aamonia came down to 43 with resolution of encephalopathy. Seems to be improving - Patient AAOx3 (2) Severe protein-calorie malnutrition With decreased oral intake. Consult dietitian if not previously done. (3) Thrombocytopenia Due to liver cirrhosis and hypersplenism. Platelets trending down from 108k to 73k. (4) Anemia Likely due to liver disease. Hemoglobin stable. continue to monitor hemoglobin trend. (5) Decreased appetite Consult dietitian as above. (6) Cirrhosis of liver Plan: GI consulted. Continue to monitor LFT's. AST mildly elevated, ALT normal. Pentoxifylline. Inderal, Lactulose, Xifaxan, Lasix, Spironolactone continued (7) Ayala esophagitis EGD was (08/26/17)---> Ayala esophagitis, Portal gastropathy. Pathology with mucosal congestion in stomach antrum. PPI, S/P Diflucan/Nystatin treatment - no further symptoms. (8) Hyperglycemia Likely stress related. check hemoglobin A1c. Blood sugars improved. (9) Hyperkalemia K 5.3 on admission. Likely 2/2 impaired renal excretion 2/2 FERMÍN due to dehydration. Resolved after IV fluids and improved GFR. (10) FERMÍN (acute kidney injury) Improving. Likely prerenal azotemia. Creatinine trending down with Iv fluids. Continue to monitor BUN/Creatinine. GI prophylaxis: PPI DVT Prophylaxis: SCD's Pt Condition on Discharge: Stable Discharge Disposition: Disch w/ Home Health Serv Discharge Time: > 30 minutes Discharge Instructions DIET: Follow Instructions for: Heart Healthy Diet Activities you can perform: Regular-No Restrictions Follow up Referrals: PCP Follow-up New Medications: Bacitracin Topical (Bacitracin Topical) 500 Unit/Gm Oint 1 APPLIC TOPICAL BID for Infection, #30 GM 0 Refills Furosemide (Furosemide) 20 Mg Tab 20 MG PO DAILY for cirrhosis, #31 TAB 3 Refills Continued Medications: Folic Acid (Folic Acid) 1 Mg Tablet 1 MG PO DAILY, #90 TAB Pantoprazole (Pantoprazole) 40 Mg Tab 40 MG PO DAILY for gi protection, #60 TAB (This prescription has been renewed) Pentoxifylline ER (Pentoxifylline ER) 400 Mg Tab 400 MG PO Q8HR for cirrhosis, #60 TAB 2 Refills (This prescription has been renewed) Potassium Chloride ER (Potassium Chloride ER) 20 Meq Tab 20 MEQ PO DAILY for Electrolyte Replacement, #30 TAB 0 Refills Propranolol (Propranolol) 20 Mg Tab 20 MG PO Q12HR for cirrhosis, #60 TAB 2 Refills (This prescription has been renewed) Rifaximin (Xifaxan) 550 Mg Tab 550 MG PO BID for cirrhosis, #60 TAB 2 Refills (This prescription has been renewed) Spironolactone (Aldactone) 100 Mg Tab 100 MG PO BID@09,18 for cirrhosis, #60 TAB 2 Refills (This prescription has been renewed) [Lactulose Liq] () 30 ML SYRP 30 ML PO BID for elevated ammonia, #1 BOTTLE 2 Refills (This prescription has been renewed) Discontinued Medications: Fluconazole (Fluconazole) 100 Mg Tab 100 MG PO DAILY for Infection, #21 TAB 0 Refills Take one tab daily until gone. Furosemide (Lasix) 40 Mg Tab 40 MG PO BID, #60 TAB 0 Refills Nystatin Liq (Nystatin Liq) 100,000 unit/ml Susp 5 ML SWISH-SWAL QID, #100 ML Jose Bush MD Sep 25, 2017 15:54
== END 2017-09-25 17:41 | disposition home health service (06) | DRG 441 ==
LOC: NEPC 12:20 → NEDA 15:52 → N07A 16:58
PROVIDERS: ADMIT Hospitalist; ATTEND Hospitalist
DX: K72.90 Hepatic failure, unspecified without coma (principal); E43 Unspecified severe protein-calorie malnutrition; N17.9 Acute kidney failure, unspecified; B37.81 Candidal esophagitis; E72.20 Disorder of urea cycle metabolism, unspecified; K76.6 Portal hypertension; E87.5 Hyperkalemia; D69.59 Other secondary thrombocytopenia; K70.11 Alcoholic hepatitis with ascites; K70.31 Alcoholic cirrhosis of liver with ascites; D73.1 Hypersplenism; F10.10 Alcohol abuse, uncomplicated; E86.0 Dehydration; B19.20 Unspecified viral hepatitis C without hepatic coma; K31.89 Other diseases of stomach and duodenum; R73.9 Hyperglycemia, unspecified; D63.8 Anemia in other chronic diseases classified elsewhere; K21.9 Gastro-esophageal reflux disease without esophagitis; F17.210 Nicotine dependence, cigarettes, uncomplicated; Z23 Encounter for immunization; Z68.21 Body mass index [BMI] 21.0-21.9, adult; Z88.2 Allergy status to sulfonamides; Z88.0 Allergy status to penicillin; Z91.14 Patient's other noncompliance with medication regimen
CPT/HCPCS: 71010; 74177; 80053; 81001; 82140; 82248; 83735; 84100; 85025; 85610; 85730; 90686; 90732; 93005; 96361; 96374; J2405; J7030; J7040; Q2038; Q9967

== ENCOUNTER 2017-09-29 10:41 | Emergency (ER) | payer OTHER ==
[~2017-09-29] VITALS: Ht 185.4 cm; Wt 82.0 kg
[~2017-09-29 10:41] MED LIST changes: +BACI500O9 TOPICAL; -FLUC100T2 PO; -FURO1TAB60 PO; +FURO20TA PO; -NYST1000 SWISH-SWAL
[2017-09-29 10:59] VITALS: BP 143/78; PULSE 68; RESP 23; TEMP 98.4; O2SAT 98
[2017-09-29 11:03] VITALS: BP 143/78; PULSE 68; RESP 23; TEMP 98.4; O2SAT 98
[2017-09-29] MEDS ORDERED: XIFA200T4 PO (11:10)
[2017-09-29 11:11] VITALS: O2SAT 98
[2017-09-29] MEDS ORDERED: SODIUM CHLOR 0.9% 1000 ML INJ 1,000 ML IV SCH (11:15)
--- NOTE | 2017-09-29 11:17 | PD ---
HPI Chief Complaint: Altered Mental Status Time Seen by Provider: 11:02 Travel History International Travel<30 days: No Contact w/Intl Traveler<30days: No Traveled to known affect area: No History of Present Illness HPI 57-year-old male complains of mental confusion. Patient was admitted to [facility] September 23 and discharged September 25 for hepatic encephalopathy, severe protein calorie malnutrition, thrombocytopenia, anemia, poor appetite, liver cirrhosis, hypoglycemia, hyperkalemia, acute kidney injury. Patient denies any headache. Patient denies any neck pain. Patient denies any chest pain or shortness of breath. Patient denies abdominal pain. Patient denies any nausea vomiting diarrhea. Patient denies any fever chills. Patient has been taking medications as directed including lactulose and rifaximin. PFSH Past Medical History Arthritis: No Asthma: No Autoimmune Disease: No Blood Disorders: No Anxiety: No Depression: No Heart Rhythm Problems: No Cancer: No Cardiovascular Problems: No High Cholesterol: No Chest Pain: No Congestive Heart Failure: No Cirrhosis: Yes COPD: No Cerebrovascular Accident: No Diabetes: No Diminished Hearing: No Endocrine: No Gastrointestinal Disorders: Yes GERD: No Glaucoma: No Genitourinary: No Headaches: No Hepatitis: Yes Hiatal Hernia: No Heparin Induced Thrombocytopen: No Hypertension: No Immune Disorder: No Implanted Vascular Access Dvce: No Kidney Stones: No Musculoskeletal: Yes Neurologic: No Psychiatric: No Reproductive: No Respiratory: No Integumentary: Yes (CELLULITIS) Migraines: No Myocardial Infarction: No Renal Failure: No Seizures: No Sickle Cell Disease: No Sleep Apnea: No Thyroid Disease: No Ulcer: No Past Surgical History Abdominal Surgery: No AICD: No Appendectomy: No Arteriovenous Shunt: No Cardiac Surgery: No Cholecystectomy: No Ear Surgery: No Endocrine Surgery: No Eye Surgery: No Genitourinary Surgery: No Gynecologic Surgery: No Insulin Pump: No Joint Replacement: No Neurologic Surgery: No Oral Surgery: No Pacemaker: No Thoracic Surgery: No Other Surgery: Yes (LEFT HAND SURGERY) Social History Alcohol Use: Yes Tobacco Use: Yes Substance Use: No Allergies-Medications (Allergen,Severity, Reaction): Coded Allergies: Sulfa (Sulfonamide Antibiotics) (Unverified Allergy, Severe, SWELLING TO HANDS, 09/29/17) penicillin V (Verified Allergy, Severe, VOMITING, 09/29/17) Reported Meds & Prescriptions Reported Meds & Active Scripts Active Bacitracin Topical 500 Unit/Gm Oint 1 Applic TOPICAL BID Furosemide 20 Mg Tab 20 Mg PO DAILY Pantoprazole (Pantoprazole Sodium) 40 Mg Tab 40 Mg PO DAILY [Lactulose Liq] 30 ML Syrp 30 Ml PO BID Aldactone (Spironolactone) 100 Mg Tab 100 Mg PO BID@09,18 Propranolol (Propranolol HCl) 20 Mg Tab 20 Mg PO Q12HR Pentoxifylline ER (Pentoxifylline) 400 Mg Tab 400 Mg PO Q8HR Potassium Chloride ER (Potassium Chloride) 20 Meq Tab 20 Meq PO DAILY Folic Acid 1 Mg Tablet 1 Mg PO DAILY Reported Xifaxan (Rifaximin) 200 Mg Tab 400 Mg PO TID Review of Systems General / Constitutional: No: Fever Eyes: No: Visual changes HENT: No: Headaches Cardiovascular: No: Chest Pain or Discomfort Respiratory: No: Shortness of Breath Gastrointestinal: No: Abdominal Pain Genitourinary: No: Dysuria Musculoskeletal: No: Pain Skin: No Rash Neurologic: No: Weakness Psychiatric: No: Depression Endocrine: No: Polydipsia Hematologic/Lymphatic: No: Easy Bruising Physical Exam Narrative GENERAL: Well-nourished, well-developed patient. SKIN: Focused skin assessment warm/dry. Skin is jaundiced HEAD: Normocephalic. EYES: Bilateral scleral icterus. No injection or drainage. NECK: Supple, trachea midline. No JVD or lymphadenopathy. CARDIOVASCULAR: Regular rate and rhythm without murmurs, gallops, or rubs. RESPIRATORY: Breath sounds equal bilaterally. No accessory muscle use. GASTROINTESTINAL: Abdomen soft, non-tender, nondistended. MUSCULOSKELETAL: No cyanosis, or edema. BACK: Nontender without obvious deformity. No CVA tenderness. Neurologic exam: Patient's awake and alert oriented 3. No obvious focal neurological deficit. Data Data Last Documented VS Vital Signs Date Time Temp Pulse Resp B/P (MAP) Pulse Ox O2 Delivery O2 Flow Rate FiO2 09/29/17 11:11 98 Room Air 09/29/17 11:03 98.4 68 23 Orders Orders Complete Blood Count With Diff (09/29/17 11:08) Comprehensive Metabolic Panel (09/29/17 11:08) Prothrombin Time / Inr (Pt) (09/29/17 11:08) Act Partial Throm Time (Ptt) (09/29/17 11:08) Lipase (09/29/17 11:08) Urinalysis - C+S If Indicated (09/29/17 11:08) Magnesium (Mg) (09/29/17 11:08) Ammonia (09/29/17 11:08) Thyroid Stimulating Hormone (09/29/17 11:08) Phosphorus (Po4) (09/29/17 11:08) Chest, Single Ap (09/29/17 11:08) Ct Brain W/O Iv Contrast(Rout) (09/29/17 11:08) Iv Access Insert/Monitor (09/29/17 11:08) Ecg Monitoring (09/29/17 11:08) Oximetry (09/29/17 11:08) Sodium Chlor 0.9% 1000 Ml Inj (Ns 1000 M (09/29/17 11:15) Lactic Acid (09/29/17 11:18) Labs Laboratory Tests Test 09/29/17 11:15 White Blood Count 7.6 TH/MM3 Red Blood Count 4.00 MIL/MM3 Hemoglobin 13.7 GM/DL Hematocrit 40.1 % Mean Corpuscular Volume 100.2 FL Mean Corpuscular Hemoglobin 34.1 PG Mean Corpuscular Hemoglobin Concent 34.1 % Red Cell Distribution Width 18.7 % Platelet Count 106 TH/MM3 Mean Platelet Volume 8.7 FL Neutrophils (%) (Auto) 61.3 % Lymphocytes (%) (Auto) 23.3 % Monocytes (%) (Auto) 12.9 % Eosinophils (%) (Auto) 1.7 % Basophils (%) (Auto) 0.8 % Neutrophils # (Auto) 4.7 TH/MM3 Lymphocytes # (Auto) 1.8 TH/MM3 Monocytes # (Auto) 1.0 TH/MM3 Eosinophils # (Auto) 0.1 TH/MM3 Basophils # (Auto) 0.1 TH/MM3 CBC Comment DIFF FINAL Differential Comment Prothrombin Time 16.1 SEC Prothromb Time International Ratio 1.4 RATIO Activated Partial Thromboplast Time 34.4 SEC Blood Urea Nitrogen 20 MG/DL Creatinine 0.98 MG/DL Random Glucose 165 MG/DL Total Protein 8.7 GM/DL Albumin 3.0 GM/DL Calcium Level 9.1 MG/DL Phosphorus Level 3.0 MG/DL Magnesium Level 2.1 MG/DL Alkaline Phosphatase 156 U/L Aspartate Amino Transf (AST/SGOT) 156 U/L Alanine Aminotransferase (ALT/SGPT) 93 U/L Total Bilirubin 6.5 MG/DL Sodium Level 135 MEQ/L Potassium Level 4.4 MEQ/L Chloride Level 105 MEQ/L Carbon Dioxide Level 21.5 MEQ/L Anion Gap 9 MEQ/L Estimat Glomerular Filtration Rate 79 ML/MIN Lactic Acid Level 1.8 mmol/L Ammonia 42 MCMOL/L Lipase 1132 U/L Thyroid Stimulating Hormone 3rd Gen 1.150 uIU/ML MDM Medical Decision Making Medical Screen Exam Complete: Yes Emergency Medical Condition: Yes Interpretation(s) 12:08 PM. Last Impressions Chest X-Ray 09/29/17 1108 Signed Impressions: Service Date/Time: Friday, September 29, 2017 11:11 - CONCLUSION: No evidence of acute cardiopulmonary disease. Eliud Sanchez MD 12:[address] of the brain negative acute pathology. CBC WBC 7.6. Hemoglobin 13.7. Hematocrit 40.1. MCV 100.2. Platelet 106. Normal differential. Sodium 135. BUN 20. Lactic acid 1.8. Ammonia 42. INR 1.4. Differential Diagnosis Differential diagnosis including acute exacerbation of hepatic encephalopathy, electrolyte imbalance, dehydration, TIA, CVA, sepsis. Narrative Course 57-year-old male with increasing mental confusion. History of liver cirrhosis and hepatic encephalopathy. Normal saline solution 100 cc an hour. Diagnosis Primary Impression: Hepatic encephalopathy Patient Instructions: General Instructions Additional Instructions: Continue with medications as directed. Follow-up with personal physician. Return if worse. Med/Other Pt SpecificInfo: No Change to Meds Disposition: 01 DISCHARGE HOME Condition: Stable Jameson Quinonez MD Sep 29, 2017 11:17
--- NOTE | 2017-09-29 11:37 | RADRPT ---
EXAM DATE/TIME: 09/29/2017 11:11 [facility] COMPARISON: CHEST SINGLE AP, September 23, 2017, 14:25. INDICATIONS : Short of breath MEDICAL HISTORY : Cirrhosis. Hepatitis B. SURGICAL HISTORY : None. ENCOUNTER: Initial ACUITY: 3 days PAIN SCORE: 0/10 LOCATION: chest FINDINGS: A single view of the chest demonstrates the lungs to be symmetrically aerated without evidence of mas s, infiltrate or effusion. The cardiomediastinal contours are unremarkable. Osseous structures are intact. CONCLUSION: No evidence of acute cardiopulmonary disease. Eliud Sanchez MD on September 29, 2017 at 11:35 Board Certified Radiologist. This report was verified electronically.
[2017-09-29 11:39] LABS: AUTOMATED NEUTROPHIL # 4.7 TH/MM3 (1.8-7.7); BASOPHIL # 0.1 TH/MM3 (0-0.2); BASOPHIL % 0.8 % (0.0-2.0); EOSINOPHIL # 0.1 TH/MM3 (0-0.4); EOSINOPHIL % 1.7 % (0.0-4.0); HEMATOCRIT 40.1 % (39.0-51.0); HEMO FLAGS DIFF FINAL; LYMPH % 23.3 % (9.0-44.0); LYMPHOCYTE # 1.8 TH/MM3 (1.0-4.8); MEAN CELL VOLUME 100.2 FL (80.0-100.0); MEAN CORPUSCULAR HEMOGLOBIN 34.1 PG (27.0-34.0); MEAN CORPUSCULAR HGB CONC 34.1 % (32.0-36.0); MONO % 12.9 % (0.0-8.0); NEUT % 61.3 % (16.0-70.0); PLATELET COUNT 106 TH/MM3 (150-450); RED CELL DISTRIBUTION WIDTH 18.7 % (11.6-17.2); WHITE BLOOD COUNT 7.6 TH/MM3 (4.0-11.0)
[2017-09-29 11:50] LABS: APTT (PATIENT) 34.4 SEC (24.3-30.1); INTERNATIONAL NORMALIZED RATIO 1.4 RATIO; PROTHROMBIN TIME - PATIENT 16.1 SEC (9.8-11.6)
--- NOTE | 2017-09-29 11:57 | RADRPT ---
EXAM DATE/TIME: 09/29/2017 11:14 [facility] COMPARISON: No previous studies available for comparison. INDICATIONS : Dizziness, altered mental status. RADIATION DOSE: 56.35 CTDIvol (mGy) MEDICAL HISTORY : Cirrhosis. Hepatitis; increased ammonia levels SURGICAL HISTORY : None. ENCOUNTER: Initial ACUITY: 1 day PAIN SCALE: 0/10 LOCATION: cranial TECHNIQUE: Multiple contiguous axial images were obtained of the head. Using automated exposure control and adj ustment of the mA and/or kV according to patient size, radiation dose was kept as low as reasonably a chievable to obtain optimal diagnostic quality images. DICOM format image data is available electro nically for review and comparison. FINDINGS: CEREBRUM: The ventricles are normal for age. No evidence of midline shift, mass lesion, hemorrhage or acute in farction. No extra-axial fluid collections are seen. POSTERIOR FOSSA: The cerebellum and brainstem are intact. The 4th ventricle is midline. The cerebellopontine angle i s unremarkable. EXTRACRANIAL: The visualized portion of the orbits is intact. SKULL: The calvaria is intact. No evidence of skull fracture. CONCLUSION: Negative noncontrast head CT. Eliud Sanchez MD on September 29, 2017 at 11:55 Board Certified Radiologist. This report was verified electronically.
[2017-09-29 12:02] LABS: ANION GAP 9 MEQ/L (5-15); AST (GOT) 156 U/L (15-37); BICARBONATE 21.5 MEQ/L (21.0-32.0); BLOOD UREA NITROGEN 20 MG/DL (7-18); CHLORIDE 105 MEQ/L (98-107); GLOMERULAR FILTRATION RATE 79 ML/MIN (>89); MAGNESIUM 2.1 MG/DL (1.5-2.5); POTASSIUM 4.4 MEQ/L (3.5-5.1); SODIUM (NA) 135 MEQ/L (136-145)
[2017-09-29 12:14] LABS: ALKALINE PHOSPHATASE 156 U/L (45-117); ALT (GPT) 93 U/L (12-78); TOTAL BILIRUBIN ADULT 6.5 MG/DL (0.2-1.0)
== END 2017-09-29 13:46 | disposition home or self-care (01) ==
LOC: NEPC 10:41
DX: K72.90 Hepatic failure, unspecified without coma (principal); K74.60 Unspecified cirrhosis of liver; D64.9 Anemia, unspecified; D69.6 Thrombocytopenia, unspecified; Z72.0 Tobacco use; Z79.899 Other long term (current) drug therapy; Z88.2 Allergy status to sulfonamides; Z88.0 Allergy status to penicillin
CPT/HCPCS: 70450; 71010; 80053; 82140; 83605; 83690; 83735; 84100; 84443; 85025; 85610; 85730; 99285; J7030